=== PATIENT | female | born 1995 | race Hispanic/Latino ===

== ENCOUNTER 2018-08-28 19:50 | Emergency (ER) | payer SELFPAY ==
--- OUTSIDE RECORDS SUMMARY | 2018-08-28 19:52 | XMS REPORT | Continuity of Care Document ---
:1995 Author Organization Interface Problems Problem Status Onset Classification Date Comments Source Date Reported Discharge 02/14/2017 [place] Diagnosis: 7 [place] Acute pharyngitis VOMITING Active [place] 6 [place] Discharge 12/07/2015 [place] Diagnosis: 6 [place] Abdominal pain, acute Discharge 12/07/2015 [place] Diagnosis: 6 [place] Nausea & vomiting Medications Medication Details Route Status Patient Ordering Order Source Instructions Provider Date Acetaminophen 300 1 - 2 tab, No Longer [place] MG / Codeine PO, Q4H, Active 017 [facility] Phosphate 30 MG PRN Pain, X Oral Tablet 2 day, # 20 [Tylenol with tab, 0 Codeine #3] Refill(s) {21 See Active [place] (Methylprednisolo Instruction 017 [place] ne 4 MG Oral s, PO, Take Tablet [Medrol]) by mouth as } Pack [Medrol directed on Dosepak] label., # 1 Pack, 0 Refill(s) Dexamethasone 4 mg, 1 mL, Inactive [place] Route: IVP, 017 [place] Drug form: INJ, ONCE, Dosing Weight 34.091, kg, Priority: STAT, Start date: 02/11/17 9:52:00 CDT, Stop date: 02/11/17 9:52:00 CDTNotes: Concentrati on: 4mg/ml Sodium Chloride 1,000 mL, Inactive [place] 0.154 MEQ/ML 1000 ml/hr, 017 [place] Injectable Infuse Solution Over: 1 hr, Route: IV, 1,000, Drug form: INJ, ONCE, Priority: STAT, Dosing Weight 34.091 kg, Start date: 02/11/17 9:50:00 CDT, Duration: 1 doses or times, Stop date: 02/11/17 9:50:00 CDT Bicillin C-R 1,200,000 Inactive [place] unit, 2 mL, 017 [place] Route: IM, Drug form: INJ, ONCE, Dosing Weight 34.091, kg, Start date: 02/11/17 9:49:00 CDT, Stop date: 02/11/17 9:49:00 CDTNotes: (Same as: Bicillin CR) NOT For Daily Use Ondansetron 4 MG 4 mg=1 tab, Active [place] Disintegrating PO, BID, 016 [place] Tablet [Zofran] PRN Nausea and Vomiting, Dissolve tab under tongue, X 5 day, # 10 tab, 0 Refill(s) Sodium Chloride 1,000 mL, Inactive [place] 0.154 MEQ/ML Infuse 016 [place] Injectable Over: 1 hr, Solution Route: IV, ONCE, Priority: STAT, Dosing Weight 70.455 kg, Start date: 12/04/15 18:24:00, Duration: 1 doses or times, Stop date: 12/04/15 18:24:00 Saline Flush 0.9% 10 mL, Inactive [place] Route: IVP, 016 [place] Drug Form: INJ, Dosing Weight 70.455, kg, PRN, PRN Line Flush, Start date: 12/04/15 18:24:00, Duration: 30 day, Stop date: 01/03/16 18:23:00Not es: (Same as: BD Posiflush) Ondansetron 4 mg, Inactive [place] Route: IVP, 016 [place] ONCE, Dosing Weight 70.455, kg, Priority: STAT, Start date: 12/04/15 18:24:00, Stop date: 12/04/15 18:24:00 Allergies, Adverse Reactions, Alerts Substance Category Reaction Severity Reaction Status Date Comments Source type Reported Immunizations Immunization Date Given Site Status Last Updated Comments Source Results Order Name Results Value Reference Date Interpretation Comments Source Range URINE AND UA <=1.0 mg/dL 0.1 - 1.0 02/11 [facility] Urobilinogen /2016 [place] URINE AND UA Spec Grav 1.016 <=1.030 02/11 STOOL /2016 [place] URINE AND UA Bacteria Occasional None Seen 02/11 [facility] /HPF /HPF /2016 [place] URINE AND UA Mucus Few /LPF None Seen 02/11 [facility] /LPF /2016 [place] URINE AND UA Leuk Est Negative Negative 02/11 [place] (02/11/17 11:23 AM) [place] URINE AND UA RBC null 0 - 2 02/11 [place] URINE AND UA WBC 1 /HPF 0 - 5 02/11 [place] URINE AND UA Sq Epi Occasional Few /LPF 02/11 STOOL /LPF /2016 [place] URINE AND UA Glucose Negative Negative 02/11 [facility] mg/dL mg/dL [place] URINE AND UA Blood Negative Negative 02/11 [place] (02/11/17 11:23 AM) [place] URINE AND UA Bili Negative Negative 02/11 [place] *NA* [place] (02/11/17 11:23 AM) URINE AND UA Ketones Negative Negative 02/11 [facility] mg/dL mg/dL [place] URINE AND UA Nitrite Negative Negative 02/11 [place] (02/11/17 11:23 AM) [place] URINE AND UA Color Yellow Yellow 02/11 [place] *NA* [place] (02/11/17 11:23 AM) URINE AND UA Turbidity Slight Clear 02/11 [place] *ABN* [place] (02/11/17 11:23 AM) URINE AND UA pH 5.0 5.0 - 8.0 02/11 [place] URINE AND UA Protein Negative Negative 02/11 [facility] mg/dL mg/dL [place] URINE CHEM U Preg Negative Negative 02/11 [place] (02/11/17 11:23 AM) [place] CHEM PANEL Lipase Lvl 125 unit/L 73 - 393 02/11 [place] CHEM PANEL eGFR 120 02/11 Result Comment: The eGFR is calculated using the CKD-EPI formula. In most young, healthy individuals the eGFR will be >90 mL/ min/1.73m2. The eGFR declines with age. An eGFR of 60-89 may be normal in mL/min/1.73 some populations, particularly the elderly, for whom the CKD-EPI formula has not been extensively validated. Use of the eGFR is not recommended in the following populations: [place] m2 [place] Individuals with unstable creatinine concentrations, including patients and those with serious co-morbid conditions. Patients with extremes in muscle mass or diet. The data above are obtained from the National Kidney Disease Education Program (NKDEP) which additionally recommends that when the eGFR is used in patients with extremes of body mass index for purposes of drug dosing, the eGFR should be multiplied by the estimated BMI. CHEM PANEL Potassium Lvl 3.5 meq/L 3.5 - 5.1 02/11 [place] CHEM PANEL Sodium Lvl 137 meq/L 135 - 145 02/11 [place] CHEM PANEL Calcium Lvl 9.3 mg/dL 8.5 - 10.5 02/11 [place] CHEM PANEL CO2 29 meq/L 24 - 32 02/11 [place] CHEM PANEL Chloride Lvl 100 meq/L 95 - 109 02/11 [place] CHEM PANEL Glucose Lvl 128 mg/dL 70 - 99 02/11 [place] CHEM PANEL BUN 7 mg/dL 7 - 22 02/11 [place] CHEM PANEL Creatinine 0.73 mg/dL 0.50 - 02/11 Lvl 1.40 [place] CHEM PANEL AGAP 11.5 meq/L 10.0 - 02/11 MH 20.0 [place] HEMATOLOGY RBC 4.55 M/CMM 4.20 - 02/11 MH 5.40 [place] HEMATOLOGY WBC 23.3 K/CMM 3.7 - 10.4 02/11 [place] HEMATOLOGY Hgb 12.9 g/dL 12.0 - 02/11 MH 16.0 [place] HEMATOLOGY MCH 28.5 pg 27.0 - 02/11 MH 31.0 [place] HEMATOLOGY Hct 39.4 % 36.0 - 02/11 MH 48.0 [place] HEMATOLOGY MCV 86.5 fL 80.0 - 02/11 MH 98.0 [place] HEMATOLOGY Platelet 273 K/CMM 133 - 450 02/11 [place] HEMATOLOGY MCHC 32.9 g/dL 32.0 - 02/11 MH 36.0 [place] HEMATOLOGY RDW 13.8 % 11.5 - 02/11 MH 14. [place] HEMATOLOGY MPV 9.6 fL 7.4 - 10.4 02/11 [place] HEMATOLOGY Segs-Bands # 21.4 K/CMM 1.5 - 8.1 02/11 [place] HEMATOLOGY Monocytes # 0.7 K/CMM 0.0 - 0.8 02/11 [place] HEMATOLOGY Segs 80.0 % 45.0 - 02/11 75.0 [place] HEMATOLOGY Lymphocytes # 1.2 K/CMM 1.0 - 5.5 02/11 [place] HEMATOLOGY Bands 12.0 % 0.0 - 11.0 02/11 [place] HEMATOLOGY Lymphocytes 5.0 % 20.0 - 02/11 40.0 [place] HEMATOLOGY Plt Morph Normal 02/11 [facility] (02/11/17 10:09 AM) [facility] HEMATOLOGY Atypical 0.0 % <=0.0 % 02/11 Lymphs [place] HEMATOLOGY Tot Cell Ct 100 02/11 [place] HEMATOLOGY Monocytes 3.0 % 2.0 - 12.0 02/11 [place] HEMATOLOGY Smudge Slight 02/11 [place] HEMATOLOGY Hypochrom 1+ None Seen 02/11 [facility] (02/11/17 10:09 AM) [facility] Neck soft Neck soft CT neck soft tissues with intravenous contrast 02/11/2017 11:12 AM CDT 02/11 - tissue w tissue w - [facility] contrast CT contrast CT [facility] Clinical: Evaluate for abscess, fever, sore throat. Read by: Corey Bui MD Dictated Date/time: 02/11/17 12:09 Electronically Signed by: Corey Bui MD 02/11/17 12:15 FINAL REPORT Comparison: No prior exam. Technique: Axial images were obtained. Sagittal and coronal MPR images are also submitted. The DLP is 435 mGy*cm. This exam was performed according to our department dose optimization protocol, which i ncludes automated exposure control, adjustment of the mA and/or kV according to patient size and/or use of iterative reconstruction technique. Findings: Moderate prominence of the bilateral palatine tonsils is seen. No tonsillar abscess is seen. No parapharyngeal or peritonsillar abscess or cellulitis is identified. The retropharyngeal soft tissues appear symmetric. The upper aerodigestive tract otherwise appears unremarkable. The major salivary glands and thyroid gland appear unremarkable. Bilateral upper deep cervical chain (bilateral levels 2A) adenopathy is present, measuring up to 2.9 x 1.5 cm on the left. Scattered shotty lymph nodes are seen in the lower neck stations. No lymph node necrosis is identified. The visualized paranasal sinuses appear well aerated. The cervical spine appears unremarkable. Impression: 1. Moderately prominent bilateral palatine tonsils. No tonsillar or peritonsillar abscess identified. Normal retropharyngeal soft tissues. 2. Bilateral upper neck adenopathy, likely reactive. Follow-up recommended. URINE AND UA WBC 0-2 /HPF None Seen 12/04 [facility] /HPF [place] URINE AND UA Sq Epi Few /LPF Few /LPF 12/04 [facility] [place] URINE AND UA RBC None Seen 0 - 2 12/04 [facility] [place] (12/04/15 7:39 PM) [place] URINE AND UA Bacteria Few /HPF None Seen 12/04 [facility] /HPF [place] URINE AND UA Mucus Few /LPF None Seen 12/04 [facility] /LPF /2015 [place] URINE AND UA Ketones Negative Negative 12/04 [facility] mg/dL mg/dL [place] URINE AND UA Glucose Negative Negative 12/04 [facility] mg/dL mg/dL [place] URINE AND UA Protein Negative Negative 12/04 [facility] mg/dL mg/dL [place] URINE AND UA 0.2 EU/dL 0.1 - 1.0 12/04 [facility] Urobilinogen [place] URINE AND UA Blood Negative Negative 12/04 [facility] [place] (12/04/15 7:39 PM) [place] URINE AND UA Leuk Est Negative Negative 12/04 [facility] [place] (12/04/15 7:39 PM) [place] URINE AND UA Nitrite Negative Negative 12/04 STO[facility] [place] (12/04/15 7:39 PM) [place] URINE AND UA Bili Negative Negative 12/04 [facility] [place] *NA* [place] (12/04/15 7:39 PM) URINE AND UA Color Yellow Yellow 12/04 [facility] [place] *NA* [place] (12/04/15 7:39 PM) URINE AND UA Turbidity Clear Clear 12/04 [facility] [place] (12/04/15 7:39 PM) [place] URINE AND UA pH 7.5 5.0 - 8.0 12/04 [facility] [place] URINE AND UA Spec Grav 1.020 <=1.030 12/04 [place] [place] URINE CHEM U Preg Negative Negative 12/04 [place] (12/04/15 7:39 PM) [place] CHEM PANEL Lipase Lvl 111 unit/L 73 - 393 12/03 [place] CHEM PANEL Globulin 3.8 g/dL 2.0 - 4.0 12/03 [place] CHEM PANEL B/C Ratio 6 6 - 25 12/03 [place] CHEM PANEL AGAP 10.5 meq/L 10.0 - 12/03 MH 20.0 /2015 [place] CHEM PANEL A/G Ratio 1.0 0.7 - 1.6 12/03 [place] CHEM PANEL Glucose Lvl 96 mg/dL 70 - 99 12/03 [place] CHEM PANEL BUN 5 mg/dL 7 - 22 12/03 [place] CHEM PANEL CO2 27 meq/L 24 - 32 12/03 [place] CHEM PANEL Chloride Lvl 107 meq/L 95 - 109 12/03 [place] CHEM PANEL Potassium Lvl 3.5 meq/L 3.5 - 5.1 12/03 [place] CHEM PANEL Sodium Lvl 141 meq/L 135 - 145 12/03 [place] CHEM PANEL Creatinine 0.77 mg/dL 0.50 - 12/03 [facility] Lvl 1.40 [place] CHEM PANEL AST 76 unit/L 0 - 37 12/03 [place] CHEM PANEL ALT 132 unit/L 0 - 65 12/03 [place] CHEM PANEL Albumin Lvl 3.8 g/dL 3.5 - 5.0 12/03 [place] CHEM PANEL Total Protein 7.6 g/dL 6.4 - 8.4 12/03 [place] CHEM PANEL Calcium Lvl 8.6 mg/dL 8.5 - 10.5 12/03 [place] CHEM PANEL Bili Total 0.7 mg/dL 0.2 - 1.3 12/03 [place] CHEM PANEL Alk Phos 98 unit/L 39 - 136 12/03 [place] CHEM PANEL eGFR 114 12/03 Result Comment: The eGFR is calculated using the CKD-EPI formula. In most young, healthy individuals the eGFR will be >90 mL/ min/1.73m2. The eGFR declines with age. An eGFR of 60-89 may be normal in [place] mL/min/1.73 /2016 some populations, particularly the elderly, for whom the CKD-EPI formula has not been extensively validated. Use of the eGFR is not recommended in the following populations: [place] m2 [place] Individuals with unstable creatinine concentrations, including patients and those with serious co-morbid conditions. Patients with extremes in muscle mass or diet. The data above are obtained from the National Kidney Disease Education Program (NKDEP) which additionally recommends that when the eGFR is used in patients with extremes of body mass index for purposes of drug dosing, the eGFR should be multiplied by the estimated BMI. HEMATOLOGY MCV 82.7 fL 80.0 - 12/03 [facility] 98.0 /2015 [place] HEMATOLOGY MCH 27.1 pg 27.0 - 12/03 MH 31.0 /2015 [place] HEMATOLOGY Hct 32.5 % 36.0 - 12/03 MH 48.0 /2015 [place] HEMATOLOGY Hgb 10.6 g/dL 12.0 - 12/03 MH 16.0 [place] HEMATOLOGY MPV 9.7 fL 7.4 - 10.4 12/03 [place] HEMATOLOGY RBC 3.93 M/CMM 4.20 - 12/03 MH 5.40 /2015 [place] HEMATOLOGY WBC 4.9 K/CMM 3.7 - 10.4 12/03 [place] HEMATOLOGY Platelet 276 K/CMM 133 - 450 12/03 [place] HEMATOLOGY RDW 14.4 % 11.5 - 12/03 MH 14.5 [place] HEMATOLOGY MCHC 32.8 g/dL 32.0 - 12/03 MH 36.0 /2016 [place] HEMATOLOGY Segs 68.1 % 45.0 - 12/03 MH 75.0 /2015 [place] HEMATOLOGY Segs-Bands # 3.3 K/CMM 1.5 - 8.1 12/03 [place] HEMATOLOGY Basophils 0.8 % 0.0 - 1.0 12/03 [place] HEMATOLOGY Monocytes 16.0 % 2.0 - 12.0 12/03 [place] HEMATOLOGY Eosinophils 0.8 % 0.0 - 4.0 12/03 [place] HEMATOLOGY Lymphocytes 14.3 % 20.0 - 12/03 MH 40.0 2016 [place] HEMATOLOGY Eosinophils # 0.0 K/CMM 0.0 - 0.5 12/03 [place] HEMATOLOGY Monocytes # 0.8 K/CMM 0.0 - 0.8 12/03 [place] HEMATOLOGY Basophils # 0.0 K/CMM 0.0 - 0.2 12/03 [place] HEMATOLOGY Lymphocytes # 0.7 K/CMM 1.0 - 5.5 12/03 [place] Abdomen/Pel Abdomen/Pelvi EXAM: 12/03 - vis w IV s w IV /2015 - [facility] contrast CT contrast CT CT abdomen and pelvis with contrast. [facility] Read by: Roman Watts MD Dictated Date/time: 12/04/15 21:12 INDICATION: Electronically Signed by: Roman Watts MD 12/04/15 21:14 FINAL REPORT Abdominal pain, acute. TECHNIQUE: Contiguous axial CT images of the abdomen and pelvis. Intravenous contrast: Present. Oral contrast: Absent. DLP 834 mGy-cm. COMPARISON: None. FINDINGS: Lower chest: Partially imaged. Lung bases: Unremarkable. Cardiac apex: Unremarkable. Solid abdominal viscera: Liver: Unremarkable. Gallbladder: Unremarkable. Pancreas: Unremarkable. Spleen: Unremarkable. Adrenal glands: Unremarkable. Right kidney: No hydronephrosis. Left kidney: No hydronephrosis. Urinary bladder: Unremarkable. Abdominal aorta: Unremarkable. Peritoneal: Free fluid: Trace Free air: None. Other: No pathologic sized lymph nodes in the upper abdomen. Bowel: Stomach: Unremarkable. Small bowel: Unremarkable. Appendix: Unremarkable. Colon: Unremarkable. Rectum: Unremarkable. Uterus: Unremarkable. Bones: Unremarkable. IMPRESSION: 1. No CT evidence of acute process of the abdomen. Normal appendix Chest 1view Chest 1view EXAM: 12/03 - DX DX - [facility] Single view chest. [place] Read by: Roman Watts MD Dictated Date/time: 12/04/15 19:42 INDICATION: Electronically Signed by: Roman Watts MD 12/04/15 19:43 FINAL REPORT Chest pain. COMPARISON: Chest x-ray: None. FINDINGS: Cardiac silhouette: Unremarkable. Elenita: Unremarkable. Lobar consolidation: None. Pleural effusion: None. Pneumothorax: None. Other: None. Bones: Unremarkable. Other: None. IMPRESSION: 1. No acute cardiopulmonary process. Vital Signs Vital Sign Value Date Comments Source Systolic (mm Hg) 116 02/11/2017 [facility] Diastolic (mm Hg) 73 02/11/2017 [facility] [place] Temperature Oral (F) 100 F 02/11/2017 [place] Respitory Rate 20 02/11/2017 [place] Heart Rate 111 02/11/2017 [place] Heart Rate 134 02/11/2017 [place] Systolic (mm Hg) 139 02/11/2017 [place] Diastolic (mm Hg) 89 02/11/2017 [place] Weight 34.091 02/11/2017 [place] Temperature Oral (F) 100.0 F 02/11/2017 [place] Respitory Rate 20 02/11/2017 [place] Systolic (mm Hg) 127 12/05/2015 [place] Diastolic (mm Hg) 79 12/05/2015 [place] Temperature Oral (F) 98.9 F 12/05/2015 [place] Respitory Rate 18 12/05/2015 [place] Heart Rate 90 12/05/2015 [place] Temperature Oral (F) 99.5 F 12/05/2015 [place] Respitory Rate 18 12/05/2015 [place] Heart Rate 92 12/05/2015 [place] Systolic (mm Hg) 125 12/05/2015 [place] Diastolic (mm Hg) 81 12/05/2015 [place] Weight 70.455 12/04/2015 [place] BMI Calculated 27.51 12/04/2015 [place] Heart Rate 100 12/04/2015 [place] Systolic (mm Hg) 122 12/04/2015 [place] Diastolic (mm Hg) 85 12/04/2015 [place] Height 160.02 cm 12/04/2015 [place] Respitory Rate 18 12/04/2015 [place] Temperature Oral (F) 99.7 F 12/04/2015 [place] Encounters Location Location Encounter Encounter Reason Attending ADM DC Status Source Details Type Number For Provider Date Date Visit [facility] [id number] [facility] 12/03 12/04 [facility] [place] /[facility] [place] [facility] [id number] [place] 02/11 02/11 [place] /2016 [place] Procedures Procedure Code Date Perfomer Comments Source Biopsy of liver [id number] [place]
--- OUTSIDE RECORDS SUMMARY | 2018-08-28 19:53 | XMS REPORT | Summary of Care ---
:1995 Author Organization [facility] Address [address], [place] [address]- Encounter [facility]) [id number] Date(s): 02/11/17 - 02/11/17 [facility] [address] [place] [address]- Discharge Diagnosis: Acute pharyngitis Discharge Disposition: Home or Self Care Attending Physician: Brooke Eli MD Vital Signs Most recent to oldest [Reference Range]: 1 2 Temperature Oral [96.4-99.1 DegF] 100 DegF 100.0 DegF *HI* *HI* (02/11/17 12:54 PM) (02/11/17 9:30 AM) Blood Pressure [90-140/60-90 mmHg] 116/73 mmHg 139/89 mmHg (02/11/17 12:54 PM) (02/11/17 9:30 AM) Respiratory Rate [14-20 BRMIN] 20 BRMIN 20 BRMIN (02/11/17 12:54 PM) (02/11/17 9:30 AM) Peripheral Pulse Rate [60-100 bpm] 111 bpm 134 bpm *HI* *HI* (02/11/17 12:54 PM) (02/11/17 9:30 AM) Weight 34.091 kg (02/11/17 9:30 AM) Problem List Condition Effective Dates Status Health Status Informant Liver problem(Confirmed)1 Resolved 1Fatty Allergies, Adverse Reactions, Alerts Substance Reaction Severity Status NKDA Active Medications Bicillin C-R 1,200,000 unit, 2 mL, Route: IM, Drug form: INJ, ONCE, Dosing Weight 34.091, kg , Start date: 02/11/17 9:49:00 CDT, Stop date: 02/11/17 9:49:00 CDT Notes: (Same as: Bicillin CR) NOT For Daily Use Start Date: 02/11/17 Stop Date: 02/11/17 Status: Completeddexamethasone 4 mg, 1 mL, Route: IVP, Drug form: INJ, ONCE, Dosing Weight 34.091, kg, Priority : STAT, Start date: 02/11/17 9:52:00 CDT, Stop date: 02/11/17 9:52:00 CDT Notes: Concentration: 4mg/ml Start Date: 02/11/17 Stop Date: 02/11/17 Status: CompletedMedrol Dosepak 4 mg oral tablet See Instructions, PO, Take by mouth as directed on label., # 1 Pack, 0 Refill(s) Start Date: 02/11/17 Stop Date: 02/17/17 Status: OrderedSodium Chloride 0.9% (Bolus) IV 1,000 mL, 1000 ml/hr, Infuse Over: 1 hr, Route: IV, 1,000, Drug form: INJ, ONCE , Priority: STAT, Dosing Weight 34.091 kg, Start date: 02/11/17 9:50:00 CDT, Duration: 1 doses or times, Stop date: 02/11/17 9:50:00 CDT Start Date: 02/11/17 Stop Date: 02/11/17 Status: CompletedTylenol with Codeine #3 oral tablet 1 - 2 tab, PO, Q4H, PRN Pain, X 2 day, # 20 tab, 0 Refill(s) Start Date: 02/11/17 Stop Date: 02/13/17 Status: Completed Results ELECTROLYTES Most recent to oldest [Reference Range]: 1 Sodium Lvl [135-145 mEq/L] 137 mEq/L (02/11/17 10:09 AM) Potassium Lvl [3.5-5.1 mEq/L] 3.5 mEq/L (02/11/17 10:09 AM) Chloride Lvl [95-109 mEq/L] 100 mEq/L (02/11/17 10:09 AM) CO2 [24-32 mEq/L] 29 mEq/L (02/11/17 10:09 AM) AGAP [10.0-20.0 mEq/L] 11.5 mEq/L (02/11/17 10:09 AM) CHEM PANEL Most recent to oldest [Reference Range]: 1 Creatinine Lvl [0.50-1.40 mg/dL] 0.73 mg/dL (02/11/17 10:09 AM) eGFR 120 mL/min/1.73m2 1 *NA* (02/11/17 10:09 AM) BUN [7-22 mg/dL] 7 mg/dL (02/11/17 10:09 AM) Glucose Lvl [70-99 mg/dL] 128 mg/dL *HI* (02/11/17 10:09 AM) Calcium Lvl [8.5-10.5 mg/dL] 9.3 mg/dL (02/11/17 10:09 AM) Lipase Lvl [73-393 unit/L] 125 unit/L (02/11/17 10:09 AM) 1Result Comment: The eGFR is calculated using the CKD-EPI formula. In most young , healthy individualsthe eGFR will be >90 mL/min/1.73m2. The eGFR declines with age. An eGFR of 60-89 may be normal in some populations, particularly the elderly, for whom the CKD-EPI formula has not been extensively validated. Use of the eGFR is not recommended in the following populations: Individuals with unstable creatinine concentrations, including patients and those with serious co-morbid conditions. Patients with extremes in muscle mass or diet. The data above are obtained from the National Kidney Disease Education Program ( NKDEP) which additionally recommends that when the eGFR is used in patients with extremes of body mass index for purposesof drug dosing, the eGFR should be multiplied by the estimated BMI.URINE CHEM Most recent to oldest [Reference Range]: 1 U Preg [Negative] Negative (02/11/17 11:23 AM) URINE AND STOOL Most recent to oldest [Reference Range]: 1 UA Turbidity [Clear] Slight *ABN* (02/11/17 11:23 AM) UA Color [Yellow] Yellow *NA* (02/11/17 11:23 AM) UA pH [5.0-8.0] 5.0 (02/11/17 11:23 AM) UA Spec Grav [<=1.030] 1.016 (02/11/17 11:23 AM) UA Glucose [Negative mg/dL] Negative mg/dL *NA* (02/11/17 11:23 AM) UA Blood [Negative] Negative (02/11/17 11:23 AM) UA Ketones [Negative mg/dL] Negative mg/dL *NA* (02/11/17 AM) UA Protein [Negative mg/dL] Negative mg/dL (02/11/17 AM) UA Urobilinogen [0.1-1.0 mg/dL] <=1.0 mg/dL *NA* (02/11/17 AM) UA Bili [Negative] Negative *NA* (02/11/17 AM) UA Leuk Est [Negative] Negative (02/11/17:23 AM) UA Nitrite [Negative] Negative (02/11/17 AM) UA WBC [0-5 /HPF] 1 /HPF (02/11/17 AM) UA RBC [0-2 /HPF] <1 /HPF (02/11/17: AM) UA Bacteria [None Seen /HPF] Occasional /HPF *NA* (02/11/17 AM) UA Sq Epi [Few /LPF] Occasional /LPF *NA* (02/11/17:23 AM) UA Mucus [None Seen /LPF] Few /LPF *NA* (02/11/17 11:23 AM) HEMATOLOGY Most recent to oldest [Reference Range]: 1 WBC [3.7-10.4 K/CMM] 23.3 K/CMM *HI* (02/11/17 10:09 AM) RBC [4.20-5.40 M/CMM] 4.55 M/CMM (02/11/17 10:09 AM) Hgb [12.0-16.0 g/dL] 12.9 g/dL (02/11/17 10:09 AM) Hct [36.0-48.0 %] 39.4 % (02/11/17 10:09 AM) MCV [80.0-98.0 fL] 86.5 fL (02/11/17 10:09 AM) MCH [27.0-31.0 pg] 28.5 pg (02/11/17 10:09 AM) MCHC [32.0-36.0 g/dL] 32.9 g/dL (02/11/17 10:09 AM) RDW [11.5-14.5 %] 13.8 % (02/11/17 10:09 AM) Platelet [133-450 K/CMM] 273 K/CMM (02/11/17 10:09 AM) MPV [7.4-10.4 fL] 9.6 fL (02/11/17 10:09 AM) Segs [45.0-75.0 %] 80.0 % *HI* (02/11/17 10:09 AM) Bands [0.0-11.0 %] 12.0 % *HI* (02/11/17 10:09 AM) Lymphocytes [20.0-40.0 %] 5.0 % *LOW* (02/11/17 10:09 AM) Atypical Lymphs [<=0.0 %] 0.0 % (02/11/17 10:09 AM) Monocytes [2.0-12.0 %] 3.0 % (02/11/17 10:09 AM) Segs-Bands # [1.5-8.1 K/CMM] 21.4 K/CMM *HI* (02/11/17 10:09 AM) Lymphocytes # [1.0-5.5 K/CMM] 1.2 K/CMM (02/11/17 10:09 AM) Monocytes # [0.0-0.8 K/CMM] 0.7 K/CMM (02/11/17 10:09 AM) Tot Cell Ct 100 *NA* (02/11/17 10:09 AM) Hypochrom [None Seen] 1+ (02/11/17 10:09 AM) Smudge Slight *Unknown* (02/11/17 10:09 AM) Plt Morph Normal (02/11/17 10:09 AM) Immunizations No data available for this section Procedures Procedure Date Related Diagnosis Body Site Biopsy of liver Social History Social History Type Response Smoking Status Never smoker; Ready to change: No; Concerns about tobacco use in household: No; Exposure to Tobacco Smoke None; Cigarette Smoking Last 365 Days No; Reg Smoking Cessation Counseling No Assessment and Plan No data available for this section
--- OUTSIDE RECORDS SUMMARY | 2018-08-28 19:53 | XMS REPORT | Summary of Care ---
:[address] [facility] Address [address], [place] [address]- Encounter HQ Yane(MARY ELLEN) [id number] Date(s): 12/04/15 - 12/04/[address] [facility] [address] [place] [address]- Discharge Diagnosis: Abdominal pain, acute Discharge Diagnosis: Nausea & vomiting Discharge Disposition: Home Attending Physician: Brooke Eli MD Vital Signs Most recent to oldest 1 2 3 [Reference Range]: Height 160.02 cm (12/04/15 5:31 PM) Temperature Oral [96.4-99.1 98.9 DegF 99.5 DegF 99.7 DegF DegF] (12/04/15 9:34 PM) *HI* *HI* (12/04/15 7:47 PM) (12/04/15 5:31 PM) Blood Pressure [90-140/60-90 127/79 mmHg 125/81 mmHg 122/85 mmHg mmHg] (12/04/15 9:34 PM) (12/04/15 7:47 PM) (12/04/15 5:31 PM) Respiratory Rate [14-20 BRMIN] 18 BRMIN 18 BRMIN 18 BRMIN (12/04/15 9:34 PM) (12/04/15 7:47 PM) (12/04/15 5:31 PM) Peripheral Pulse Rate [60-100 90 bpm 92 bpm 100 bpm bpm] (12/04/15 9:34 PM) (12/04/15 7:47 PM) (12/04/15 5:31 PM) Weight 70.455 kg (12/04/15 5:31 PM) Body Mass Index 27.51 m2 (12/04/15 5:31 PM) Problem List Condition Effective Dates Status Health Status Informant Liver problem(Confirmed)1 Resolved 1Fatty Allergies, Adverse Reactions, Alerts Substance Reaction Severity Status NKDA Active Medications ondansetron 4 mg, Route: IVP, ONCE, Dosing Weight 70.455, kg, Priority: STAT, Start date: 18:24:00, Stop date: 12/04/15 18:24:00 Start Date: 12/04/15 Stop Date: 12/04/15 Status: CompletedSaline Flush 0.9% 10 mL, Route: IVP, Drug Form: INJ, Dosing Weight 70.455, kg, PRN, PRN Line Flush , Start date: 12/04/15 18:24:00, Duration: 30 day, Stop date: 01/03/16 18:23:00 Notes: (Same as: BD Posiflush) Start Date: 12/04/15 Stop Date: 12/04/15 Status: DiscontinuedSodium Chloride 0.9% (Bolus) IV 1,000 mL, Infuse Over: 1 hr, Route: IV, ONCE, Priority: STAT, Dosing Weight 70.455 kg, Start date: 12/04/15 18:24:00, Duration: 1 doses or times, Stop date : 12/04/15 18:24:00 Start Date: 12/04/15 Stop Date: 12/04/15 Status: CompletedZofran ODT 4 mg oral tablet, disintegrating 4 mg=1 tab, PO, BID, PRN Nausea and Vomiting, Dissolve tab under tongue, X 5 day , # 10 tab, 0 Refill(s) Start Date: 12/04/15 Stop Date: 12/09/15 Status: Ordered Results ELECTROLYTES Most recent to oldest [Reference Range]: 1 Sodium Lvl [135-145 mEq/L] 141 mEq/L (12/04/15 6:28 PM) Potassium Lvl [3.5-5.1 mEq/L] 3.5 mEq/L (12/04/15 6:28 PM) Chloride Lvl [95-109 mEq/L] 107 mEq/L (12/04/15 6:28 PM) CO2 [24-32 mEq/L] 27 mEq/L (12/04/15 6:28 PM) AGAP [10.0-20.0 mEq/L] 10.5 mEq/L (12/04/15 6:28 PM) CHEM PANEL Most recent to oldest [Reference Range]: 1 Creatinine Lvl [0.50-1.40 mg/dL] 0.77 mg/dL (12/04/15 6:28 PM) eGFR 114 mL/min/1.73m2 1 *NA* (12/04/15 6:28 PM) BUN [7-22 mg/dL] 5 mg/dL *LOW* (12/04/15 6:28 PM) B/C Ratio [6-25] 6 (12/04/15 6:28 PM) Glucose Lvl [70-99 mg/dL] 96 mg/dL (12/04/15 6:28 PM) Total Protein [6.4-8.4 g/dL] 7.6 g/dL (12/04/15 6:28 PM) Albumin Lvl [3.5-5.0 g/dL] 3.8 g/dL (12/04/15 6:28 PM) Globulin [2.0-4.0 g/dL] 3.8 g/dL (12/04/15 6:28 PM) A/G Ratio [0.7-1.6] 1.0 (12/04/15 6:28 PM) Calcium Lvl [8.5-10.5 mg/dL] 8.6 mg/dL (12/04/15 6:28 PM) ALT [0-65 unit/L] 132 unit/L *HI* (12/04/15 6:28 PM) AST [0-37 unit/L] 76 unit/L *HI* (12/04/15 6:28 PM) Alk Phos [39-136 unit/L] 98 unit/L (12/04/15 6:28 PM) Bili Total [0.2-1.3 mg/dL] 0.7 mg/dL (12/04/15 6:28 PM) Lipase Lvl [73-393 unit/L] 111 unit/L (12/04/15 6:28 PM) 1Result Comment: The eGFR is calculated using [...] [Reference Range]: 1 U Preg [Negative] Negative (12/04/15 7:39 PM) URINE AND STOOL Most recent to oldest [Reference Range]: 1 UA Turbidity [Clear] Clear (12/04/15 7:39 PM) UA Color [Yellow] Yellow *NA* (12/04/15 7:39 PM) UA pH [5.0-8.0] 7.5 (12/04/15 7:39 PM) UA Spec Grav [<=1.030] 1.020 (12/04/15 7:39 PM) UA Glucose [Negative mg/dL] Negative mg/dL (12/04/15 7:39 PM) UA Blood [Negative] Negative (12/04/15 7:39 PM) UA Ketones [Negative mg/dL] Negative mg/dL *NA* (12/04/15 7:39 PM) UA Protein [Negative mg/dL] Negative mg/dL (12/04/15 7:39 PM) UA Urobilinogen [0.1-1.0 EU/dL] 0.2 EU/dL (12/04/15 7:39 PM) UA Bili [Negative] Negative *NA* (12/04/15 7:39 PM) UA Leuk Est [Negative] Negative (12/04/15 7:39 PM) UA Nitrite [Negative] Negative (12/04/15 7:39 PM) UA WBC [None Seen /HPF] 0-2 /HPF (12/04/15 7:39 PM) UA RBC [0-2] None Seen (12/04/15 7:39 PM) UA Bacteria [None Seen /HPF] Few /HPF (12/04/15 7:39 PM) UA Sq Epi [Few /LPF] Few /LPF (12/04/15 7:39 PM) UA Mucus [None Seen /LPF] Few /LPF (12/04/15 7:39 PM) HEMATOLOGY Most recent to oldest [Reference Range]: 1 WBC [3.7-10.4 K/CMM] 4.9 K/CMM (12/04/15 6:28 PM) RBC [4.20-5.40 M/CMM] 3.93 M/CMM *LOW* (12/04/15 6:28 PM) Hgb [12.0-16.0 g/dL] 10.6 g/dL *LOW* (12/04/15 6:28 PM) Hct [36.0-48.0 %] 32.5 % *LOW* (12/04/15 6:28 PM) MCV [80.0-98.0 fL] 82.7 fL (12/04/15 6:28 PM) MCH [27.0-31.0 pg] 27.1 pg (12/04/15 6:28 PM) MCHC [32.0-36.0 g/dL] 32.8 g/dL (12/04/15 6:28 PM) RDW [11.5-14.5 %] 14.4 % (12/04/15 6:28 PM) Platelet [133-450 K/CMM] 276 K/CMM (12/04/15 6:28 PM) MPV [7.4-10.4 fL] 9.7 fL (12/04/15 6:28 PM) Segs [45.0-75.0 %] 68.1 % (12/04/15 6:28 PM) Lymphocytes [20.0-40.0 %] 14.3 % *LOW* (12/04/15 6:28 PM) Monocytes [2.0-12.0 %] 16.0 % *HI* (12/04/15 6:28 PM) Eosinophils [0.0-4.0 %] 0.8 % (12/04/15 6:28 PM) Basophils [0.0-1.0 %] 0.8 % (12/04/15 6:28 PM) Segs-Bands # [1.5-8.1 K/CMM] 3.3 K/CMM (12/04/15 6:28 PM) Lymphocytes # [1.0-5.5 K/CMM] 0.7 K/CMM *LOW* (12/04/15 6:28 PM) Monocytes # [0.0-0.8 K/CMM] 0.8 K/CMM (12/04/15 6:28 PM) Eosinophils # [0.0-0.5 K/CMM] 0.0 K/CMM (12/04/15 6:28 PM) Basophils # [0.0-0.2 K/CMM] 0.0 K/CMM (12/04/15 6:28 PM) Immunizations No data available for this section Procedures Procedure Date Related Diagnosis Body Site Biopsy of liver Social History Social History Type Response Smoking Status Never smoker; Exposure to Tobacco Smoke None; Cigarette Smoking Last 365 Days No; Reg Smoking Cessation Counseling No Assessment and Plan No data available for this section
--- NOTE | 2018-08-28 21:11 | ER ---
Nurse's Notes [facility] Name: Edna Jhaveri Age: 23 yrs Sex: Female : 1995 Arrival Date: 08/28/2018 Time: 19:56 Bed 18 Private MD: Diagnosis: Acute serous otitis media, left ear;Acute pharyngitis Presentation: 08/28 20:05 Presenting complaint: Patient states: sore throat and fever for one day. Transition of la1 care: patient was not received from another setting of care. Onset of symptoms was August 28, 2018. Risk Assessment: Do you want to hurt yourself or someone else? Patient reports no desire to harm self or others. Initial Sepsis Screen: Does the patient meet any 2 criteria? No. Patient's initial sepsis screen is negative. Does the patient have a suspected source of infection? No. Patient's initial sepsis screen is negative. Care prior to arrival: None. 20:05 Method Of Arrival: Ambulatory la1 20:05 Acuity: WYATT 4 la1 Triage Assessment: 21:01 General: Appears in no apparent distress. Behavior is calm, cooperative. ak1 Historical: - Allergies: 20:05 No Known Allergies; la1 - PMHx: 20:05 None; la1 - Immunization history:: Adult Immunizations up to date. - Social history:: Smoking status: Patient/guardian denies using tobacco. - Ebola Screening: : No symptoms or risks identified at this time. Screenin:01 Abuse screen: Denies threats or abuse. Denies injuries from another. Nutritional ak1 screening: No deficits noted. Tuberculosis screening: No symptoms or risk factors identified. Fall Risk None identified. Assessment: 21:00 General: Appears in no apparent distress. Pain: Complains of pain in throat. Neuro: No ak1 deficits noted. Cardiovascular: No deficits noted. Respiratory: Airway is patent Respiratory effort is even, unlabored, Breath sounds are clear. GI: No signs and/or symptoms were reported involving the gastrointestinal system. : No signs and/or symptoms were reported regarding the genitourinary system. EENT: Throat is clear with gag reflex present. Derm: No signs and/or symptoms reported regarding the dermatologic system. Musculoskeletal: No signs and/or symptoms reported regarding the musculoskeletal system. Vital Signs: 20:05 BP 119 / 85; Pulse 90; Resp 16; Temp 98.6; Pulse Ox 98% on R/A; Weight 81.19 kg; la1 21:18 BP 139 / 92; Pulse 90; Resp 16; Temp 98.8; Pulse Ox 100% on R/A; ak1 ED Course: 19:56 Patient arrived in ED. es 20:05 Triage completed. la1 20:06 Arm band placed on left wrist. la1 20:08 Brooke Hoyt, RN is Primary Nurse. ak1 20:15 Ivan Ryan PA is PHCP. [facility] 20:15 Jesse Brian MD is Attending Physician. [facility] 21:01 Patient has correct armband on for positive identification. Bed in low position. Call ak1 light in reach. Side rails up X 1. Pulse ox on. NIBP on. 21:20 No provider procedures requiring assistance completed. Patient did not have IV access ak1 during this emergency room visit. Administered Medications: 21:30 Drug: Dexamethasone 10 mg Route: IM; Site: right gluteus; ak1 21:30 Follow up: Response: No adverse reaction ak1 Outcome: 21:10 Discharge ordered by . [facility] 21:21 Discharged to home ambulatory, with family. ak1 21:21 Condition: good 21:21 Discharge instructions given to patient, Instructed on discharge instructions, follow up and referral plans. medication usage, safe sex practices, Demonstrated understanding of instructions, follow-up care, medications, Prescriptions given X 1. 21:33 Patient left the ED. ak1 Signatures: Ivan Ryan PA PA jmm Salyer, Edna es Attema, Lee, RN RN la Brooke Hoyt RN RN ak1
--- NOTE | 2018-08-28 21:11 | EDPHYS ---
Physician Documentation [facility] Name: Edna Jhaveri Age: 23 yrs Sex: Female : 1995 Arrival Date: 08/28/2018 Time: 19:56 Bed 18 Private MD: ED Physician Jesse Brian HPI: 08/28 21:07 This 23 yrs old Female presents to ER via Ambulatory with complaints of Sore jmm Throat, Fever. 21:07 The patient presents with sore throat. Onset: The symptoms/episode began/occurred jmm gradually, today. Associated signs and symptoms: Pertinent positives: earache. This is a 23 year old female with no chronic medical conditions that presents to the ED with sore throat and earache beginning today. Denies cough. Complains of body aches. . Historical: - Allergies: 20:05 No Known Allergies; la1 - PMHx: 20:05 None; la1 - Immunization history:: Adult Immunizations up to date. - Social history:: Smoking status: Patient/guardian denies using tobacco. - Ebola Screening: : No symptoms or risks identified at this time. ROS: 21:07 Eyes: Negative for injury, pain, redness, and discharge. jmm 21:07 Neck: Negative for injury, pain, and swelling, Cardiovascular: Negative for chest pain, palpitations, and edema, Respiratory: Negative for shortness of breath, cough, wheezing, and pleuritic chest pain, Abdomen/GI: Negative for abdominal pain, nausea, vomiting, diarrhea, and constipation. 21:07 Constitutional: Positive for body aches. 21:07 ENT: Positive for ear pain, sore throat. 21:07 All other systems are negative. Exam: 21:07 Constitutional: This is a well developed, well nourished patient who is awake, alert, jmm and in no acute distress. Head/Face: atraumatic. Eyes: EOMI, no conjunctival erythema appreciated 21:07 Chest/axilla: Normal chest wall appearance and motion. Cardiovascular: Regular rate and rhythm. No edema appreciated Respiratory: Normal respirations, no respiratory distress appreciated Abdomen/GI: Non distended, soft Skin: General appearance color normal MS/ Extremity: Moves all extremities, no obvious deformities appreciated, no edema noted to the lower extremities Neuro: Awake and alert, normal gait Psych: Behavior is normal, Mood is normal, Patient is cooperative and pleasant 21:07 ENT: TM's: erythema, that is moderate, on the left, Posterior pharynx: Airway: normal, Uvula: normal, erythema, that is mild, peritonsillar mass, is not appreciated. Vital Signs: 20:05 BP 119 / 85; Pulse 90; Resp 16; Temp 98.6; Pulse Ox 98% on R/A; Weight 81.19 kg; la1 21:18 BP 139 / 92; Pulse 90; Resp 16; Temp 98.8; Pulse Ox 100% on R/A; ak1 MDM: 20:22 Patient medically screened. [facility] 21:07 Data reviewed: vital signs, nurses notes. Data interpreted: Pulse oximetry: on room air jmm is 98 %. Interpretation: normal. Counseling: I had a detailed discussion with the patient and/or guardian regarding: the historical points, exam findings, and any diagnostic results supporting the discharge/admit diagnosis, the need for outpatient follow up, to return to the emergency department if symptoms worsen or persist or if there are any questions or concerns that arise at home. 08/28 20:17 Order name: Strep; Complete Time: 20:57 [facility] 08/28 20:56 Order name: Throat Culture EDMS Administered Medications: 21:30 Drug: Dexamethasone 10 mg Route: IM; Site: right gluteus; ak 21:30 Follow up: Response: No adverse reaction ak Disposition: 08/28/18 21:10 Discharged to Home. Impression: Acute serous otitis media, left ear, Acute pharyngitis. - Condition is Stable. - Discharge Instructions: Otitis Media, Adult, Pharyngitis. - Prescriptions for Amoxicillin 875 mg Oral Tablet - take 1 tablet by ORAL route every 12 hours for 10 days; 20 tablet. - Medication Reconciliation Form, Thank You Letter, Antibiotic Education, Prescription Opioid Use form. - Follow up: Private Physician; When: 2 - 3 days; Reason: Recheck today's complaints, Continuance of care, Re-evaluation by your physician. Addendum: 09/01/2018 10:26 Co-signature as Attending Physician, Jesse Brian MD. g s Signatures: Dispatcher [facility] EDMS Ivan Ryan PA PA [facility] Braulio Lares RN RN [facility] Brooke Hoyt RN RN [facility] Jesse Brian MD MD gs Corrections: (The following items were deleted from the chart) 08/28 21:33 21:10 08/28/2018 21:10 Discharged to Home. Impression: Acute serous otitis media, left ak1 ear; Acute pharyngitis. Condition is Stable. Forms are Medication Reconciliation Form, Thank You Letter, Antibiotic Education, Prescription Opioid Use. Follow up: Private Physician; When: 2 - 3 days; Reason: Recheck today's complaints, Continuance of care, Re-evaluation by your physician. nola
[2018-08-28] MEDS ORDERED: DEXAMETHASONE 4 MG/ML VIAL ONE (21:31)
== END 2018-08-28 21:33 | disposition home or self-care (01) ==
LOC: ER 19:50
DX: H65.02 Acute serous otitis media, left ear (principal)
CPT/HCPCS: 87070; 87081; 96372; 99283

== ENCOUNTER 2019-02-26 13:35 | Emergency (ER) | payer SELFPAY ==
--- OUTSIDE RECORDS SUMMARY | 2019-02-26 13:39 | XMS REPORT | Continuity of Care Document ---
[...] MG / Codeine PO, Q4H, Active 017 [facility] Phosphate 30 MG PRN Pain, X Oral [...] 0.1 - 1.0 02/11 STOOL Urobilinogen /2016 [place] URINE AND UA Spec Grav 1.016 <=1.030 02/11 STOOL /2016 [place] URINE AND UA Bacteria Occasional None Seen 02/11 [facility] /HPF /HPF /2016 [place] URINE AND UA Mucus Few /LPF None Seen 02/11 [facility]OOL /LPF /2016 [place] URINE AND UA Leuk Est Negative Negative 02/11 [place] (02/11/17 11:23 AM) [place] URINE AND UA RBC null 0 - 2 02/11 [place] URINE AND UA WBC 1 /HPF 0 - 5 02/11 [place] URINE AND UA Sq Epi Occasional Few /LPF 02/11 [facility] /LPF /2016 [place] URINE AND UA Glucose Negative Negative 02/11 [facility] mg/dL mg/dL [place] URINE AND UA Blood Negative Negative 02/11 [place] (02/11/17 11:23 AM) [place] URINE AND UA Bili Negative Negative 02/11 [place] *NA* [place] (02/11/17 11:23 AM) URINE AND UA Ketones Negative Negative 02/11 [facility] mg/dL mg/dL [place] URINE AND UA Nitrite Negative Negative 02/11 [place] (02/11/17 11:23 AM) [place] URINE AND UA Color Yellow Yellow 02/11 [place] *NA* [place] (02/11/17 11:23 AM) URINE AND UA Turbidity Slight Clear 02/11 [place] *ABN* [place] (02/11/17 11:23 AM) URINE AND UA pH 5.0 5.0 - 8.0 02/11 [place] URINE AND UA Protein Negative Negative 02/11 [facility] mg/dL mg/dL [place] URINE CHEM U Preg Negative Negative 02/11 [place] (02/11/17 11:23 AM) [place] CHEM PANEL Lipase Lvl 125 unit/L 73 - 393 02/11 [place] CHEM PANEL eGFR 120 02/11 Result Comment: [...] Lvl 3.5 meq/L 3.5 - 5.1 02/11 [place] CHEM PANEL Sodium Lvl 137 meq/L 135 - 145 02/11 [place] CHEM PANEL Calcium Lvl 9.3 mg/dL 8.5 - 10.5 02/11 [place] CHEM PANEL CO2 29 meq/L 24 - 32 02/11 [place] CHEM PANEL Chloride Lvl 100 meq/L 95 - 109 02/11 [place] CHEM PANEL Glucose Lvl 128 mg/dL 70 - 99 02/11 [place] CHEM PANEL BUN 7 mg/dL 7 - 22 02/11 [place] CHEM PANEL Creatinine 0.73 mg/dL 0.50 - 02/11 Lvl 1.40 [place] CHEM PANEL AGAP 11.5 meq/L 10.0 - 02/11 MH 20.0 [place] HEMATOLOGY RBC 4.55 M/CMM 4.20 - 02/11 MH 5.40 [place] HEMATOLOGY WBC 23.3 K/CMM 3.7 - 10.4 02/11 [place] HEMATOLOGY Hgb 12.9 g/dL 12.0 - 02/11 MH 16.0 [place] HEMATOLOGY MCH 28.5 pg 27.0 - 02/11 MH 31.0 [place] HEMATOLOGY Hct 39.4 % 36.0 - 02/11 MH 48.0 [place] HEMATOLOGY MCV 86.5 fL 80.0 - 02/11 MH 98.0 [place] HEMATOLOGY Platelet 273 K/CMM 133 - 450 02/11 [place] HEMATOLOGY MCHC 32.9 g/dL 32.0 - 02/11 MH 36.0 [place] HEMATOLOGY RDW 13.8 % 11.5 - 02/11 MH 14. [place] HEMATOLOGY MPV 9.6 fL 7.4 - 10.4 02/11 [place] HEMATOLOGY Segs-Bands # 21.4 K/CMM 1.5 - 8.1 02/11 [place] HEMATOLOGY Monocytes # 0.7 K/CMM 0.0 - 0.8 02/11 [place] HEMATOLOGY Segs 80.0 % 45.0 - 02/11 75.0 [place] HEMATOLOGY Lymphocytes # 1.2 K/CMM 1.0 - 5.5 02/11 [place] HEMATOLOGY Bands 12.0 % 0.0 - 11.0 02/11 [place] HEMATOLOGY Lymphocytes 5.0 % 20.0 - 02/11 40.0 [place] HEMATOLOGY Plt Morph Normal 02/11 [facility] (02/11/17 10:09 AM) [facility] HEMATOLOGY Atypical 0.0 % <=0.0 % 02/11 Lymphs [place] HEMATOLOGY Tot Cell Ct 100 02/11 [place] HEMATOLOGY Monocytes 3.0 % 2.0 - 12.0 02/11 [place] HEMATOLOGY Smudge Slight 02/11 [place] HEMATOLOGY Hypochrom 1+ None Seen 02/11 [facility] (02/11/17 10:09 AM) [facility] Neck soft Neck soft CT neck soft tissues with intravenous contrast 02/11/2017 11:12 AM CDT 02/11 - tissue w tissue w - [facility] contrast CT contrast CT [facility] Clinical: Evaluate for abscess, fever, sore throat. [...] 0-2 /HPF None Seen 12/04 [facility] /HPF [place] URINE AND UA Sq Epi Few /LPF Few /LPF 12/04 STOOL [place] URINE AND UA RBC None Seen 0 - 2 12/04 STOOL [place] (12/04/15 7:39 PM) [place] URINE AND UA Bacteria Few /HPF None Seen 12/04 STOOL /HPF [place] URINE AND UA Mucus Few /LPF None Seen 12/04 [facility] /LPF /2015 [place] URINE AND UA Ketones Negative Negative 12/04 [facility] mg/dL mg/dL [place] URINE AND UA Glucose Negative Negative 12/04 [facility] mg/dL mg/dL [place] URINE AND UA Protein Negative Negative 12/04 [facility] mg/dL mg/dL [place] URINE AND UA 0.2 EU/dL 0.1 - 1.0 12/04 STOOL Urobilinogen [place] URINE AND UA Blood Negative Negative 12/04 [...] pH 7.5 5.0 - 8.0 12/04 STOOL [place] URINE AND UA Spec Grav 1.020 <=1.030 12/04 STOOL [place] URINE CHEM U Preg Negative Negative 12/04 [place] (12/04/15 7:39 PM) [place] CHEM PANEL Lipase Lvl 111 unit/L 73 - 393 12/03 [place] CHEM PANEL Globulin 3.8 g/dL 2.0 - 4.0 12/03 [place] CHEM PANEL B/C Ratio 6 6 - 25 12/03 [place] CHEM PANEL AGAP 10.5 meq/L 10.0 - 12/03 MH 20.0 /2015 [place] CHEM PANEL A/G Ratio 1.0 0.7 - 1.6 12/03 [place] CHEM PANEL Glucose Lvl 96 mg/dL 70 - 99 12/03 [place] CHEM PANEL BUN 5 mg/dL 7 - 22 12/03 [place] CHEM PANEL CO2 27 meq/L 24 - 32 12/03 [place] CHEM PANEL Chloride Lvl 107 meq/L 95 - 109 12/03 [place] CHEM PANEL Potassium Lvl 3.5 meq/L 3.5 - 5.1 12/03 [place] CHEM PANEL Sodium Lvl 141 meq/L 135 - 145 12/03 [place] CHEM PANEL Creatinine 0.77 mg/dL 0.50 - 12/03 MH Lvl 1.40 [place] CHEM PANEL AST 76 unit/L 0 - 37 12/03 [place] CHEM PANEL ALT 132 unit/L 0 - 65 12/03 [place] CHEM PANEL Albumin Lvl 3.8 g/dL 3.5 - 5.0 12/03 [place] CHEM PANEL Total Protein 7.6 g/dL 6.4 - 8.4 12/03 [place] CHEM PANEL Calcium Lvl 8.6 mg/dL 8.5 - 10.5 12/03 [place] CHEM PANEL Bili Total 0.7 mg/dL 0.2 - 1.3 12/03 [place] CHEM PANEL Alk Phos 98 unit/L 39 - 136 12/03 [place] CHEM PANEL eGFR 114 12/03 Result Comment: [...] fL 80.0 - 12/03 MH 98.0 /2015 [place] HEMATOLOGY MCH 27.1 pg 27.0 - 12/03 MH 31.0 /2015 [place] HEMATOLOGY Hct 32.5 % 36.0 - 12/03 MH 48.0 /2015 [place] HEMATOLOGY Hgb 10.6 g/dL 12.0 - 12/03 MH 16.0 [place] HEMATOLOGY MPV 9.7 fL 7.4 - 10.4 12/03 [place] HEMATOLOGY RBC 3.93 M/CMM 4.20 - 12/03 MH 5.40 /2015 [place] HEMATOLOGY WBC 4.9 K/CMM 3.7 - 10.4 12/03 [place] HEMATOLOGY Platelet 276 K/CMM 133 - 450 12/03 [place] HEMATOLOGY RDW 14.4 % 11.5 - 12/03 MH 14.5 [place] HEMATOLOGY MCHC 32.8 g/dL 32.0 - 12/03 MH 36.0 /2016 [place] HEMATOLOGY Segs 68.1 % 45.0 - 12/03 MH 75.0 /2015 [place] HEMATOLOGY Segs-Bands # 3.3 K/CMM 1.5 - 8.1 12/03 [place] HEMATOLOGY Basophils 0.8 % 0.0 - 1.0 12/03 [place] HEMATOLOGY Monocytes 16.0 % 2.0 - 12.0 12/03 [place] HEMATOLOGY Eosinophils 0.8 % 0.0 - 4.0 12/03 [place] HEMATOLOGY Lymphocytes 14.3 % 20.0 - 12/03 MH 40.0 2016 [place] HEMATOLOGY Eosinophils # 0.0 K/CMM 0.0 - 0.5 12/03 [place] HEMATOLOGY Monocytes # 0.8 K/CMM 0.0 - 0.8 12/03 [place] HEMATOLOGY Basophils # 0.0 K/CMM 0.0 - 0.2 12/03 [place] HEMATOLOGY Lymphocytes # 0.7 K/CMM 1.0 - 5.5 12/03 [place] Abdomen/Pel Abdomen/Pelvi EXAM: 12/03 - vis w IV s w IV /2015 - [facility] contrast CT contrast CT CT abdomen and pelvis with contrast. [facility] Read by: Roman Watts MD Dictated Date/time: [...] 1view EXAM: 12/03 - DX DX - [facility] Single view chest. [place] Read by: [...] Comments Source Systolic (mm Hg) 116 02/11/2017 [facility] Diastolic (mm Hg) 73 02/11/2017 MH [place] Temperature Oral (F) 100 F 02/11/2017 [place] Respitory Rate 20 02/11/2017 [place] Heart Rate 111 02/11/2017 [place] Heart Rate 134 02/11/2017 [place] Systolic (mm Hg) 139 02/11/2017 [place] Diastolic (mm Hg) 89 02/11/2017 [place] Weight 34.091 02/11/2017 [place] Temperature Oral (F) 100.0 F 02/11/2017 [place] Respitory Rate 20 02/11/2017 [place] Systolic (mm Hg) 127 12/05/2015 [place] Diastolic (mm Hg) 79 12/05/2015 [place] Temperature Oral (F) 98.9 F 12/05/2015 [place] Respitory Rate 18 12/05/2015 [place] Heart Rate 90 12/05/2015 [place] Temperature Oral (F) 99.5 F 12/05/2015 [place] Respitory Rate 18 12/05/2015 [place] Heart Rate 92 12/05/2015 [place] Systolic (mm Hg) 125 12/05/2015 [place] Diastolic (mm Hg) 81 12/05/2015 [place] Weight 70.455 12/04/2015 [place] BMI Calculated 27.51 12/04/2015 [place] Heart Rate 100 12/04/2015 [place] Systolic (mm Hg) 122 12/04/2015 [place] Diastolic (mm Hg) 85 12/04/2015 [place] Height 160.02 cm 12/04/2015 [place] Respitory Rate 18 12/04/2015 [place] Temperature Oral (F) 99.7 F 12/04/2015 [place] Encounters Location Location Encounter Encounter Reason Attending ADM DC Status Source Details Type Number For Provider Date Date Visit [facility] [id number] [place] 12/03 12/04 [facility] [place] [facility]2015 [place] [facility] Emergency [id number] Bro[place] 02/11 02/11 [place] /2016 [place] Procedures Procedure Code Date Perfomer Comments Source Biopsy of liver [id number] [place]
[2019-02-26] MEDS ORDERED: IBUPROFEN 200 MG TAB PO ONE (14:51)
--- NOTE | 2019-02-26 15:04 | RAD REPORT ---
EXAM DESCRIPTION: RAD -Hand Left 3 View - 02/26/2019 2:43 pm CLINICAL HISTORY: Left hand pain FINDINGS: No fracture or dislocation is seen. No bone or joint abnormality
--- NOTE | 2019-02-26 15:50 | ER ---
Nurse's Notes [facility] Name: Edna Jhaveri Age: 23 yrs Sex: Female : 1995 Arrival Date: 02/26/2019 Time: 13:39 Bed 24 Private MD: Diagnosis: Pain in left hand Presentation: 02/26 13:41 Presenting complaint: Patient states: Left hand pain for 2 weeks with unknown injury, aj no swelling noted. Transition of care: patient was not received from another setting of care. Onset of symptoms was February 14, 2019. Risk Assessment: Do you want to hurt yourself or someone else? Patient reports no desire to harm self or others. Initial Sepsis Screen: Does the patient meet any 2 criteria? No. Patient's initial sepsis screen is negative. Does the patient have a suspected source of infection? No. Patient's initial sepsis screen is negative. Care prior to arrival: None. 13:41 Method Of Arrival: Ambulatory 13:41 Acuity: WYATT 4 aj Triage Assessment: 13:42 General: Appears in no apparent distress. comfortable, Behavior is calm, cooperative, aj appropriate for age. Pain: Complains of pain in dorsum of left hand. Neuro: Level of Consciousness is awake, alert, obeys commands, Oriented to person, place, time, situation, Appropriate for age. Respiratory: Airway is patent Respiratory effort is even, unlabored, Respiratory pattern is regular, symmetrical. Musculoskeletal: Reports pain in left hand. 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 - Social history:: Smoking status: Patient/guardian denies using tobacco. - Ebola Screening: : Patient negative for fever greater than or equal to 101.5 degrees Fahrenheit, and additional compatible Ebola Virus Disease symptoms Patient denies exposure to infectious person Patient denies travel to an Ebola-affected area in the 21 days before illness onset No symptoms or risks identified at this time. Screenin:24 Abuse screen: Denies threats or abuse. Denies injuries from another. Nutritional ch screening: No deficits noted. Tuberculosis screening: No symptoms or risk factors identified. Fall Risk None identified. Assessment: 14:24 General: Appears in no apparent distress. comfortable, Behavior is calm, cooperative, ch appropriate for age. Pain: Complains of pain in left hand. 15:29 Reassessment: Patient appears in no apparent distress at this time. Patient and/or ch family updated on plan of care and expected duration. Pain level reassessed. Patient is alert, oriented x 3, equal unlabored respirations, skin warm/dry/pink. Musculoskeletal: Circulation, motion, and sensation intact. Capillary refill < 3 seconds, in bilateral fingers. toes. Range of motion: intact in all extremities, Swelling absent Tenderness present in dorsum of left hand Reports pain in left hand. Vital Signs: 13:42 BP 131 / 70; Pulse 82; Resp 17; Temp 98.7; Pulse Ox 100% on R/A; Weight 81.65 kg; aj Height 5 ft. 2 in. (157.48 cm); 14:24 BP 126 / 68; Pulse 76; Resp 18; Temp 98.; Pulse Ox 99% on R/A; Pain 6/10; ch 13:42 Body Mass Index 32.92 (81.65 kg, 157.48 cm) aj ED Course: 13:39 Patient arrived in ED. ds1 13:42 Triage completed. aj 13:42 Arm band placed on right wrist. Patient placed in an exam room. aj 13:50 Nestor Orr PA is PHCP. cp 13:50 Nestor Sprague MD is Attending Physician. cp 14:24 Rhonda Lentz, BRENNON is Primary Nurse. 14:24 No apparent distress. Resting quietly. ch 14:24 Patient has correct armband on for positive identification. Bed in low position. Call ch light in reach. Side rails up X 1. 14:24 No provider procedures requiring assistance completed. Patient did not have IV access ch during this emergency room visit. 14:38 X-ray completed. Portable x-ray completed in exam room. Patient tolerated procedure sw well. 14:42 XRAY Hand LEFT 3 View In Process Unspecified. EDMS Administered Medications: 14:33 Drug: Motrin 600 mg Route: PO; ch 20:15 Follow up: Response: No adverse reaction Outcome: 15:49 Discharge ordered by . cp 16:19 Patient left the ED. ag Signatures: Dispatcher [employer] Rhonda Colon RN RN ch Myers, Amanda, RN RN aj Sanford, Demi ds1 Sarah Brown Shannon sw Page, Corey, PA PA cp
--- NOTE | 2019-02-26 15:51 | EDPHYS ---
Physician Documentation [facility] Name: Edna Jhaveri Age: 23 yrs Sex: Female : 1995 Arrival Date: 02/26/2019 Time: 13:39 Bed 24 Private MD: ED Physician Nestor Sprague HPI: 02/26 14:25 This 23 yrs old Female presents to ER via Ambulatory with complaints of Hand cp Swelling. 14:25 The patient or guardian reports pain, swelling, tenderness. The complaints affect the cp MCP of left index finger. Context: resulted from an unknown cause. Onset: The symptoms/episode began/occurred 2 week(s) ago. Modifying factors: the symptoms are aggravated by movement. Associated signs and symptoms: Pertinent negatives: cyanosis distally, decreased sensation distally, fever. Severity of symptoms: in the emergency department the symptoms are unchanged, despite home interventions. 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 - Social history:: Smoking status: Patient/guardian denies using tobacco. - Ebola Screening: : Patient negative for fever greater than or equal to 101.5 degrees Fahrenheit, and additional compatible Ebola Virus Disease symptoms Patient denies exposure to infectious person Patient denies travel to an Ebola-affected area in the 21 days before illness onset No symptoms or risks identified at this time. ROS: 14:30 Constitutional: Negative for body aches, chills, fever, poor PO intake. cp 14:30 Eyes: Negative for injury, pain, redness, and discharge. cp 14:30 ENT: Negative for drainage from ear(s), ear pain, sore throat, difficulty swallowing, difficulty handling secretions. 14:30 Cardiovascular: Negative for chest pain, edema, palpitations. 14:30 Respiratory: Negative for cough, shortness of breath, wheezing. 14:30 Abdomen/GI: Negative for abdominal pain, nausea, vomiting, and diarrhea. 14:30 MS/extremity: Positive for pain, swelling, tenderness, of the MCP of left index finger, Negative for injury or acute deformity, decreased range of motion, paresthesias. 14:30 Skin: Negative for cellulitis, rash. 14:30 All other systems are negative. Exam: 14:37 Constitutional: The patient appears in no acute distress, alert, awake, non-toxic, well cp developed, well nourished. 14:37 Head/Face: Normocephalic, atraumatic. cp 14:37 Musculoskeletal/extremity: Extremities: grossly normal except: noted in the MCP of left index finger: pain, swelling, tenderness, There is no evidence of decreased ROM, deformity, ROM: limited active range of motion due to pain, in the MCP of left index finger, Perfusion: the extremity is normally perfused throughout, Sensation intact. 14:37 Skin: cellulitis, is not appreciated, no rash present. Vital Signs: 13:42 BP 131 / 70; Pulse 82; Resp 17; Temp 98.7; Pulse Ox 100% on R/A; Weight 81.65 kg; aj Height 5 ft. 2 in. (157.48 cm); 14:24 BP 126 / 68; Pulse 76; Resp 18; Temp 98.; Pulse Ox 99% on R/A; Pain 6/10; ch 13:42 Body Mass Index 32.92 (81.65 kg, 157.48 cm) aj MDM: 13:50 Patient medically screened. cp 14:45 Differential diagnosis: closed fracture, contusion, tendonitis, cellulitis. cp 15:45 Data reviewed: vital signs, nurses notes, radiologic studies, plain films. cp 15:45 Test interpretation: by ED physician or midlevel provider: plain radiologic studies. cp Counseling: I had a detailed discussion with the patient and/or guardian regarding: the historical points, exam findings, and any diagnostic results supporting the discharge/admit diagnosis, radiology results, the need for outpatient follow up, a family practitioner, to return to the emergency department if symptoms worsen or persist or if there are any questions or concerns that arise at home. Response to treatment: the patient's symptoms have mildly improved after treatment, and as a result, I will discharge patient. 02/26 14:16 Order name: XRAY Hand LEFT 3 View; Complete Time: 15:47 cp 02/26 15:47 Interpretation: Report reviewed. cp 02/26 15:50 Order name: Splint; Complete Time: 16:01 cp Administered Medications: 14:33 Drug: Motrin 600 mg Route: PO; 20:15 Follow up: Response: No adverse reaction Disposition: 02/26/19 15:49 Discharged to Home. Impression: Pain in left hand. - Condition is Stable. - Discharge Instructions: Hand Pain. - Prescriptions for Ibuprofen 800 mg Oral Tablet - take 1 tablet by ORAL route every 8 hours As needed take with food; 30 tablet. - Work release form, Medication Reconciliation Form, Thank You Letter, Antibiotic Education, Prescription Opioid Use form. - Follow up: Private Physician; When: 5 - 6 days; Reason: pain continues. - Problem is new. - Symptoms have improved. Signatures: Dispatcher [employer] EDMS Rhonda Lentz RN RN ch Myers, Amanda, RN RN aj Gallardo, Ana ag Page, Corey, PA PA cp Corrections: (The following items were deleted from the chart) 16:19 15:49 02/26/2019 15:49 Discharged to Home. Impression: Pain in left hand. Condition is ag Stable. Forms are Medication Reconciliation Form, Thank You Letter, Antibiotic Education, Prescription Opioid Use. Follow up: Private Physician; When: 5 - 6 days; Reason: pain continues. Problem is new. Symptoms have improved. 02/27 16:16 02/26 14:48 Data reviewed: vital signs, nurses notes, radiologic studies, plain films, [facility] 02/27 16:16 02/26 14:48 Test interpretation: by ED physician or midlevel provider: plain radiologic cp studies, 02/27 16:16 02/26 14:48 Counseling: I had a detailed discussion with the patient and/or guardian cp regarding: the historical points, exam findings, and any diagnostic results supporting the discharge/admit diagnosis, radiology results, to return to the emergency department if symptoms worsen or persist or if there are any questions or concerns that arise at home, 02/27 16:16 02/26 14:48 Response to treatment: the patient's symptoms have mildly improved after cp treatment, and as a result, I will discharge patient,
== END 2019-02-26 16:19 | disposition home or self-care (01) ==
LOC: ER 13:35
DX: M79.642 Pain in left hand (principal)
CPT/HCPCS: 99283

== ENCOUNTER 2019-05-08 16:46 | Emergency (ER) | payer SELFPAY ==
--- OUTSIDE RECORDS SUMMARY | 2019-05-08 16:50 | XMS REPORT | Continuity of Care Document ---
:1995 Author Organization [facility] Care Team Providers Name Role Phone [facility] Unavailable Unavailable Problems Problem Status Onset Classification Date Comments Source Date Reported Acute 02/14/2017 [facility] pharyngitis, 7 [place] unspecified VOMITING Active [facility] 6 [place] Discharge 12/07/2015 [facility] Diagnosis: 6 [place] Abdominal pain, acute Discharge 12/07/2015 [facility] Diagnosis: 6 [place] Nausea & vomiting Medications Medication Details Route Status Patient Ordering Order Source Instructions Provider Date Acetaminophen 300 1 - 2 tab, No Longer [facility] MG / Codeine PO, Q4H, Active 017 [place] Phosphate 30 MG PRN Pain, X Oral [...] date: 12/04/15 18:24:00 Allergies, Adverse Reactions, Alerts No Known Medication Allergies Immunizations No Data Provided for This Section Results Order Name Results Value Reference Date Interpretation Comments Source Range URINE AND UA <=1.0 mg/dL 0.1 - 1.0 02/11 [facility] Urobilinogen /2016 [facility] URINE AND UA Spec Grav 1.016 <=1.030 02/11 [facility] /2016 [facility] URINE AND UA Bacteria Occasional None Seen 02/11 [facility] /HPF /HPF /2016 [facility] URINE AND UA Mucus Few /LPF None Seen 02/11 [facility] STOOL /LPF /2016 [facility] URINE AND UA Leuk Est Negative Negative 02/11 [facility] (02/11/17 11:23 AM) [facility] URINE AND UA RBC <1 0 - 2 02/11 [facility] URINE AND UA WBC 1 0 - 5 02/11 [facility] URINE AND UA Sq Epi Occasional Few /LPF 02/11 [facility] /LPF /2016 [facility] URINE AND UA Glucose Negative Negative 02/11 [facility] mg/dL mg/dL [facility] URINE AND UA Blood Negative Negative 02/11 [facility] (02/11/17 11:23 AM) [facility] URINE AND UA Bili Negative Negative 02/11 [facility] *NA* /2016 [facility] (02/11/17 11:23 AM) [place] URINE AND UA Ketones Negative Negative 02/11 [facility] mg/dL mg/dL [facility] URINE AND UA Nitrite Negative Negative 02/11 [facility] (02/11/17 11:23 AM) [facility] URINE AND UA Color Yellow Yellow 02/11 [facility] *NA* /2016 [facility] (02/11/17 11:23 AM) [place] URINE AND UA Turbidity Slight Clear 02/11 [facility] *ABN* /2016 [facility] (02/11/17 11:23 AM) [place] URINE AND UA pH 5.0 5.0 - 8.0 02/11 [facility] URINE AND UA Protein Negative Negative 02/11 [facility] mg/dL mg/dL [facility] URINE CHEM U Preg Negative Negative 02/11 (02/11/17 11:23 AM) [facility] CHEM PANEL Lipase Lvl 125 73 - 393 02/11 [facility] CHEM PANEL eGFR 120 02/11 [facility] Comment: The [facility] eGFR is Land calculated using the CKD-EPI formula. In most young, healthy individuals the eGFR will be >90 mL/min/1.73m2 . The eGFR declines with age. An eGFR of 60-89 may be normal in some populations, particularly the elderly, for whom the CKD-EPI formula has not been extensively validated. Use of the eGFR is not recommended in the following populations:< br/>
Racheal viduals with unstable creatinine concentration s, including patients and those with serious co-morbid conditions.<b r/>
Patie nts with extremes in muscle mass or diet.

The data above are obtained from the National Kidney Disease Education Program (NKDEP) which additionally recommends that when the eGFR is used in patients with extremes of body mass index for purposes of drug dosing, the eGFR should be multiplied by the estimated BMI. CHEM PANEL Potassium Lvl 3.5 3.5 - 5.1 02/11 [facility] CHEM PANEL Sodium Lvl 137 135 - 145 02/11 [facility] CHEM PANEL Calcium Lvl 9.3 8.5 - 10.5 02/11 [facility] CHEM PANEL CO2 29 24 - 32 02/11 [facility] CHEM PANEL Chloride Lvl 100 95 - 109 02/11 [facility] CHEM PANEL Glucose Lvl 128 70 - 99 02/11 [facility] CHEM PANEL BUN 7 7 - 22 02/11 [facility] CHEM PANEL Creatinine 0.73 0.50 - 02/11 [facility] Lvl 1.40 [facility] CHEM PANEL AGAP 11.5 10.0 - 02/11 MH 20.0 [facility] HEMATOLOGY RBC 4.55 4.20 - 02/11 MH 5.40 [facility] HEMATOLOGY WBC 23.3 3.7 - 10.4 02/11 [facility] HEMATOLOGY Hgb 12.9 12.0 - 02/11 MH 16.0 [facility] HEMATOLOGY MCH 28.5 27.0 - 02/11 MH 31.0 [facility] HEMATOLOGY Hct 39.4 36.0 - 02/11 MH 48.0 2017 [facility] HEMATOLOGY MCV 86.5 80.0 - 02/11 MH 98.0 2017 [facility] HEMATOLOGY Platelet 273 133 - 450 02/11 [facility] HEMATOLOGY MCHC 32.9 32.0 - 02/11 MH 36.0 [facility] HEMATOLOGY RDW 13.8 11.5 - 02/11 MH 14.5 [facility] HEMATOLOGY MPV 9.6 7.4 - 10.4 02/11 [facility] HEMATOLOGY Segs-Bands # 21.4 1.5 - 8.1 02/11 [facility] HEMATOLOGY Monocytes # 0.7 0.0 - 0.8 02/11 [facility] HEMATOLOGY Segs 80.0 45.0 - 02/11 MH 75.0 [facility] HEMATOLOGY Lymphocytes # 1.2 1.0 - 5.5 02/11 [facility] HEMATOLOGY Bands 12.0 0.0 - 11.0 02/11 [facility] HEMATOLOGY Lymphocytes 5.0 20.0 - 02/11 MH 40.0 [facility] HEMATOLOGY Plt Morph Normal 02/11 (02/11/17 10:09 AM) [facility] HEMATOLOGY Atypical 0.0 <=0.0 % 02/11 Lymphs /2016 [facility] HEMATOLOGY Tot Cell Ct 100 02/11 [facility] HEMATOLOGY Monocytes 3.0 2.0 - 12.0 02/11 [facility] HEMATOLOGY Smudge Slight 02/11 [facility] HEMATOLOGY Hypochrom 1+ None Seen 02/11 (02/11/17 10:09 AM) [facility] URINE AND UA WBC 0-2 /HPF None Seen 12/04 [facility] /HPF /2015 [facility] URINE AND UA Sq Epi Few /LPF Few /LPF 12/04 [facility]OOL /2015 [facility] URINE AND UA RBC None Seen 0 - 2 12/04 [facility] (12/04/15 7:39 PM) [facility] URINE AND UA Bacteria Few /HPF None Seen 12/04 [facility] /HPF [facility] URINE AND UA Mucus Few /LPF None Seen 12/04 [facility] /LPF /2015 [facility] URINE AND UA Ketones Negative Negative 12/04 [facility] mg/dL mg/dL [facility] URINE AND UA Glucose Negative Negative 12/04 [facility] mg/dL mg/dL [facility] URINE AND UA Protein Negative Negative 12/04 [facility] mg/dL mg/dL [facility] URINE AND UA 0.2 0.1 - 1.0 12/04 [facility] Urobilinogen /2015 [facility] URINE AND UA Blood Negative Negative 12/04 [facility] (12/04/15 7:39 PM) [facility] URINE AND UA Leuk Est Negative Negative 12/04 [facility] (12/04/15 7:39 PM) [facility] URINE AND UA Nitrite Negative Negative 12/04 [facility] (12/04/15 7:39 PM) [facility] URINE AND UA Bili Negative Negative 12/04 [facility] *NA* /2015 [facility] (12/04/15 7:39 PM) [place] URINE AND UA Color Yellow Yellow 12/04 [facility] *NA* /2015 [facility] (12/04/15 7:39 PM) [place] URINE AND UA Turbidity Clear Clear 12/04 [facility] (12/04/15 7:39 PM) [facility] URINE AND UA pH 7.5 5.0 - 8.0 12/04 [facility] /2015 [facility] URINE AND UA Spec Grav 1.020 <=1.030 12/04 [facility] /2015 [facility] URINE CHEM U Preg Negative Negative 12/04 (12/04/15 7:39 PM) [facility] CHEM PANEL Lipase Lvl 111 73 - 393 12/03 [facility] CHEM PANEL Globulin 3.8 2.0 - 4.0 12/03 [facility] CHEM PANEL B/C Ratio 6 6 - 25 12/03 [facility] CHEM PANEL AGAP 10.5 10.0 - 12/03 MH 20.0 [facility] CHEM PANEL A/G Ratio 1.0 0.7 - 1.6 12/03 [facility] CHEM PANEL Glucose Lvl 96 70 - 99 12/03 [facility] CHEM PANEL BUN 5 7 - 22 12/03 [facility] CHEM PANEL CO2 27 24 - 32 12/03 [facility] CHEM PANEL Chloride Lvl 107 95 - 109 12/03 [facility] CHEM PANEL Potassium Lvl 3.5 3.5 - 5.1 12/03 [facility] CHEM PANEL Sodium Lvl 141 135 - 145 12/03 [facility] CHEM PANEL Creatinine 0.77 0.50 - 12/03 MH Lvl 1.40 [facility] CHEM PANEL AST 76 0 - 37 12/03 [facility] CHEM PANEL ALT 132 0 - 65 12/03 [facility] CHEM PANEL Albumin Lvl 3.8 3.5 - 5.0 12/03 [facility] CHEM PANEL Total Protein 7.6 6.4 - 8.4 12/03 [facility] CHEM PANEL Calcium Lvl 8.6 8.5 - 10.5 12/03 [facility] CHEM PANEL Bili Total 0.7 0.2 - 1.3 12/03 [facility] CHEM PANEL Alk Phos 98 39 - 136 12/03 [facility] CHEM PANEL eGFR 114 12/03 Result Comment: The [facility] eGFR is Land calculated using the CKD-EPI formula. In most young, healthy individuals the eGFR will be >90 mL/min/1.73m2 . The eGFR declines with age. An eGFR of 60-89 may be normal in some populations, particularly the elderly, for whom the CKD-EPI formula has not been extensively validated. Use of the eGFR is not recommended in the following populations:< br/>
Racheal viduals with unstable creatinine concentration s, including patients and those with serious co-morbid conditions.<b r/>
Patie nts with extremes in muscle mass or diet.

The data above are obtained from the National Kidney Disease Education Program (NKDEP) which additionally recommends that when the eGFR is used in patients with extremes of body mass index for purposes of drug dosing, the eGFR should be multiplied by the estimated BMI. HEMATOLOGY MCV 82.7 80.0 - 12/03 [facility] 98.0 /2015 [facility] HEMATOLOGY MCH 27.1 27.0 - 12/03 MH 31.0 /2015 [facility] HEMATOLOGY Hct 32.5 36.0 - 12/03 MH 48.0 /2015 [facility] HEMATOLOGY Hgb 10.6 12.0 - 12/03 MH 16.0 /2015 [facility] HEMATOLOGY MPV 9.7 7.4 - 10.4 12/03 [facility] HEMATOLOGY RBC 3.93 4.20 - 12/03 MH 5.40 /2015 [facility] HEMATOLOGY WBC 4.9 3.7 - 10.4 12/03 [facility] HEMATOLOGY Platelet 276 133 - 450 12/03 [facility] HEMATOLOGY RDW 14.4 11.5 - 12/03 MH 14.5 /2015 [facility] HEMATOLOGY MCHC 32.8 32.0 - 12/03 MH 36.0 /2016 [facility] HEMATOLOGY Segs 68.1 45.0 - 12/03 MH 75.0 /2016 [facility] HEMATOLOGY Segs-Bands # 3.3 1.5 - 8.1 12/03 [facility] HEMATOLOGY Basophils 0.8 0.0 - 1.0 12/03 [facility] HEMATOLOGY Monocytes 16.0 2.0 - 12.0 12/03 [facility] HEMATOLOGY Eosinophils 0.8 0.0 - 4.0 12/03 [facility] HEMATOLOGY Lymphocytes 14.3 20.0 - 12/03 MH 40.0 /2015 [facility] HEMATOLOGY Eosinophils # 0.0 0.0 - 0.5 12/03 [facility] HEMATOLOGY Monocytes # 0.8 0.0 - 0.8 12/03 [facility] HEMATOLOGY Basophils # 0.0 0.0 - 0.2 12/03 [facility] HEMATOLOGY Lymphocytes # 0.7 1.0 - 5.5 12/03 [facility] Pathology Reports No Data Provided for This Section Diagnostic Reports Report Value Date Source Neck soft tissue w CT neck soft tissues with intravenous contrast 02/11/2017 11 :12 AM CDT 02/11/2017 [facility] contrast CT Clinical: Evaluate for abscess, fever, sore throat. Comparison: No prior exam. Technique: Axial images [...] upper neck adenopathy, likely reactive. Follow-up recommended. Abdomen/Pelvis w IV EXAM: 12/04/[address] [address] abdomen and pelvis with contrast. INDICATION: Abdominal pain, acute. TECHNIQUE: Contiguous axial CT [...] of the abdomen. Normal appendix Chest 1view DX EXAM: 12/04/2015 [facility] Single view chest. INDICATION: Chest pain. COMPARISON: Chest x-ray: None. FINDINGS: Cardiac silhouette: Unremarkable. Elenita: Unremarkable. Lobar consolidation: None. Pleural effusion: None. Pneumothorax: None. Other: None. Bones: Unremarkable. Other: None. IMPRESSION: 1. No acute cardiopulmonary process. Consultation Notes No Data Provided for This Section Discharge Summaries No Data Provided for This Section History and Physicals No Data Provided for This Section Vital Signs Vital Sign Value Date Comments Source Systolic (mm Hg) 116 02/11/2017 [facility] Diastolic (mm Hg) 73 02/11/2017 [facility] Temperature Oral (F) 100 F 02/11/2017 [facility] Respitory Rate 20 02/11/2017 [facility] Heart Rate 111 02/11/2017 [facility] Heart Rate 134 02/11/2017 [facility] Systolic (mm Hg) 139 02/11/2017 [facility] Diastolic (mm Hg) 89 02/11/2017 [facility] Weight 34.091 02/11/2017 [facility] Temperature Oral (F) 100.0 F 02/11/2017 [facility] Respitory Rate 20 02/11/2017 [facility] Systolic (mm Hg) 127 12/05/2015 [facility] Diastolic (mm Hg) 79 12/05/2015 [facility] Temperature Oral (F) 98.9 F 12/05/2015 [facility] Respitory Rate 18 12/05/2015 [facility] Heart Rate 90 12/05/2015 [facility] Temperature Oral (F) 99.5 F 12/05/2015 [facility] Respitory Rate 18 12/05/2015 [facility] Heart Rate 92 12/05/2015 [facility] Systolic (mm Hg) 125 12/05/2015 [facility] Diastolic (mm Hg) 81 12/05/2015 [facility] Weight 70.455 12/04/2015 [facility] BMI Calculated 27.51 12/04/2015 [facility] Heart Rate 100 12/04/2015 [facility] Systolic (mm Hg) 122 12/04/2015 [facility] Diastolic (mm Hg) 85 12/04/2015 [facility] Height 160.02 cm 12/04/2015 [facility] Respitory Rate 18 12/04/2015 [facility] Temperature Oral (F) 99.7 F 12/04/2015 [facility] Encounters Location Location Encounter Encounter Reason Attending ADM DC Status Source Details Type Number For Provider Date Date [facility] [id number] [place] 12/03 12/04 [facility] [id number] [facility] 02/11 [facility] [place] Procedures Procedure Code Date Perfomer Comments Source Biopsy of liver [id number] [facility] Assessment and Plan No Data Provided for This Section Plan of Care No Data Provided for This Section Social History Social History Date Source Social History TypeResponse 02/11/2017 [facility] Smoking Status Never smoker; Ready to change: No; Concerns about tobacco use in household: No ; Exposure to Tobacco Smoke None; Cigarette Smoking Last 365 Days No; Reg Smoking Cessation Counseling No Family History No Data Provided for This Section Advance Directives No Data Provided for This Section Functional Status No Data Provided for This Section
--- NOTE | 2019-05-08 17:59 | ER ---
Nurse's Notes [facility] Name: Edna Jhaveri Age: 23 yrs Sex: Female : 1995 Arrival Date: 05/08/2019 Time: 16:48 Bed 12 Private MD: Diagnosis: Acute pharyngitis Presentation: 05/08 16:55 Presenting complaint: Patient states: Sore throat for one week. Transition of care: la1 patient was not received from another setting of care. Onset of symptoms was May 08, 2019. Risk Assessment: Do you want to hurt yourself or someone else? Patient reports no desire to harm self or others. Initial Sepsis Screen: Does the patient meet any 2 criteria? No. Patient's initial sepsis screen is negative. Does the patient have a suspected source of infection? No. Patient's initial sepsis screen is negative. Care prior to arrival: None. 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 - Social history:: Smoking status: Patient/guardian denies using tobacco. - Ebola Screening: : No symptoms or risks identified at this time. Screenin:57 Abuse screen: Denies threats or abuse. Nutritional screening: No deficits noted. la1 Tuberculosis screening: No symptoms or risk factors identified. Fall Risk None identified. Assessment: 16:57 General: Appears in no apparent distress. Behavior is calm, cooperative. Pain: la1 Complains of pain in throat. Neuro: Level of Consciousness is awake, alert, obeys commands. Cardiovascular: Capillary refill < 3 seconds Patient's skin is warm and dry. Respiratory: Airway is patent Respiratory effort is even, unlabored, Respiratory pattern is regular, symmetrical, Breath sounds are clear bilaterally. GI: No signs and/or symptoms were reported involving the gastrointestinal system. : No signs and/or symptoms were reported regarding the genitourinary system. EENT: Throat is pink has enlarged tonsils. Vital Signs: 16:55 BP 122 / 83; Pulse 95; Resp 16; Temp 97.3; Pulse Ox 98% on R/A; Weight 78.93 kg; Height la1 5 ft. 2 in. (157.48 cm); 16:55 Body Mass Index 31.82 (78.93 kg, 157.48 cm) la1 ED Course: 16:48 Patient arrived in ED. as 16:55 Triage completed. la1 16:55 Mily Hernandez FNP-C is [facility]. kb 16:55 Vicente Hogan MD is Attending Physician. kb 16:56 Arm band placed on right wrist. la1 16:57 Patient has correct armband on for positive identification. la1 16:57 No provider procedures requiring assistance completed. Patient did not have IV access la1 during this emergency room visit. 17:05 Strep Sent. la1 18:06 Braulio Lares, RN is Primary Nurse. la1 Administered Medications: 18:06 Drug: GI Cocktail without - (Maalox Suspension 30 ml, Lidocaine Liquid 2 % 15 la1 ml) Route: PO; 18:06 Follow up: Response: Medication administered at discharge. la1 Outcome: 17:58 Discharge ordered by . kb 18:07 Discharged to home ambulatory. la1 18:07 Condition: stable 18:07 Discharge instructions given to patient, Instructed on discharge instructions, follow up and referral plans. medication usage, Demonstrated understanding of instructions, follow-up care, medications. 18:07 Patient left the ED. la1 Signatures: Mily Hernandez FNP-C FNP-Randee Dailey as Braulio Lares, RN RN la1
--- NOTE | 2019-05-08 17:59 | EDPHYS ---
Physician Documentation [facility] Name: Edna Jhaveri Age: 23 yrs Sex: Female : 1995 Arrival Date: 05/08/2019 Time: 16:48 Bed 12 Private MD: ED Physician Vicente Hogan HPI: 05/08 17:58 This 23 yrs old Female presents to ER via Ambulatory with complaints of Sore kb Throat. 17:58 The patient presents with sore throat. The patient describes throat pain as constant. kb Onset: The symptoms/episode began/occurred 1 week(s) ago. Severity of symptoms: At their worst the symptoms were moderate, in the emergency department the symptoms have improved. Modifying factors: The symptoms are alleviated by nothing, the symptoms are aggravated by swallowing, Patient's oral intake status: good Denies contact with similarly ill indivduals. Associated signs and symptoms: Pertinent positives: cough, earache, Sore throat. The patient has not experienced similar symptoms in the past. The patient has not recently seen a physician. Pt reports she was in [place] and started having sore throat a week ago. STates she took some allergy medication and it got better, but still having pian. 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 - Social history:: Smoking status: Patient/guardian denies using tobacco. - Ebola Screening: : No symptoms or risks identified at this time. ROS: 17:58 Constitutional: Negative for fever, chills, and weight loss, Neck: Negative for injury, kb pain, and swelling, Cardiovascular: Negative for chest pain, palpitations, and edema, Abdomen/GI: Negative for abdominal pain, nausea, vomiting, diarrhea, and constipation, Back: Negative for injury and pain, : Negative for injury, bleeding, discharge, and swelling, MS/Extremity: Negative for injury and deformity, Skin: Negative for injury, rash, and discoloration, Neuro: Negative for headache, weakness, numbness, tingling, and seizure. 17:58 ENT: Positive for ear pain, sore throat. 17:58 Respiratory: Positive for cough, Negative for dyspnea on exertion, hemoptysis, orthopnea, pleurisy, shortness of breath, sputum production, wheezing. Exam: 18:00 Constitutional: This is a well developed, well nourished patient who is awake, alert, kb and in no acute distress. Head/Face: Normocephalic, atraumatic. ENT: Nares patent. No nasal discharge, no septal abnormalities noted. Tympanic membranes are normal and external auditory canals are clear. Oropharynx with no redness, swelling, or masses, exudates, or evidence of obstruction, uvula midline. Mucous membranes moist. Neck: Trachea midline, no thyromegaly or masses palpated, and no cervical lymphadenopathy. Supple, full range of motion without nuchal rigidity, or vertebral point tenderness. No Meningismus. Chest/axilla: Normal chest wall appearance and motion. Nontender with no deformity. No lesions are appreciated. Cardiovascular: Regular rate and rhythm with a normal S1 and S2. No gallops, murmurs, or rubs. Normal PMI, no JVD. No pulse deficits. Respiratory: Lungs have equal breath sounds bilaterally, clear to auscultation and percussion. No rales, rhonchi or wheezes noted. No increased work of breathing, no retractions or nasal flaring. Abdomen/GI: Soft, non-tender, with normal bowel sounds. No distension or tympany. No guarding or rebound. No evidence of tenderness throughout. Skin: Warm, dry with normal turgor. Normal color with no rashes, no lesions, and no evidence of cellulitis. MS/ Extremity: Pulses equal, no cyanosis. Neurovascular intact. Full, normal range of motion. Neuro: Awake and alert, GCS 15, oriented to person, place, time, and situation. Cranial nerves II-XII grossly intact. Motor strength 5/5 in all extremities. Sensory grossly intact. Cerebellar exam normal. Normal gait. Vital Signs: 16:55 BP 122 / 83; Pulse 95; Resp 16; Temp 97.3; Pulse Ox 98% on R/A; Weight 78.93 kg; Height la1 5 ft. 2 in. (157.48 cm); 16:55 Body Mass Index 31.82 (78.93 kg, 157.48 cm) la1 MDM: 17:02 Patient medically screened. kb 17:56 Data reviewed: vital signs, nurses notes. Data interpreted: Pulse oximetry: on room air kb is 98 %. Interpretation: normal. Counseling: I had a detailed discussion with the patient and/or guardian regarding: the historical points, exam findings, and any diagnostic results supporting the discharge/admit diagnosis, lab results, the need for outpatient follow up, a family practitioner, to return to the emergency department if symptoms worsen or persist or if there are any questions or concerns that arise at home. 05/08 16:55 Order name: Strep; Complete Time: 17:17 la1 05/08 17:16 Order name: Throat Culture EDMS Administered Medications: 18:06 Drug: GI Cocktail without - (Maalox Suspension 30 ml, Lidocaine Liquid 2 % 15 la1 ml) Route: PO; 18:06 Follow up: Response: Medication administered at discharge. la1 Disposition: 18:13 Co-signature as Attending Physician, Vicente Hogan MD. rn Disposition: 05/08/19 17:58 Discharged to Home. Impression: Acute pharyngitis. - Condition is Stable. - Discharge Instructions: Pharyngitis, [id number], Sore Throat, [id number]. - Medication Reconciliation Form, Thank You Letter, Antibiotic Education, Prescription Opioid Use form. - Follow up: Emergency Department; When: As needed; Reason: Worsening of condition. Follow up: Private Physician; When: 2 - 3 days; Reason: Recheck today's complaints, Continuance of care, Re-evaluation by your physician. Signatures: Dispatcher [employer] EDDC Mily Hernandez, WET INSPECTOR OPTICAL GLASS-C WET INSPECTOR OPTICAL GLASS-Ckb Vicente Hogan MD MD rn Attema, Lee, RN RN la1 Corrections: (The following items were deleted from the chart) 18:07 17:58 05/08/2019 17:58 Discharged to Home. Impression: Acute pharyngitis. Condition is la1 Stable. Forms are Medication Reconciliation Form, Thank You Letter, Antibiotic Education, Prescription Opioid Use. Follow up: Emergency Department; When: As needed; Reason: Worsening of condition. Follow up: Private Physician; When: 2 - 3 days; Reason: Recheck today's complaints, Continuance of care, Re-evaluation by your physician. kb
[2019-05-08] MEDS ORDERED: MAGNE/ALUM HYDROXD 30 ML UCUP ONE (18:03)
[2019-05-08] MEDS ORDERED: LIDOCAINE VISCOUS 2% SOLN 15 ML UDC ONE (18:03)
== END 2019-05-08 18:07 | disposition home or self-care (01) ==
LOC: ER 16:46
DX: J02.9 Acute pharyngitis, unspecified (principal)
CPT/HCPCS: 87070; 87081; 99283

== ENCOUNTER 2019-09-19 12:32 | Emergency (ER) | payer SELFPAY ==
[2019-09-19] MEDS ORDERED: IBUPROFEN 400 MG TAB ONE (14:18)
[2019-09-19] MEDS ORDERED: ONDANSETRON 4 MG (ODT) TAB ONE (14:18)
[2019-09-19] MEDS ORDERED: dexAMETHasone 4 MG TAB ONE (14:20)
--- NOTE | 2019-09-19 15:06 | ER ---
Nurse's Notes [facility] Name: Edna Jhaveri Age: 24 yrs Sex: Female : 1995 Arrival Date: 09/19/2019 Time: 12:34 Bed 10 Private MD: Diagnosis: Acute pharyngitis Presentation: 09/19 12:41 Presenting complaint: Patient states: bilat ear pain and difficulty swallowing x 3 sr5 days. Vomited x 2 today. Initial Sepsis Screen: Does the patient meet any 2 criteria? HR > 90 bpm. Care prior to arrival: None. 12:41 Acuity: WYATT 3 sr5 Triage Assessment: 12:43 General: Appears ill, Behavior is calm. Pain: Complains of pain in right ear, left ear sr5 and neck. EENT: Reports bilat ear pain and throat pain. Neuro: Level of Consciousness is awake, alert, obeys commands, Oriented to person, place, time, situation. Cardiovascular: Patient's skin is warm and dry. Respiratory: Respiratory effort is even, unlabored, Respiratory pattern is regular, symmetrical. 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 - Social history:: Smoking status: Patient/guardian denies using tobacco. Screenin:49 Abuse screen: Denies threats or abuse. Denies injuries from another. Nutritional ss screening: No deficits noted. Tuberculosis screening: Never had TB. Fall Risk None identified. Assessment: 15:15 Reassessment: Patient appears in no apparent distress at this time. Patient and/or ss family updated on plan of care and expected duration. Pain level reassessed. Patient is alert, oriented x 3, equal unlabored respirations, skin warm/dry/pink. Patient states feeling better. Vital Signs: 12:43 BP 116 / 80; Pulse 114; Resp 18; Temp 100.0(O); Pulse Ox 98% on R/A; Weight 81.65 kg; sr5 Height 5 ft. 2 in. (157.48 cm); 13:28 Temp 103(O); sr5 14:49 Pulse 110; Resp 16; Temp 100.4(O); Pulse Ox 99% on R/A; Pain 4/10; ss 12:43 Body Mass Index 32.92 (81.65 kg, 157.48 cm) sr5 ED Course: 12:34 Patient arrived in ED. as 12:35 Braulio Lares [facility]-C [facility]. la1 12:35 Nestor Sprague MD is Attending Physician. la1 12:42 Triage completed. sr5 12:43 Arm band placed on. sr5 13:46 Juan Hicks, RN is Primary Nurse. ae4 14:49 Patient has correct armband on for positive identification. Bed in low position. Call ss light in reach. 14:49 No provider procedures requiring assistance completed. Patient did not have IV access ss during this emergency room visit. Administered Medications: 14:15 Drug: Zofran 4 mg Route: PO; ss 15:17 Follow up: Response: No adverse reaction ss 14:19 Drug: Motrin 800 mg Route: PO; ss 15:17 Follow up: Response: No adverse reaction; Temperature is decreased ss 14:20 Drug: Decadron 10 mg Route: PO; ss 15:17 Follow up: Response: No adverse reaction ss Outcome: 15:05 Discharge ordered by . la1 15:15 Discharged to home ambulatory. ss 15:15 Condition: good 15:15 Discharge instructions given to patient, friend, Instructed on discharge instructions, follow up and referral plans. medication usage, Demonstrated understanding of instructions, follow-up care, medications. 15:16 Patient left the ED. ss Signatures: Randee Arevalo Shelby, RN RN ss Braulio Lares FNP-C RECORD SEARCHER-Cla1 Terry Mir RN RN sr5 Juan Hicks, BRENNON RN ae4
--- NOTE | 2019-09-19 15:07 | EDPHYS ---
Physician Documentation [facility] Name: Edna Jhaveri Age: 24 yrs Sex: Female : 1995 Arrival Date: 09/19/2019 Time: 12:34 Bed 10 Private MD: ED Physician Nestor Sprague HPI: 09/19 14:29 This 24 yrs old Female presents to ER via Unassigned with complaints of Sore la1 Throat, Fever, Dizziness, Vomiting. 14:29 The patient presents with sore throat. The patient describes throat pain as scratchy. la1 Onset: The symptoms/episode began/occurred 3 day(s) ago. Severity of symptoms: At their worst the symptoms were mild. Modifying factors: The symptoms are alleviated by nothing, the symptoms are aggravated by swallowing, Denies contact with similarly ill indivduals. Associated signs and symptoms: Pertinent positives: flu-like symptoms, Sore throat vomiting. The patient has not experienced similar symptoms in the past. pt reports sore throat for the last 3 days, then LATOYA ear pain, now having nausea and a few episodes of vomiting. Reports that her voice is a little hoarse. 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 - Social history:: Smoking status: Patient/guardian denies using tobacco. ROS: 14:30 Constitutional: Negative for fever, chills, and weight loss, Eyes: Negative for injury, la1 pain, redness, and discharge. 14:30 Back: Negative for injury and pain, : Negative for injury, bleeding, discharge, and swelling, Skin: Negative for injury, rash, and discoloration, Neuro: Negative for headache, weakness, numbness, tingling, and seizure. 14:30 Constitutional: + fever and chills Neck: Negative for injury, pain, and swelling, Cardiovascular: Negative for chest pain, palpitations, and edema, Respiratory: Negative for shortness of breath, cough, wheezing, and pleuritic chest pain. 14:30 ENT: Positive for hoarseness, sore throat. 14:30 Abdomen/GI: Positive for nausea and vomiting. Exam: 14:31 Constitutional: This is a well developed, well nourished patient who is awake, alert, la1 and in no acute distress. Head/Face: Normocephalic, atraumatic. Eyes: Pupils equal round and reactive to light, extra-ocular motions intact. Lids and lashes normal. Conjunctiva and sclera are non-icteric and not injected. Cornea within normal limits. Periorbital areas with no swelling, redness, or edema. 14:31 Chest/axilla: Normal chest wall appearance and motion. Nontender with no deformity. No lesions are appreciated. Cardiovascular: Regular rate and rhythm with a normal S1 and S2. No gallops, murmurs, or rubs. Normal PMI, no JVD. No pulse deficits. Respiratory: Lungs have equal breath sounds bilaterally, clear to auscultation No rales, rhonchi or wheezes noted. No increased work of breathing, no retractions or nasal flaring. Abdomen/GI: Soft, non-tender, with normal bowel sounds. No distension or tympany. No guarding or rebound. mild generalized abd tenderness Back: No spinal tenderness. No costovertebral tenderness. Full range of motion. 14:31 ENT: External ear(s): are unremarkable, Ear canal(s): are normal, TM's: are normal, Nose: is normal, Nasal septum: is midline, Mouth: is normal, Posterior pharynx: Airway: normal, Tonsils: bilaterally enlarged, with erythema, no exudate, no ulcerations, Uvula: normal, midline, peritonsillar mass, is not appreciated. 14:31 Neck: Lymph nodes: lymphadenopathy is appreciated, anterior cervical nodes. Vital Signs: 12:43 BP 116 / 80; Pulse 114; Resp 18; Temp 100.0(O); Pulse Ox 98% on R/A; Weight 81.65 kg; sr5 Height 5 ft. 2 in. (157.48 cm); 13:28 Temp 103(O); sr5 14:49 Pulse 110; Resp 16; Temp 100.4(O); Pulse Ox 99% on R/A; Pain 4/10; ss 12:43 Body Mass Index 32.92 (81.65 kg, 157.48 cm) sr5 MDM: 13:25 Patient medically screened. aris 15:04 Data reviewed: vital signs, nurses notes, lab test result(s), and as a result, I will la1 discharge patient. Data interpreted: Pulse oximetry: on room air is 99 %. Interpretation: normal. Counseling: I had a detailed discussion with the patient and/or guardian regarding: the historical points, exam findings, and any diagnostic results supporting the discharge/admit diagnosis, lab results, the need for outpatient follow up, a family practitioner, to return to the emergency department if symptoms worsen or persist or if there are any questions or concerns that arise at home. Special discussion: Based on the patient's history, exam, and Dx evaluation, there is no indication for emergent intervention or inpatient Tx. It is understood by the patient/guardian that if the Sx's persist or worsen they need to return immediately for re-evaluation. Based on the history and exam findings, there is no indication for further emergent testing or inpatient evaluation. I discussed with the patient/guardian the need to see the primary care provider for further evaluation of the symptoms. 09/19 12:40 Order name: Flu sr5 09/19 12:40 Order name: Strep sr5 09/19 13:12 Order name: Throat Culture EDMS Administered Medications: 14:15 Drug: Zofran 4 mg Route: PO; ss 15:17 Follow up: Response: No adverse reaction ss 14:19 Drug: Motrin 800 mg Route: PO; ss 15:17 Follow up: Response: No adverse reaction; Temperature is decreased ss 14:20 Drug: Decadron 10 mg Route: PO; ss 15:17 Follow up: Response: No adverse reaction Disposition: 19:54 Co-signature as Attending Physician, Nestor Sprague MD I agree with the assessment and [facility] plan of care. Disposition: 09/19/19 15:05 Discharged to Home. Impression: Acute pharyngitis. - Condition is Stable. - Discharge Instructions: Pharyngitis, Sore Throat, [id number]. - Prescriptions for Amoxicillin 500 mg Oral Capsule - take 1 capsule by ORAL route 2 times per day for 10 days; 20 tablet. - Medication Reconciliation Form, Thank You Letter, Antibiotic Education form. - Follow up: Private Physician; When: 2 - 3 days; Reason: Recheck today's complaints, Re-evaluation by your physician. Follow up: Emergency Department; When: As needed; Reason: Trouble breathing, Worsening of condition. Signatures: Dispatcher [employer] Nestor Myers MD MD cha Smirch, Shelby RN RN ss Braulio Lares, FLUX PLANT OPERATOR-C FLUX PLANT OPERATOR-Cla1 Resecker, Terry RN RN sr5 Corrections: (The following items were deleted from the chart) 14:31 14:30 Neck: Negative for injury, pain, and swelling, Cardiovascular: Negative for chest la1 pain, palpitations, and edema, Respiratory: Negative for shortness of breath, cough, wheezing, and pleuritic chest pain, la1 15:16 15:05 09/19/2019 15:05 Discharged to Home. Impression: Acute pharyngitis. Condition is ss Stable. Forms are Medication Reconciliation Form, Thank You Letter, Antibiotic Education, Prescription Opioid Use. Follow up: Private Physician; When: 2 - 3 days; Reason: Recheck today's complaints, Re-evaluation by your physician. Follow up: Emergency Department; When: As needed; Reason: Trouble breathing, Worsening of condition. la1
[2019-09-19 15:22] VITALS: BP 116/80
[2019-09-19 15:24] VITALS: TEMP 100.4; O2SAT 99
== END 2019-09-19 15:16 | disposition home or self-care (01) ==
LOC: ER 12:32
DX: J02.9 Acute pharyngitis, unspecified (principal)
CPT/HCPCS: 87070; 87081; 87804; 99283; J8540

== ENCOUNTER 2019-09-23 12:42 | Emergency (ER) | payer SELFPAY ==
--- NOTE | 2019-09-23 13:59 | ER ---
Nurse's Notes [facility] Name: Edna Jhaveri Age: 24 yrs Sex: Female : 1995 Arrival Date: 09/23/2019 Time: 12:42 Bed 19 Private MD: Diagnosis: Otitis media, unspecified, right ear Presentation: 09/23 12:59 Presenting complaint: Patient states: was seen here a couple of days ago and given meds sv for throat but there is no improvement. c/o right ear pain that started yesterday as well. Transition of care: patient was not received from another setting of care. Onset of symptoms was August 2019. Risk Assessment: Do you want to hurt yourself or someone else? Patient reports no desire to harm self or others. Care prior to arrival: None. 12:59 Method Of Arrival: Ambulatory sv 12:59 Acuity: WYATT 4 sv 13:20 Initial Sepsis Screen: Does the patient meet any 2 criteria? No. Patient's initial sg sepsis screen is negative. Does the patient have a suspected source of infection? No. Patient's initial sepsis screen is negative. Historical: - Allergies: 13:00 No Known Allergies; sv - PMHx: 13:00 fatty liver; sv - PSHx: 13:00 liver biopsy; sv - Immunization history:: Adult Immunizations. - Social history:: Smoking status: Patient/guardian denies using tobacco. - Ebola Screening: : Patient negative for fever greater than or equal to 101.5 degrees Fahrenheit, and additional compatible Ebola Virus Disease symptoms Patient denies exposure to infectious person Patient denies travel to an Ebola-affected area in the 21 days before illness onset No symptoms or risks identified at this time. Screenin:20 Abuse screen: Denies threats or abuse. Denies injuries from another. Nutritional sg screening: No deficits noted. Tuberculosis screening: No symptoms or risk factors identified. Never had TB. Fall Risk None identified. Assessment: 13:20 General: Appears in no apparent distress. well groomed, well developed, well nourished, sg Behavior is calm, cooperative, appropriate for age. Pain: Complains of pain in sore throat ear pain Quality of pain is described as aching. Neuro: Level of Consciousness is awake, alert, obeys commands, Oriented to person, place, time, Speech is normal, Facial symmetry appears normal. Cardiovascular: Patient's skin is warm and dry. Chest pain is denied. Respiratory: Airway is patent Respiratory effort is even, unlabored, Breath sounds are clear. GI: Abdomen is round non-distended, Reports vomiting. : No signs and/or symptoms were reported regarding the genitourinary system. EENT: Nares are clear bilaterally Oral mucosa is moist. Throat is pink Reports pain in left ear when swallowing. Derm: Skin is pink, warm \T\ dry. Musculoskeletal: Circulation, motion, and sensation intact. Range of motion: intact in all extremities. Vital Signs: 13:00 BP 150 / 72; Pulse 83; Resp 16; Temp 97.9; Pulse Ox 100% ; Weight 81.65 kg; Height 5 sv ft. 2 in. (157.48 cm); 14:12 BP 142 / 60; Pulse 77; Resp 16; Pulse Ox 100% on R/A; sg 13:00 Body Mass Index 32.92 (81.65 kg, 157.48 cm) sv ED Course: 12:42 Patient arrived in ED. as 12:58 Mily Hernandez FNP-C is [facility]. kb 12:58 Gonzalez Jin MD is Attending Physician. kb 13:00 Triage completed. sv 13:00 Arm band placed on. sv 13:20 Patient has correct armband on for positive identification. Call light in reach. Side sg rails up X2. Pulse ox on. NIBP on. Warm blanket given. Head of bed elevated. 13:48 Grover Montanez, RN is Primary Nurse. sg 14:00 No provider procedures requiring assistance completed. Patient did not have IV access sg during this emergency room visit. Administered Medications: No medications were administered Outcome: 13:58 Discharge ordered by . kb 14:20 Discharged to home ambulatory, with family. sg 14:20 Condition: good 14:20 Discharge instructions given to patient, Instructed on discharge instructions, follow up and referral plans. medication usage, safety practices, Demonstrated understanding of instructions, follow-up care, medications, Prescriptions given X 1. 14:23 Patient left the ED. sg Signatures: Mily Hernandez FNP-C FNP-Ckb Verde, Stephanie, RN RN Grover Montanez RN RN Randee Arevalo as
--- NOTE | 2019-09-23 13:59 | EDPHYS ---
Physician Documentation [facility] Name: Edna Jhaveri Age: 24 yrs Sex: Female : 1995 Arrival Date: 09/23/2019 Time: 12:42 Bed 19 Private MD: ED Physician Gonzalez Jin HPI: 09/23 13:56 This 24 yrs old Female presents to ER via Ambulatory with complaints of Sore kb Throat, Ear Pain, Vomiting. 13:56 The patient presents with sore throat. The patient describes throat pain as constant. kb Onset: The symptoms/episode began/occurred 1 week(s) ago. Severity of symptoms: At their worst the symptoms were moderate, in the emergency department the symptoms are unchanged. Modifying factors: The symptoms are alleviated by nothing, the symptoms are aggravated by swallowing. Associated signs and symptoms: Pertinent positives: earache, Sore throat. The patient has not experienced similar symptoms in the past. The patient has not recently seen a physician. Pt reports sore throat and right ear pain. States she has been on amoxicillin and it took her fever away, but her throat still hurts and now her right ear is painful and feels full. Historical: - Allergies: 13:00 No Known Allergies; sv - PMHx: 13:00 fatty liver; sv - PSHx: 13:00 liver biopsy; sv - Immunization history:: Adult Immunizations. - Social history:: Smoking status: Patient/guardian denies using tobacco. - Ebola Screening: : Patient negative for fever greater than or equal to 101.5 degrees Fahrenheit, and additional compatible Ebola Virus Disease symptoms Patient denies exposure to infectious person Patient denies travel to an Ebola-affected area in the 21 days before illness onset No symptoms or risks identified at this time. ROS: 13:56 Constitutional: Negative for fever, chills, and weight loss, Neck: Negative for injury, kb pain, and swelling, Cardiovascular: Negative for chest pain, palpitations, and edema, Respiratory: Negative for shortness of breath, cough, wheezing, and pleuritic chest pain, Abdomen/GI: Negative for abdominal pain, nausea, vomiting, diarrhea, and constipation, MS/Extremity: Negative for injury and deformity, Skin: Negative for injury, rash, and discoloration, Neuro: Negative for headache, weakness, numbness, tingling, and seizure. 13:56 ENT: Positive for ear pain, sore throat. Exam: 13:55 Constitutional: This is a well developed, well nourished patient who is awake, alert, kb and in no acute distress. Head/Face: Normocephalic, atraumatic. Neck: Trachea midline, no thyromegaly or masses palpated, and no cervical lymphadenopathy. Supple, full range of motion without nuchal rigidity, or vertebral point tenderness. No Meningismus. Chest/axilla: Normal chest wall appearance and motion. Nontender with no deformity. No lesions are appreciated. Cardiovascular: Regular rate and rhythm with a normal S1 and S2. No gallops, murmurs, or rubs. Normal PMI, no JVD. No pulse deficits. Respiratory: Lungs have equal breath sounds bilaterally, clear to auscultation and percussion. No rales, rhonchi or wheezes noted. No increased work of breathing, no retractions or nasal flaring. Abdomen/GI: Soft, non-tender, with normal bowel sounds. No distension or tympany. No guarding or rebound. No evidence of tenderness throughout. Back: No spinal tenderness. No costovertebral tenderness. Full range of motion. Skin: Warm, dry with normal turgor. Normal color with no rashes, no lesions, and no evidence of cellulitis. MS/ Extremity: Pulses equal, no cyanosis. Neurovascular intact. Full, normal range of motion. Neuro: Awake and alert, GCS 15, oriented to person, place, time, and situation. Cranial nerves II-XII grossly intact. Motor strength 5/5 in all extremities. Sensory grossly intact. Cerebellar exam normal. Normal gait. 13:55 ENT: External ear(s): are unremarkable, Ear canal(s): are normal, TM's: bulging, on the right, erythema, that is moderate, on the right, fluid levels, on the right, Nose: is normal, Mouth: is normal, Posterior pharynx: Airway: normal, no evidence of obstruction, Tonsils: bilaterally enlarged, Uvula: normal, midline, swelling, that is mild, erythema, is not appreciated. Vital Signs: 13:00 BP 150 / 72; Pulse 83; Resp 16; Temp 97.9; Pulse Ox 100% ; Weight 81.65 kg; Height 5 sv ft. 2 in. (157.48 cm); 14:12 BP 142 / 60; Pulse 77; Resp 16; Pulse Ox 100% on R/A; sg 13:00 Body Mass Index 32.92 (81.65 kg, 157.48 cm) sv MDM: 13:28 Patient medically screened. kb 13:55 Data reviewed: vital signs, nurses notes. Data interpreted: Pulse oximetry: on room air kb is 100 %. Interpretation: normal. Counseling: I had a detailed discussion with the patient and/or guardian regarding: the historical points, exam findings, and any diagnostic results supporting the discharge/admit diagnosis, the need for outpatient follow up, a family practitioner, to return to the emergency department if symptoms worsen or persist or if there are any questions or concerns that arise at home. Administered Medications: No medications were administered Disposition: 17:44 Co-signature as Attending Physician, Gonzalez Jin MD. ma2 Disposition: 09/23/19 13:58 Discharged to Home. Impression: Otitis media, unspecified, right ear. - Condition is Stable. - Discharge Instructions: Otitis Media, Adult, [id number]. - Prescriptions for Amoxicillin 875 mg Oral Tablet - take 1 tablet by ORAL route every 12 hours for 10 days; 20 tablet. - Medication Reconciliation Form, Thank You Letter, Antibiotic Education, Prescription Opioid Use, Work release form form. - Follow up: Emergency Department; When: As needed; Reason: Worsening of condition. Follow up: Private Physician; When: 2 - 3 days; Reason: Recheck today's complaints, Continuance of care, Re-evaluation by your physician. Signatures: Dispatcher [employer] Mily Reddy FNP-C FNP-Corie Morrison RN Grover Raygoza RN RN sg Alzahri, Mohammad, MD MD ma2 Corrections: (The following items were deleted from the chart) 14:23 13:58 09/23/2019 13:58 Discharged to Home. Impression: Otitis media, unspecified, right sg ear. Condition is Stable. Forms are Medication Reconciliation Form, Thank You Letter, Antibiotic Education, Prescription Opioid Use. Follow up: Emergency Department; When: As needed; Reason: Worsening of condition. Follow up: Private Physician; When: 2 - 3 days; Reason: Recheck today's complaints, Continuance of care, Re-evaluation by your physician. kb
[2019-09-23 14:28] VITALS: BP 150/72; TEMP 97.9; O2SAT 100
== END 2019-09-23 14:23 | disposition home or self-care (01) ==
LOC: ER 12:42
DX: H66.91 Otitis media, unspecified, right ear (principal)
CPT/HCPCS: 99283

== ENCOUNTER 2019-11-07 12:02 | Emergency (ER) | payer SELFPAY ==
--- NOTE | 2019-11-07 12:49 | ER ---
Nurse's Notes [facility] Name: Edna Jhaveri Age: 24 yrs Sex: Female : 1995 Arrival Date: 11/07/2019 Time: 12:05 Bed 15 Private MD: Diagnosis: Diseases of Bartholin's gland Presentation: 11/07 12:20 Presenting complaint: Patient states: vaginal pain and swelling x 3-4 days. Denies ss discharge. Pt thought it was a yeast infection, so she tried Monistat, which seemed to make it worse. Transition of care: patient was not received from another setting of care. Onset of symptoms was November 04, 2019. Risk Assessment: Do you want to hurt yourself or someone else? Patient reports no desire to harm self or others. Initial Sepsis Screen: Does the patient meet any 2 criteria? No. Patient's initial sepsis screen is negative. Does the patient have a suspected source of infection? No. Patient's initial sepsis screen is negative. Care prior to arrival: None. 12:20 Method Of Arrival: Ambulatory ss 12:20 Acuity: WYATT 4 ss Historical: - Allergies: 12:28 No Known Allergies; ss - Home Meds: 12:28 None [Active]; ss - PMHx: 12:28 fatty liver; ss - PSHx: 12:28 liver biopsy; ss - Immunization history:: Adult Immunizations up to date. - Coronavirus screen:: The patient has NOT traveled to [place] in the past 14 days. Proceed with normal triage process as indicated. - Social history:: Smoking status: Patient denies any tobacco usage or history of. - Ebola Screening: : Patient denies exposure to infectious person Patient denies travel to an Ebola-affected area in the 21 days before illness onset. Screenin:45 Abuse screen: Denies threats or abuse. Denies injuries from another. Nutritional aj1 screening: No deficits noted. Tuberculosis screening: No symptoms or risk factors identified. 13:06 Fall Risk None identified. aj1 Assessment: 12:45 General: Appears in no apparent distress. uncomfortable, Behavior is calm, cooperative, aj1 appropriate for age. Pain: Complains of pain in right labia minora. Neuro: Level of Consciousness is awake, alert, obeys commands, Oriented to person, place, time, situation. Cardiovascular: Patient's skin is warm and dry. Respiratory: Airway is patent Respiratory effort is even, unlabored, Respiratory pattern is regular, symmetrical. GI: No signs and/or symptoms were reported involving the gastrointestinal system. : Reports vaginal pain. EENT: No signs and/or symptoms were reported regarding the EENT system. Derm: No signs and/or symptoms reported regarding the dermatologic system. Skin is pink, warm \T\ dry. normal. Musculoskeletal: No signs and/or symptoms reported regarding the musculoskeletal system. Circulation, motion, and sensation intact. Vital Signs: 12:28 BP 133 / 96; Pulse 90; Resp 14; Temp 98.7(O); Pulse Ox 100% on R/A; Weight 83.91 kg; Height 5 ft. 2 in. (157.48 cm); Pain 2/10; 12:28 Body Mass Index 33.84 (83.91 kg, 157.48 cm) ED Course: 12:05 Patient arrived in ED. rg4 12:26 [facility] jr8 12:26 Nestor Sprague MD is Attending Physician. jr8 12:27 Triage completed. 12:28 Arm band placed on right wrist. 12:44 Joelle Lott, RN is Primary Nurse. aj1 12:44 Assist provider with pelvic exam: Performed by Dannie SAWYER Patient tolerated well. aj1 12:45 Patient has correct armband on for positive identification. aj1 13:06 Patient did not have IV access during this emergency room visit. aj1 Administered Medications: No medications were administered Outcome: 12:47 Discharge ordered by . jr8 13:06 Discharged to home ambulatory. aj1 13:06 Condition: good 13:06 Discharge instructions given to patient, Instructed on discharge instructions, follow up and referral plans. medication usage, Demonstrated understanding of instructions, follow-up care, medications, Prescriptions given X 1. 13:06 Patient left the ED. aj1 Signatures: Joelle Lott RN RN aj1 Catherine Dumont RN RN Dannie Rios PA PA jr8 Linsey Astudillo rg4
--- NOTE | 2019-11-07 12:49 | EDPHYS ---
Physician Documentation [facility] Name: Edna Jhaveri Age: 24 yrs Sex: Female : 1995 Arrival Date: 11/07/2019 Time: 12:05 Bed 15 Private MD: ED Physician Nestor Sprague HPI: 11/07 12:57 This 24 yrs old Female presents to ER via Ambulatory with complaints of jr8 Vaginal Pain. 12:57 Onset: The symptoms/episode began/occurred acutely, 3 day(s) ago. Modifying factors: jr8 The symptoms are alleviated by nothing, the symptoms are aggravated by movement. Associated signs and symptoms: The patient has no apparent associated signs or symptoms. Severity of symptoms: At their worst the symptoms were mild, in the emergency department the symptoms are unchanged. The patient has not experienced similar symptoms in the past. The patient has not recently seen a physician. Stated that she started to feel irritation to right labial region. Had tried monostat but without relief . Historical: - Allergies: 12:28 No Known Allergies; ss - Home Meds: 12:28 None [Active]; ss - PMHx: 12:28 fatty liver; ss - PSHx: 12:28 liver biopsy; ss - Immunization history:: Adult Immunizations up to date. - Coronavirus screen:: The patient has NOT traveled to [place] in the past 14 days. Proceed with normal triage process as indicated. - Social history:: Smoking status: Patient denies any tobacco usage or history of. - Ebola Screening: : Patient denies exposure to infectious person Patient denies travel to an Ebola-affected area in the 21 days before illness onset. ROS: 12:57 Eyes: Negative for injury, pain, redness, and discharge, ENT: Negative for injury, jr8 pain, and discharge, Neck: Negative for injury, pain, and swelling, Cardiovascular: Negative for chest pain, palpitations, and edema, Respiratory: Negative for shortness of breath, cough, wheezing, and pleuritic chest pain, Abdomen/GI: Negative for abdominal pain, nausea, vomiting, diarrhea, and constipation, Back: Negative for injury and pain, MS/Extremity: Negative for injury and deformity, Skin: Negative for injury, rash, and discoloration, Neuro: Negative for headache, weakness, numbness, tingling, and seizure. 12:57 : Positive for vaginal pain, Negative for urinary symptoms, pelvic pain, flank pain, burning with urination, vaginal bleeding, vaginal discharge, vaginal itching. Exam: 12:57 Constitutional: This is a well developed, well nourished patient who is awake, alert, jr8 and in no acute distress. Cardiovascular: Regular rate and rhythm with a normal S1 and S2. No gallops, murmurs, or rubs. Normal PMI, no JVD. No pulse deficits. Respiratory: Lungs have equal breath sounds bilaterally, clear to auscultation and percussion. No rales, rhonchi or wheezes noted. No increased work of breathing, no retractions or nasal flaring. Abdomen/GI: Soft, non-tender, with normal bowel sounds. No distension or tympany. No guarding or rebound. No evidence of tenderness throughout. Back: No spinal tenderness. No costovertebral tenderness. Full range of motion. Skin: Warm, dry with normal turgor. Normal color with no rashes, no lesions, and no evidence of cellulitis. MS/ Extremity: Pulses equal, no cyanosis. Neurovascular intact. Full, normal range of motion. Neuro: Awake and alert, GCS 15, oriented to person, place, time, and situation. Cranial nerves II-XII grossly intact. Motor strength 5/5 in all extremities. Sensory grossly intact. Cerebellar exam normal. Normal gait. 12:57 : Pelvic Exam: External exam: mild swelling and erythema to right inner labial fold without fluctuance or defined abscess. Rest of external exam unremarkable , discharge, is not appreciated, the nurse was present for the exam. Vital Signs: 12:28 BP 133 / 96; Pulse 90; Resp 14; Temp 98.7(O); Pulse Ox 100% on R/A; Weight 83.91 kg; ss Height 5 ft. 2 in. (157.48 cm); Pain 2/10; 12:28 Body Mass Index 33.84 (83.91 kg, 157.48 cm) ss MDM: 12:27 Patient medically screened. jr8 12:45 Data reviewed: vital signs, nurses notes, and as a result, I will discharge patient. jr8 Data interpreted: Pulse oximetry: on room air is 100 %. Interpretation: normal. Counseling: I had a detailed discussion with the patient and/or guardian regarding: the historical points, exam findings, and any diagnostic results supporting the discharge/admit diagnosis, the need for outpatient follow up, an OB/Gyne specialist, to return to the emergency department if symptoms worsen or persist or if there are any questions or concerns that arise at home. Administered Medications: No medications were administered Disposition: 11/07/19 12:47 Discharged to Home. Impression: Diseases of Bartholin's gland. - Condition is Stable. - Discharge Instructions: Bartholin Cyst or Abscess. - Prescriptions for Clindamycin HCl 300 mg Oral Capsule - take 1 capsule by ORAL route every 6 hours for 10 days; 40 capsule. - Work release form, Medication Reconciliation Form, Thank You Letter, Antibiotic Education, Prescription Opioid Use form. - Follow up: Private Physician; When: 5 - 6 days; Reason: Recheck today's complaints, Continuance of care, Re-evaluation by your physician. - Problem is new. - Symptoms have improved. Addendum: 11/09/2019 07:58 Co-signature as Attending Physician, Nestor Sprague MD I agree with the assessment and c rodriguez plan of care. Signatures: Joelle Lott RN RN aj1 Nestor Sprague MD MD cha Smirch, Shelby, RN RN Dannie Rios PA PA jr8 Corrections: (The following items were deleted from the chart) 11/07 13:06 12:47 11/07/2019 12:47 Discharged to Home. Impression: Diseases of Bartholin's gland. aj1 Condition is Stable. Forms are Medication Reconciliation Form, Thank You Letter, Antibiotic Education, Prescription Opioid Use. Follow up: Private Physician; When: 5 - 6 days; Reason: Recheck today's complaints, Continuance of care, Re-evaluation by your physician. Problem is new. Symptoms have improved. jr8
== END 2019-11-07 13:06 | disposition home or self-care (01) ==
LOC: ER 12:02
DX: N75.9 Disease of Bartholin's gland, unspecified (principal)
CPT/HCPCS: 99283

== ENCOUNTER 2021-04-21 15:07 | Emergency (ER) | payer OTHER, SELFPAY ==
[2021-04-21 17:25] LABS: Absolute Lymphocytes (CBC) 2.1 K/uL (0.7-4.9); Basophils % 0.7 % (0-1.3); Hematocrit 41.1 % (36.0-45.0); Lymphocytes % 17.4 % (15.3-44.8); MPV 8.8 fL (7.6-11.3); RBC Red Blood Cell Count 4.71 M/uL (3.86-4.86)
[2021-04-21 17:44] LABS: BUN Blood Urea Nitrogen 9 mg/dL (7-18); Bicarbonate 26 mmol/L (21-32); Glucose Level 110 mg/dL (74-106); Potassium 3.9 mmol/L (3.5-5.1); Sodium Level 138 mmol/L (136-145)
[2021-04-21 17:45] LABS: Urine Blood Negative (Negative); Urine Glucose Negative (Negative); Urine Protein Negative (Negative)
[2021-04-21] MEDS ORDERED: ONDANSETRON 4 MG/2 ML VIAL ONE (17:49)
[2021-04-21] MEDS ORDERED: NA CHLORIDE 0.9% 1,000 ML ONE (17:49)
[2021-04-21] MEDS ORDERED: KETOROLAC 30 MG/ML INJ ONE (17:49)
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
[2021-04-21 19:17] VITALS: BP 124/98; TEMP 97.9; O2SAT 99
== END 2021-04-21 19:11 | disposition home or self-care (01) ==
LOC: ER 15:07
DX: S29.011A Strain of muscle and tendon of front wall of thorax, initial encounter (principal); S30.1XXA Contusion of abdominal wall, initial encounter; S80.11XA Contusion of right lower leg, initial encounter; N39.0 Urinary tract infection, site not specified; M25.562 Pain in left knee; V89.2XXA Person injured in unspecified motor-vehicle accident, traffic, initial encounter; K76.0 Fatty (change of) liver, not elsewhere classified
CPT/HCPCS: 96361; 85025; 80048; 36415; 86900; 86850; 81025; 86901; 81003; 70450; 72125; 71260; 74177; 73562; 73590; 96375; 96374; 99284; Q9967; J7030; J2405

== ENCOUNTER 2022-01-04 09:54 | Emergency (ER) | payer SELFPAY ==
--- NOTE | 2022-01-04 10:54 | ER ---
Nurse's Notes [facility] Name: Edna Jhaveri Age: 26 yrs Sex: Female : 1995 Arrival Date: 01/04/2022 Time: 09:57 Bed 12 Private MD: Diagnosis: Acute pharyngitis, unspecified;Fever, unspecified Presentation: 01/04 10:00 Chief complaint: Patient states: Body aches, fever, sore throat started Saturday. Fever ll1 101.6 at home. + N/V. Coronavirus screen: Vaccine status: Patient reports receiving the 2nd dose of the covid vaccine. Client denies travel out of the [place] in the last 14 days. fatigue, fever, headache, nausea, sore throat, vomiting. Client presents with at least one sign or symptom that may indicate coronavirus-19. Standard/surgical mask placed on the client. Ebola Screen: Patient denies travel to an Ebola-affected area in the 21 days before illness onset. Risk Assessment: Do you want to hurt yourself or someone else? Patient reports no desire to harm self or others. Onset of symptoms was January 02, 2022. 10:00 Method Of Arrival: Ambulatory ll1 10:00 Acuity: WYATT 4 ll1 10:00 Initial Sepsis Screen: Does the patient meet any 2 criteria? No. Patient's initial ss sepsis screen is negative. Does the patient have a suspected source of infection? No. Patient's initial sepsis screen is negative. 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 - Social history:: Smoking status: Patient denies any tobacco usage or history of. - Family history:: not pertinent. Screenin:07 Abuse screen: Denies threats or abuse. Denies injuries from another. Nutritional ss screening: No deficits noted. Tuberculosis screening: Never had TB. Fall Risk None identified. Assessment: 10:02 General: Appears uncomfortable, Behavior is calm, cooperative. Pain: Complains of pain ss in throat Pain currently is 8 out of 10 on a pain scale. Is continuous. Neuro: Level of Consciousness is awake, alert, obeys commands, Oriented to person, place, time, situation. Cardiovascular: Capillary refill < 3 seconds is brisk in bilateral fingers Patient's skin is warm and dry. Respiratory: Airway is patent Respiratory effort is even, unlabored, Respiratory pattern is regular, symmetrical. EENT: Oral mucosa is moist. Throat is clear. Derm: Skin is intact, is healthy with good turgor, Skin is dry, Skin is pink, warm \T\ dry. normal. 11:07 Reassessment: Patient appears in no apparent distress at this time. Patient and/or ss family updated on plan of care and expected duration. Pain level reassessed. Patient is alert, oriented x 3, equal unlabored respirations, skin warm/dry/pink. Vital Signs: 10:00 BP 132 / 96; Pulse 107; Resp 17; Temp 97.7; Pulse Ox 100% ; Height 5 ft. 2 in. (157.48 ll1 cm); Pain 5/10; ED Course: 09:57 Patient arrived in ED. mr 10:01 Triage completed. ll1 10:01 Arm band placed on right wrist. ll1 10:08 Nestor Sprague MD is Attending Physician. aris 10:55 Catherine Dumont, BRENNON is Primary Nurse. 11:07 Patient has correct armband on for positive identification. Bed in low position. Call ss light in reach. 11:07 No provider procedures requiring assistance completed. Patient did not have IV access ss during this emergency room visit. Administered Medications: 11:04 Drug: Augmentin (Amoxicillin-Clavulanate) 875 mg Route: PO; ss 11:05 Follow up: Response: Medication administered at discharge. Outcome: 10:54 Discharge ordered by . [facility] 11:07 Discharged to home ambulatory. 11:07 Condition: good 11:07 Discharge instructions given to patient, family, Instructed on discharge instructions, follow up and referral plans. medication usage, Demonstrated understanding of instructions, follow-up care, medications, Prescriptions given X 3. 11:08 Patient left the ED. Signatures: Nestor Sprague MD MD cha Rivera, Mary mr Catherine Dumont, BRENNON RN Tessa Capps RN RN ll1
--- NOTE | 2022-01-04 10:55 | EDPHYS ---
Physician Documentation [facility] Name: Edna Jhaveri Age: 26 yrs Sex: Female : 1995 Arrival Date: 01/04/2022 Time: 09:57 Bed 12 Private MD: ED Physician Nestor Sprague HPI: 01/04 10:50 This 26 yrs old Female presents to ER via Ambulatory with complaints of Sore aris Throat. 10:50 The patient presents with sore throat. The patient describes throat pain as constant, aris scratchy. Onset: The symptoms/episode began/occurred 1 day(s) ago. Severity of symptoms: At their worst the symptoms were mild, moderate, in the emergency department the symptoms are unchanged. Modifying factors: The symptoms are alleviated by fluids, the symptoms are aggravated by swallowing. Associated signs and symptoms: Pertinent positives: fever, Sore throat. The patient has not experienced similar symptoms in the past. 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 - Social history:: Smoking status: Patient denies any tobacco usage or history of. - Family history:: not pertinent. ROS: 10:50 Constitutional: Negative for fever, chills, and weight loss, Eyes: Negative for injury, aris pain, redness, and discharge, Neck: Negative for injury, pain, and swelling, Cardiovascular: Negative for chest pain, palpitations, and edema, Respiratory: Negative for shortness of breath, cough, wheezing, and pleuritic chest pain, Abdomen/GI: Negative for abdominal pain, nausea, vomiting, diarrhea, and constipation, Back: Negative for injury and pain, : Negative for injury, bleeding, discharge, and swelling, MS/Extremity: Negative for injury and deformity, Skin: Negative for injury, rash, and discoloration, Neuro: Negative for headache, weakness, numbness, tingling, and seizure, Psych: Negative for depression, anxiety, suicide ideation, homicidal ideation, and hallucinations, Allergy/Immunology: Negative for hives, rash, and allergies, Endocrine: Negative for neck swelling, polydipsia, polyuria, polyphagia, and marked weight changes. 10:50 Constitutional: Positive for fever. 10:50 ENT: Positive for sore throat. Exam: 10:50 Constitutional: This is a well developed, well nourished patient who is awake, alert, aris and in no acute distress. Head/Face: Normocephalic, atraumatic. Eyes: Pupils equal round and reactive to light, extra-ocular motions intact. Lids and lashes normal. Conjunctiva and sclera are non-icteric and not injected. Cornea within normal limits. Periorbital areas with no swelling, redness, or edema. Neck: Trachea midline, no thyromegaly or masses palpated, and no cervical lymphadenopathy. Supple, full range of motion without nuchal rigidity, or vertebral point tenderness. No Meningismus. Chest/axilla: Normal chest wall appearance and motion. Nontender with no deformity. No lesions are appreciated. Cardiovascular: Regular rate and rhythm with a normal S1 and S2. No gallops, murmurs, or rubs. Normal PMI, no JVD. No pulse deficits. Respiratory: Lungs have equal breath sounds bilaterally, clear to auscultation and percussion. No rales, rhonchi or wheezes noted. No increased work of breathing, no retractions or nasal flaring. Abdomen/GI: Soft, non-tender, with normal bowel sounds. No distension or tympany. No guarding or rebound. No evidence of tenderness throughout. Back: No spinal tenderness. No costovertebral tenderness. Full range of motion. Skin: Warm, dry with normal turgor. Normal color with no rashes, no lesions, and no evidence of cellulitis. MS/ Extremity: Pulses equal, no cyanosis. Neurovascular intact. Full, normal range of motion. Neuro: Awake and alert, GCS 15, oriented to person, place, time, and situation. Cranial nerves II-XII grossly intact. Motor strength 5/5 in all extremities. Sensory grossly intact. Cerebellar exam normal. Normal gait. Psych: Awake, alert, with orientation to person, place and time. Behavior, mood, and affect are within normal limits. 10:50 ENT: Posterior pharynx: Tonsils: with erythema, Uvula: normal, midline, swelling, that is mild, erythema, that is mild. Vital Signs: 10:00 BP 132 / 96; Pulse 107; Resp 17; Temp 97.7; Pulse Ox 100% ; Height 5 ft. 2 in. (157.48 ll1 cm); Pain 5/10; MDM: 10:08 Patient medically screened. [facility] 10:52 Differential diagnosis: influenza, laryngitis, mononucleosis, pharyngitis, tonsillitis, aris upper respiratory infection, uvulitis, viral syndrome. Data reviewed: vital signs, nurses notes, lab test result(s). Data interpreted: Pulse oximetry: on room air is 100 %. Test interpretation: by ED physician or midlevel provider:. Counseling: I had a detailed discussion with the patient and/or guardian regarding: the historical points, exam findings, and any diagnostic results supporting the discharge/admit diagnosis, lab results, radiology results, the need for outpatient follow up, for definitive care, a family practitioner. 01/04 10:09 Order name: Strep ss Administered Medications: 11:04 Drug: Augmentin (Amoxicillin-Clavulanate) 875 mg Route: PO; ss 11:05 Follow up: Response: Medication administered at discharge. ss Disposition Summary: 01/04/22 10:54 Discharge Ordered Location: Home aris Problem: new aris Symptoms: have improved rais Condition: Stable aris Diagnosis - Acute pharyngitis, unspecified aris - Fever, unspecified aris Followup: aris - With: Private Physician - When: 2 - 3 days - Reason: Recheck today's complaints, Continuance of care, Re-evaluation by your physician Discharge Instructions: - Discharge Summary Sheet aris - Fever, Adult aris - Pharyngitis aris - Sore Throat aris - Upper Respiratory Infection, Adult aris - Sore Throat, [id number] aris Forms: - Medication Reconciliation Form aris - Thank You Letter aris - Antibiotic Education aris - Prescription Opioid Use [facility] Prescriptions: - Augmentin 875-125 mg Oral Tablet - take 1 tablet by ORAL route every 12 hours for 7 days; 14 tablet; Refills: 0, [facility] Product Selection Permitted - Brie-D 12 Hour 60-120 mg Oral Tablet Sustained Release 12 hr - take 1 tablet by ORAL route every 12 hours As needed; 20 tablet; Refills: 0, [facility] Product Selection Permitted - Medrol (Chris) 4 mg Oral Tablets, Dose Pack - take 1 tablet by ORAL route as directed - follow package instructions; 1 aris packet; Refills: 0, Product Selection Permitted Signatures: Dispatcher [employer] Nestor Myers MD MD cha Smirch, Shelby, RN RN Tessa Morton RN RN ll1
[2022-01-04] MEDS ORDERED: AMOX/K CLAV 875 MG TAB ONE (11:07)
[2022-01-04 13:32] VITALS: BP 132/96; TEMP 97.7; O2SAT 100
== END 2022-01-04 11:08 | disposition home or self-care (01) ==
LOC: ER 09:54
DX: J02.9 Acute pharyngitis, unspecified (principal)
CPT/HCPCS: 87070; 87081; 99283

== ENCOUNTER 2022-07-18 14:11 | Emergency (ER) | payer SELFPAY ==
--- OUTSIDE RECORDS SUMMARY | 2022-07-18 14:18 | XMS REPORT | Continuity of Care Document ---
:1995 Author Organization [facility] t Address [address] [place] [address] Care Team Providers Name Role Phone BOOM Attending Clinician Unavailable Brooke Eli Attending Clinician BOOM Admitting Clinician Unavailable Problems Condition Condition Condition Status Onset Resolution Last Treating Co mments Source Name Details Category Date Date Treatment Clinician Date VOMITING VOMITING Diagnosis Active 2015-12-04 Memoria Active 12-03 18:55:00 l 12/04/2015 08:00: Theo MARIN [place] History of Past Illness Condition Condition Condition Status Onset Resolution Last Treating Co mments Source Name Details Category Date Date Treatment Clinician Date Acute Acute Problem 2017-02-14 2017-02-14 M emoria pharyngiti pharyngiti 02-11 02:51:57 02:51:57 l s, s, 05:00: Jared unspecifie unspecifie 00 d d 02/11/2017 02/14/2017 [facility] [place] Discharge Discharge Problem 2015-12-07 2015-12-07 Memoria Diagnosis: Diagnosis: 12-03 00:39:00 00:39:00 l Abdominal Abdominal 06:00: Augusta pedraza pain, pain, 00 acute acute 12/04/2015 12/07/2015 [facility] [place] Discharge Discharge Problem 2015-12-07 2015-12-07 Memoria Diagnosis: Diagnosis: 12-03 00:39:00 00:39:00 l Nausea & Nausea & 06:00: Theo shi vomiting vomiting 00 12/04/2015 12/07/2015 [place] Allergies, Adverse Reactions, Alerts This patient has no known allergies or adverse reactions. Social History Smoking Status Start Date Stop Date Source Social History [facility] Jared Medications Ordered Filled Start Stop Current Ordering Indication Dosage Frequency Signature Comments Components Source Medication Medication Date Date Medication? Clinician (SIG) Name Name { Yes See Memoria (Methylpred 5-22 Instructio l nisolone 4 17:29: ns, PO, Herm milo MG Oral 00 Take by Tablet mouth as [Medrol]) } directed Pack on label., [Medrol # 1 Pack, Dosepak] 0 Refill(s) Acetaminoph No 1 - 2 tab, Memoria en 300 MG / 5-22 PO, Q4H, l Codeine 17:29: PRN Pain, [place] nn Phosphate 00 X 2 day, # 30 MG Oral 20 tab, 0 Tablet Refill(s) [Tylenol with Codeine #3] Dexamethaso No Notes: Be alicia ne - Concentrat l 14:52: ion: Jared 00 4mg/ml Sodium No 1,000 mL, Memori a Chloride 522 1000 l 0.154 14:50: ml/hr, [place] MEQ/ML 00 Infuse Injectable Over: 1 Solution hr, Route: IV, 1,000, Drug form: INJ, ONCE, Priority: STAT, Dosing Weight 34.091 kg, Start date: 02/11/17 9:50:00 CDT, Duration: 1 doses or times, Stop date: 02/11/17 9:50:00 CDT Bicillin No Notes: Memoria C-R -22 (Same as: l 14:49: Bicillin [place] 00 CR) NOT For Daily Use Ondansetron Yes 4 mg = 1 Me moria 4 MG 3-14 tab, PO, l Disintegrat 02:32: BID, PRN He rmann ing Tablet 00 Nausea and [Zofran] Vomiting, Dissolve tab under tongue, X 5 day, # 10 tab, 0 Refill(s) Sodium No 1,000 mL, Memori a Chloride 3-13 Infuse l 0.154 23:24: Over: 1 [place] MEQ/ML 00 hr, Route: Injectable IV, ONCE, Solution Priority: STAT, Dosing Weight 70.455 kg, Start date: 12/04/15 18:24:00, Duration: 1 doses or times, Stop date: 12/04/15 18:24:00 Saline 2016-0 No Notes: Memoria Flush 0.9% 3-13 (Same as: l 23:24: BD Jared 00 Posiflush) Ondansetron 2016-0 No 4 mg, Memor ia 3-13 Route: l 23:24: IVP, ONCE, Jared 00 Dosing Weight 70.455, kg, Priority: STAT, Start date: 12/04/15 18:24:00, Stop date: 12/04/15 18:24:00 Vital Signs Vital Name Observation Time Observation Value Comments Source Systolic (mm Hg) 2017-02-11 17:54:00 Be rial [place] Diastolic (mm Hg) 2017-02-11 17:54:00 Mem orial [place] Temperature Oral (F) 2017-02-11 17:54:00 100 F [facility] Respitory Rate 2017-02-11 17:54:00 Memori al [place] Heart Rate 2017-02-11 17:54:00 [facility] [place] Heart Rate 2017-02-11 14:30:00 [facility] [place] Systolic (mm Hg) 2017-02-11 14:30:00 Be rial [place] Diastolic (mm Hg) 2017-02-11 14:30:00 Mem orial [place] Weight 2017-02-11 14:30:00 [facility] [place] Temperature Oral (F) 2017-02-11 14:30:00 100.0 F [facility] [place] Respitory Rate 2017-02-11 14:30:00 Memori al [place] Systolic (mm Hg) 2015-12-05 02:34:00 Be rial [place] Diastolic (mm Hg) 2015-12-05 02:34:00 Mem orial [place] Temperature Oral (F) 2015-12-05 02:34:00 98.9 F [facility] [place] Respitory Rate 2015-12-05 02:34:00 Memori al [place] Heart Rate 2015-12-05 02:34:00 [facility] [place] Temperature Oral (F) 2015-12-05 00:47:00 99.5 F [facility] [place] Respitory Rate 2015-12-05 00:47:00 Memori al [place] Heart Rate 2015-12-05 00:47:00 [facility] [place] Systolic (mm Hg) 2015-12-05 00:47:00 Be rial [place] Diastolic (mm Hg) 2015-12-05 00:47:00 Mem orial [place] Weight 2015-12-04 22:31:00 Tyler [place] BMI Calculated 2015-12-04 22:31:00 Memori al [place] Heart Rate 2015-12-04 22:31:00 [facility] [place] Systolic (mm Hg) 2015-12-04 22:31:00 Be willett [place] Diastolic (mm Hg) 2015-12-04 22:31:00 Mem orial [place] Height 2015-12-04 22:31:00 160.02 cm [facility] [place] Respitory Rate 2015-12-04 22:31:00 Alaina fuller [place] Temperature Oral (F) 2015-12-04 22:31:00 99.7 F [facility] [place] Procedures Procedure Date / Time Performed Performing Clinician [facility] e Biopsy of liver [facility] [place] Encounters Start End Encounter Admission Attending Care Care Encounter Source Date/Time Date/Time Type Type Clinicians Facility Department ID 2022-04-16 2022-04-16 [facility] [address] 04:34:00 04:34:00 [facility] 2017-02-11 2017-02-11 Emergency nullFlavo [facility] [id number] Memoria 14:19:00 18:00:00 r Jared 02 l [place] 2017-02-11 2017-02-11 Outpatient Sreedhar, [facility] [id number] 09:19:00 13:00:00 Brooke 02 Naomi 2015-12-04 2015-12-05 EC nullFlavo [facility] [id number] Memoria 22:28:00 02:45:00 Emergency r Jared 00 l Center [place] 2015-12-04 2015-12-04 Outpatient Sreedhar, [facility] [id number] 17:28:00 21:45:00 Brooke 00 Naomi Results Test Description Test Time Test Comments Results Result Comments Source URINE AND STOOL 2017-02-11 16:23:00 Test Item Value Reference Range Interpretation Comme nts UA Urobilinogen (test code = UA Urobilinogen) <=1.0 mg/dL 0.1-1.0 [facility] [id number] 16:23:00 Test Item Value Reference Range Interpretation Comments UA Spec Grav (test code = UA Spec Grav) 1.016 [facility] AND [id number] 16:23:00 Test Item Value Reference Range Interpretation Comments UA Bacteria (test code = UA Occasional /HPF Bacteria) [facility] AND [id number] 16:23:00 Test Item Value Reference Range Interpretation Comments UA Mucus (test code = UA Mucus) Few /LPF [facility] AND [id number] 16:23:00 Test Item Value Reference Range Interpretation Comments UA Leuk Est (test Negative (02/11/17 11:23 code = UA Leuk Est) AM) [facility] AND [id number] 16:23:00 Test Item Value Reference Range Interpretation Comments UA RBC (test code = no gt See_Comment [Automa anna message] The UA RBC) system which ge nerated this result transmit anna reference range : <=2. The reference range was not used to interpr et this result as keira l/abnormal. [facility] AND [id number] 16:23:00 Test Item Value Reference Range Interpretation Comments UA WBC (test code = 1 See_Comment [Automa anna message] The UA WBC) system which ge nerated this result transmit anna reference range : <=5. The reference range was not used to interpr et this result as keira l/abnormal. [facility] AND [id number] 16:23:00 Test Item Value Reference Range Interpretation Comments UA Sq Epi (test code = UA Sq Occasional /LPF Epi) [facility] AND [id number] 16:23:00 Test Item Value Reference Range Interpretation Comments UA Glucose (test code = UA Negative mg/dL Glucose) [facility] AND [id number] 16:23:00 Test Item Value Reference Range Interpretation Comments UA Blood (test code = Negative (02/11/17 11:23 UA Blood) AM) [facility] AND [id number] 16:23:00 Test Item Value Reference Range Interpretation Comments UA Bili (test code = Negative *NA*(02/11/17 UA Bili) 11:23 AM) [facility] AND [id number] 16:23:00 Test Item Value Reference Range Interpretation Comments UA Ketones (test code = UA Negative mg/dL Ketones) [facility] AND [id number] 16:23:00 Test Item Value Reference Range Interpretation Comments UA Nitrite (test code Negative (02/11/17 11:23 = UA Nitrite) AM) [facility] AND [id number] 16:23:00 Test Item Value Reference Range Interpretation Comments UA Color (test code = Yellow *NA*(02/11/17 UA Color) 11:23 AM) [facility] AND [id number] 16:23:00 Test Item Value Reference Range Interpretation Comments UA Turbidity (test code Slight *ABN*(02/11/17 = UA Turbidity) 11:23 AM) [facility] AND [id number] 16:23:00 Test Item Value Reference Range Interpretation Comments UA pH (test code = UA pH) 5.0 5.0-8.0 [facility] AND [id number] 16:23:00 Test Item Value Reference Range Interpretation Comments UA Protein (test code = UA Negative mg/dL Protein) [facility] [id number] 16:23:00 Test Item Value Reference Range Interpretation Comments U Preg (test code = U Negative (02/11/17 11:23 Preg) AM) [facility]2017-05-22 15:09:00 Test Item Value Reference Range Interpretation Comments Lipase Lvl (test code = Lipase Lvl) 125 73-393 [facility]2017-05-22 15:09:00 Test Item Value Reference Range Interpretation Comments eGFR (test code = eGFR) 120 [facility]2017-05-22 15:09:00 Test Item Value Reference Range Interpretation Comments Potassium Lvl (test code = Potassium 3.5 3.5-5.1 Lvl) [facility]2017-05-22 15:09:00 Test Item Value Reference Range Interpretation Comments Sodium Lvl (test code = Sodium Lvl) 137 135-145 [facility]2017-05-22 15:09:00 Test Item Value Reference Range Interpretation Comments Calcium Lvl (test code = Calcium Lvl) 9.3 8.5-10.5 [facility]2017-05-22 15:09:00 Test Item Value Reference Range Interpretation Comments CO2 (test code = CO2) 29 24-32 [facility]2017-05-22 15:09:00 Test Item Value Reference Range Interpretation Comments Chloride Lvl (test code = Chloride Lvl) 100 95-109 [facility]2017-05-22 15:09:00 Test Item Value Reference Range Interpretation Comments Glucose Lvl (test code = Glucose Lvl) 128 70-99 [facility]2017-05-22 15:09:00 Test Item Value Reference Range Interpretation Comments BUN (test code = BUN) 7 7-22 [facility]2017-05-22 15:09:00 Test Item Value Reference Range Interpretation Comments Creatinine Lvl (test code = Creatinine 0.73 0.50-1.40 Lvl) [facility]2017-05-22 15:09:00 Test Item Value Reference Range Interpretation Comments AGAP (test code = AGAP) 11.5 10.0-20.0 [id number] 15:09:00 Test Item Value Reference Range Interpretation Comments RBC (test code = RBC) 4.55 4.20-5.40 [facility] [id number] 15:09:00 Test Item Value Reference Range Interpretation Comments WBC (test code = WBC) 23.3 3.7-10.4 [facility] [id number] 15:09:00 Test Item Value Reference Range Interpretation Comments Hgb (test code = Hgb) 12.9 12.0-16.0 [facility] [id number] 15:09:00 Test Item Value Reference Range Interpretation Comments MCH (test code = MCH) 28.5 pg 27.0-31.0 [facility] [id number] 15:09:00 Test Item Value Reference Range Interpretation Comments Hct (test code = Hct) 39.4 36.0-48.0 [facility] [id number] 15:09:00 Test Item Value Reference Range Interpretation Comments MCV (test code = MCV) 86.5 80.0-98.0 [facility] [id number] 15:09:00 Test Item Value Reference Range Interpretation Comments Platelet (test code = Platelet) 273 048-450 [facility] [id number] 15:09:00 Test Item Value Reference Range Interpretation Comments MCHC (test code = MCHC) 32.9 32.0-36.0 [facility] [id number] 15:09:00 Test Item Value Reference Range Interpretation Comments RDW (test code = RDW) 13.8 11.5-14.5 [facility] [id number] 15:09:00 Test Item Value Reference Range Interpretation Comments MPV (test code = MPV) 9.6 7.4-10.4 [facility] [id number] 15:09:00 Test Item Value Reference Range Interpretation Comments Segs-Bands # (test code = Segs-Bands #) 21.4 1.5-8.1 [facility] [id number] 15:09:00 Test Item Value Reference Range Interpretation Comments Monocytes # (test code 0.7 See_Comment [Aut omated message] The = Monocytes #) system which generated this result tra nsmitted reference range : <=0.8. The reference r patricia was not used to int erpret this result as normal/abnormal . [facility] [id number] 15:09:00 Test Item Value Reference Range Interpretation Comments Segs (test code = Segs) 80.0 45.0-75.0 [facility] [id number] 15:09:00 Test Item Value Reference Range Interpretation Comments Lymphocytes # (test code = Lymphocytes 1.2 1.0-5.5 #) [facility] [id number] 15:09:00 Test Item Value Reference Range Interpretation Comments Bands (test code = 12.0 See_Comment [Automat ed message] The Bands) system which ge nerated this result transmit anna reference range : <=11.0. The reference r patricia was not used to interpr et this result as keira l/abnormal. [facility] [id number] 15:09:00 Test Item Value Reference Range Interpretation Comments Lymphocytes (test code = Lymphocytes) 5.0 20.0-40.0 [facility] [id number] 15:09:00 Test Item Value Reference Range Interpretation Comments Plt Morph (test code = Normal (02/11/17 10:09 Plt Morph) AM) [facility] [id number] 15:09:00 Test Item Value Reference Range Interpretation Comments Atypical Lymphs (test code = Atypical 0.0 Lymphs) [facility] [id number] 15:09:00 Test Item Value Reference Range Interpretation Comments Tot Cell Ct (test code = Tot Cell Ct) 100 1 [facility] [id number] 15:09:00 Test Item Value Reference Range Interpretation Comments Monocytes (test code = Monocytes) 3.0 2.0-12.0 [facility] [id number] 15:09:00 Test Item Value Reference Range Interpretation Comments Smudge (test code = Smudge) Slight [facility] [id number] 15:09:00 Test Item Value Reference Range Interpretation Comments Hypochrom (test code = 1+ (02/11/17 10:09 Hypochrom) AM) [facility] AND [id number] 00:39:00 Test Item Value Reference Range Interpretation Comments UA WBC (test code = UA WBC) 0-2 /HPF [facility] AND [id number] 00:39:00 Test Item Value Reference Range Interpretation Comments UA Sq Epi (test code = UA Sq Epi) Few /LPF [facility] AND [id number] 00:39:00 Test Item Value Reference Range Interpretation Comments UA RBC (test None Seen See_Comment [Automated mes yelitza] code = UA RBC) (12/04/15 7:39 The system w hich PM) generated this result transmitted ref erence range: <=2. The reference range was not used to int erpret this result as normal/abnormal . [facility] AND [id number] 00:39:00 Test Item Value Reference Range Interpretation Comments UA Bacteria (test code = UA Few /HPF Bacteria) [facility] AND [id number] 00:39:00 Test Item Value Reference Range Interpretation Comments UA Mucus (test code = UA Mucus) Few /LPF [facility] AND [id number] 00:39:00 Test Item Value Reference Range Interpretation Comments UA Ketones (test code = UA Negative mg/dL Ketones) [facility] AND [id number] 00:39:00 Test Item Value Reference Range Interpretation Comments UA Glucose (test code = UA Negative mg/dL Glucose) [facility] AND [id number] 00:39:00 Test Item Value Reference Range Interpretation Comments UA Protein (test code = UA Negative mg/dL Protein) [facility] [id number] 00:39:00 Test Item Value Reference Range Interpretation Comments UA Urobilinogen (test code = UA 0.2 0.1-1.0 Urobilinogen) [facility] [id number] 00:39:00 Test Item Value Reference Range Interpretation Comments UA Blood (test code = Negative (12/04/15 7:39 UA Blood) PM) [facility] [id number] 00:39:00 Test Item Value Reference Range Interpretation Comments UA Leuk Est (test Negative (12/04/15 7:39 code = UA Leuk Est) PM) [facility] [id number] 00:39:00 Test Item Value Reference Range Interpretation Comments UA Nitrite (test code Negative (12/04/15 7:39 = UA Nitrite) PM) [facility] AND [id number] 00:39:00 Test Item Value Reference Range Interpretation Comments UA Bili (test code = Negative *NA*(12/04/15 UA Bili) 7:39 PM) [facility] AND [id number] 00:39:00 Test Item Value Reference Range Interpretation Comments UA Color (test code = Yellow *NA*(12/04/15 UA Color) 7:39 PM) [facility] AND [id number] 00:39:00 Test Item Value Reference Range Interpretation Comments UA Turbidity (test code = Clear (12/04/15 7:39 UA Turbidity) PM) [facility] AND [id number] 00:39:00 Test Item Value Reference Range Interpretation Comments UA pH (test code = UA pH) 7.5 1 5.0-8.0 [facility] [id number] 00:39:00 Test Item Value Reference Range Interpretation Comments UA Spec Grav (test code = UA Spec 1.020 1 Grav) [facility] [id number] 00:39:00 Test Item Value Reference Range Interpretation Comments U Preg (test code = U Negative (12/04/15 7:39 Preg) PM) [facility] [id number] 23:28:00 Test Item Value Reference Range Interpretation Comments Monocytes (test code = Monocytes) 16.0 2.0-12.0 [facility] [id number] 23:28:00 Test Item Value Reference Range Interpretation Comments Eosinophils (test code = 0.8 See_Comment [A utomated message] The Eosinophils) system which ge nerated this result tra nsmitted reference range : <=4.0. The reference r patricia was not used to int erpret this result as normal/abnormal . [facility] [id number] 23:28:00 Test Item Value Reference Range Interpretation Comments Lymphocytes (test code = Lymphocytes) 14.3 20.0-40.0 [facility] [id number] 23:28:00 Test Item Value Reference Range Interpretation Comments Eosinophils # (test code 0.0 See_Comment [A utomated message] The = Eosinophils #) system whic h generated this result tra nsmitted reference range : <=0.5. The reference r patricia was not used to int erpret this result as normal/abnormal . [facility] [id number] 23:28:00 Test Item Value Reference Range Interpretation Comments Monocytes # (test code 0.8 See_Comment [Aut omated message] The = Monocytes #) system which generated this result tra nsmitted reference range : <=0.8. The reference r patricia was not used to int erpret this result as normal/abnormal . [facility] [id number] 23:28:00 Test Item Value Reference Range Interpretation Comments Basophils # (test code 0.0 See_Comment [Aut omated message] The = Basophils #) system which generated this result tra nsmitted reference range : <=0.2. The reference r patricia was not used to int erpret this result as normal/abnormal . [facility] [id number] 23:28:00 Test Item Value Reference Range Interpretation Comments Lymphocytes # (test code = Lymphocytes 0.7 1.0-5.5 #) [facility]2016-03-13 23:28:00 Test Item Value Reference Range Interpretation Comments Lipase Lvl (test code = Lipase Lvl) 111 73-393 [facility]2016-03-13 23:28:00 Test Item Value Reference Range Interpretation Comments Globulin (test code = Globulin) 3.8 2.0-4.0 [place] [id number] 23:28:00 Test Item Value Reference Range Interpretation Comments B/C Ratio (test code = B/C Ratio) 6 6-25 [place] [id number] 23:28:00 Test Item Value Reference Range Interpretation Comments AGAP (test code = AGAP) 10.5 10.0-20.0 [facility]2016-03-13 23:28:00 Test Item Value Reference Range Interpretation Comments A/G Ratio (test code = A/G Ratio) 1.0 0.7-1.6 [place] 113496-03-13 23:28:00 Test Item Value Reference Range Interpretation Comments Glucose Lvl (test code = Glucose Lvl) 96 70-99 [facility]2016-03-13 23:28:00 Test Item Value Reference Range Interpretation Comments BUN (test code = BUN) 5 7- [facility]2016-03-13 23:28:00 Test Item Value Reference Range Interpretation Comments CO2 (test code = CO2) 27 24-32 [facility]2016-03-13 23:28:00 Test Item Value Reference Range Interpretation Comments Chloride Lvl (test code = Chloride Lvl) 107 95-109 [facility]2016-03-13 23:28:00 Test Item Value Reference Range Interpretation Comments Potassium Lvl (test code = Potassium 3.5 3.5-5.1 Lvl) [facility]2016-03-13 23:28:00 Test Item Value Reference Range Interpretation Comments Sodium Lvl (test code = Sodium Lvl) 141 135-145 [facility]2016-03-13 23:28:00 Test Item Value Reference Range Interpretation Comments Creatinine Lvl (test code = Creatinine 0.77 0.50-1.40 Lvl) [place] 113496-03-13 23:28:00 Test Item Value Reference Range Interpretation Comments AST (test code = AST) 76 See_Comment [Auto mated message] The system which ge nerated this result transmit anna reference range : <=37. The reference range was not used to interpr et this result as keira l/abnormal. [place] 113496-03-13 23:28:00 Test Item Value Reference Range Interpretation Comments ALT (test code = ALT) 132 See_Comment [Auto mated message] The system which ge nerated this result transmit anna reference range : <=65. The reference range was not used to interpr et this result as keira l/abnormal. [facility]2016-03-13 23:28:00 Test Item Value Reference Range Interpretation Comments Albumin Lvl (test code = Albumin Lvl) 3.8 3.5-5.0 [facility] [facility] 23:28:00 Test Item Value Reference Range Interpretation Comments Total Protein (test code = Total 7.6 6.4-8.4 Protein) [facility]2016-03-13 23:28:00 Test Item Value Reference Range Interpretation Comments Calcium Lvl (test code = Calcium Lvl) 8.6 8.5-10.5 [facility]2016-03-13 23:28:00 Test Item Value Reference Range Interpretation Comments Bili Total (test code = Bili Total) 0.7 0.2-1.3 [facility]2016-03-13 23:28:00 Test Item Value Reference Range Interpretation Comments Alk Phos (test code = Alk Phos) 98 39-136 [facility]2016-03-13 23:28:00 Test Item Value Reference Range Interpretation Comments eGFR (test code = eGFR) 114 [id number] 23:28:00 Test Item Value Reference Range Interpretation Comments MCV (test code = MCV) 82.7 80.0-98.0 [facility] Wor[id number] 23:28:00 Test Item Value Reference Range Interpretation Comments MCH (test code = MCH) 27.1 pg 27.0-31.0 [facility] [id number] 23:28:00 Test Item Value Reference Range Interpretation Comments Hct (test code = Hct) 32.5 36.0-48.0 [facility] [id number] 23:28:00 Test Item Value Reference Range Interpretation Comments Hgb (test code = Hgb) 10.6 12.0-16.0 [facility] [id number] 23:28:00 Test Item Value Reference Range Interpretation Comments MPV (test code = MPV) 9.7 7.4-10.4 [place] 24413-03-13 23:28:00 Test Item Value Reference Range Interpretation Comments RBC (test code = RBC) 3.93 4.20-5.40 [facility] [id number] 23:28:00 Test Item Value Reference Range Interpretation Comments WBC (test code = WBC) 4.9 3.7-10.4 [facility] WorthCtbtpbmYZWQTRQBHS2431-30-03 23:28:00 Test Item Value Reference Range Interpretation Comments Platelet (test code = Platelet) 276 133-450 [facility] Wor[id number] 23:28:00 Test Item Value Reference Range Interpretation Comments RDW (test code = RDW) 14.4 11.5-14.5 [facility] WorthHpcpjoeCQPCSWTFHJ9111-04-05 23:28:00 Test Item Value Reference Range Interpretation Comments MCHC (test code = MCHC) 32.8 32.0-36.0 [facility] WorthFokwjdrHGEOCNHVGQ7043-02-55 23:28:00 Test Item Value Reference Range Interpretation Comments Segs (test code = Segs) 68.1 45.0-75.0 [facility] [id number] 23:28:00 Test Item Value Reference Range Interpretation Comments Segs-Bands # (test code = Segs-Bands #) 3.3 1.5-8.1 [facility] [id number] 23:28:00 Test Item Value Reference Range Interpretation Comments Basophils (test code = 0.8 See_Comment [Aut omated message] The Basophils) system which ge nerated this result tra nsmitted reference range : <=1.0. The reference r patricia was not used to int erpret this result as normal/abnormal . [facility]
[2022-07-18] MEDS ORDERED: FAMOTIDINE 20 MG/2 ML VIAL IV ONE (14:51)
[2022-07-18] MEDS ORDERED: ONDANSETRON 4 MG/2 ML VIAL ONE (14:51)
[2022-07-18 15:08] LABS: Absolute Lymphocytes (CBC) 2.4 K/uL (0.7-4.9); Lymphocytes % 30.6 % (15.3-44.8); MCV 87.7 fL (80-100); MPV 8.9 fL (7.6-11.3); RBC Red Blood Cell Count 4.56 M/uL (3.86-4.86)
[2022-07-18 15:35] LABS: Albumin 3.7 g/dL (3.4-5.0); Potassium 3.7 mmol/L (3.5-5.1); Protein, Total 7.6 g/dL (6.4-8.2)
[2022-07-18 15:36] LABS: Urine Blood Negative (Negative); Urine Glucose Negative (Negative); Urine Protein Negative (Negative); Urine Specific Gravity 1.025 (1.005-1.030); Urine pH 5.5 (5.0-7.0)
--- NOTE | 2022-07-18 17:01 | ER ---
Nurse's Notes [facility] Name: Edna Jhaveri Age: 26 yrs Sex: Female : 1995 Arrival Date: 07/18/2022 Time: 14:16 Bed 5 Private MD: Diagnosis: Vomiting Presentation: 07/18 14:25 Chief complaint: Patient states: Throwing up this morning due to nausea. Pt reports ld1 having small blood clot in emesis. Coronavirus screen: At this time, the client does not indicate any symptoms associated with coronavirus-19. Ebola Screen: No symptoms or risks identified at this time. Initial Sepsis Screen: Does the patient meet any 2 criteria? No. Patient's initial sepsis screen is negative. Does the patient have a suspected source of infection? No. Patient's initial sepsis screen is negative. Risk Assessment: Do you want to hurt yourself or someone else? Patient reports no desire to harm self or others. Onset of symptoms was July 18, 2022. 14:25 Method Of Arrival: Ambulatory ld1 14:25 Acuity: WYATT 3 ld1 Triage Assessment: 14:26 General: Appears in no apparent distress. comfortable, Behavior is calm, cooperative, ld1 appropriate for age. Pain: Denies pain. EENT: No signs and/or symptoms were reported regarding the EENT system. Neuro: Level of Consciousness is awake, alert, obeys commands, Oriented to person, place, time, situation. Cardiovascular: Capillary refill < 3 seconds Patient's skin is warm and dry. Respiratory: Airway is patent Respiratory effort is even, unlabored. GI: Abdomen is round non-distended, Reports nausea, vomiting. : No signs and/or symptoms were reported regarding the genitourinary system. Derm: No signs and/or symptoms reported regarding the dermatologic system. Musculoskeletal: No signs and/or symptoms reported regarding the musculoskeletal system. 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 - Social history:: Smoking status: Patient denies any tobacco usage or history of. Patient/guardian denies using alcohol. Screenin:01 Abuse screen: Denies threats or abuse. Denies injuries from another. Nutritional kc6 screening: No deficits noted. Tuberculosis screening: No symptoms or risk factors identified. Fall Risk No fall in past 12 months (0 pts). No secondary diagnosis (0 pts). IV access (20 points). Ambulatory Aid- None/Bed Rest/Nurse Assist (0 pts). Gait- Normal/Bed Rest/Wheelchair (0 pts) Mental Status- Oriented to own ability (0 pts). Total Fontana Fall Scale indicates No Risk (0-24 pts). Assessment: 14:59 General: Appears in no apparent distress. distressed, Behavior is calm, cooperative, kc6 appropriate for age. Pain: Denies pain. Neuro: Healy Agitation-Sedation Scale (RASS): 0 - Alert and Calm Level of Consciousness is awake, alert, obeys commands, Oriented to person, place, time, situation, Appropriate for age. Cardiovascular: Heart tones S1 S2 present Capillary refill < 3 seconds. Respiratory: Airway is patent Trachea midline Respiratory effort is even, unlabored, Respiratory pattern is regular, symmetrical, Breath sounds are clear bilaterally. GI: Abdomen is flat, distended, Bowel sounds hypoactive in right upper quadrant, left upper quadrant, right lower quadrant and left lower quadrant Abd is soft and non tender X 4 quads. Reports nausea, vomiting, vomited this morning and it had "a blood clot in it.". : No signs and/or symptoms were reported regarding the genitourinary system. EENT: No signs and/or symptoms were reported regarding the EENT system. Derm: No signs and/or symptoms reported regarding the dermatologic system. Skin is intact, Skin is pink, warm \\T\\ dry. Musculoskeletal: No signs and/or symptoms reported regarding the musculoskeletal system. Circulation, motion, and sensation intact. Capillary refill < 3 seconds, Range of motion: intact in all extremities. 15:59 Reassessment: Patient appears in no apparent distress at this time. No changes from kc6 previously documented assessment. Patient and/or family updated on plan of care and expected duration. Pain level reassessed. Patient is alert, oriented x 3, equal unlabored respirations, skin warm/dry/pink. Patient denies pain at this time. 16:59 Reassessment: Patient appears in no apparent distress at this time. No changes from kc6 previously documented assessment. Patient and/or family updated on plan of care and expected duration. Pain level reassessed. Patient is alert, oriented x 3, equal unlabored respirations, skin warm/dry/pink. Patient denies pain at this time. Vital Signs: 14:25 BP 150 / 96; Pulse 69; Resp 18; Temp 97.0(O); Pulse Ox 96% on R/A; Weight 77.11 kg; ld1 Height 5 ft. 2 in. (157.48 cm); Pain 0/10; 16:15 BP 119 / 80 LA Sitting (auto/reg); Pulse 59 LA; Resp 16 S; Temp 98.4(O); Pulse Ox 100% kc6 on R/A; Pain 0/10; 17:22 BP 122 / 86; Pulse 62; Resp 17 S; Pulse Ox 100% on R/A; Pain 0/10; kc6 14:25 Body Mass Index 31.09 (77.11 kg, 157.48 cm) ld1 ED Course: 14:16 Patient arrived in ED. rg4 14:26 Triage completed. ld1 14:26 Arm band placed on right wrist. ld1 14:28 Wiliam Rivera NP is PHCP. pm1 14:28 Stephen Alvarado DO is Attending Physician. pm1 14:30 Asher Johnson, BRENNON is Primary Nurse. jd3 14:50 Inserted saline lock: 20 gauge in left antecubital area, using aseptic technique. Blood jd3 collected. 14:58 CBC with Diff Sent. kc6 14:58 CMP Sent. kc6 14:58 Lipase Sent. kc6 15:01 Patient has correct armband on for positive identification. Bed in low position. Call kc6 light in reach. Side rails up X 1. Adult w/ patient. 17:32 No provider procedures requiring assistance completed. IV discontinued, intact, kc6 bleeding controlled, No redness/swelling at site. Pressure dressing applied. Administered Medications: 14:58 Drug: Pepcid (famotidine) 20 mg Route: IVP; Site: left antecubital; kc6 15:58 Follow up: Response: No adverse reaction kc6 14:58 Drug: Zofran (Ondansetron) 4 mg Route: IVP; Site: left antecubital; kc6 15:58 Follow up: Response: No adverse reaction; Nausea is decreased kc6 Medication: 17:32 VIS not applicable for this client. kc6 Outcome: 17:01 Discharge ordered by . pm1 17:32 Discharged to home ambulatory, with significant other. kc6 17:32 Condition: stable 17:32 Discharge instructions given to patient, significant other, Instructed on discharge instructions, follow up and referral plans. medication usage, Demonstrated understanding of instructions, follow-up care, medications, Prescriptions given X 2. 17:32 Patient left the ED. kc6 Signatures: Wiliam Rivera NP EMERGENCY VEHICLE DISPATCHER pm1 Linsey Astudillo rg4 Asher Johnson RN RN jd3 Naomi Lowe RN RN ld1 Brianda Genao RN RN kc6
--- NOTE | 2022-07-18 17:01 | EDPHYS ---
Physician Documentation [facility] Name: Edna Jhaveri Age: 26 yrs Sex: Female : 1995 Arrival Date: 07/18/2022 Time: 14:16 Bed 5 Private MD: ED Physician Stephen Alvarado HPI: 07/18 14:36 This 26 yrs old Female presents to ER via Ambulatory with complaints of pm1 Vomited Blood. 14:36 The patient presents to the emergency department with vomiting, vomit with blood pm1 present this AM. Onset: The symptoms/episode began/occurred this morning. Possible causes: unknown. The symptoms are aggravated by nothing. The symptoms are alleviated by nothing. Associated signs and symptoms: Pertinent positives: Abdominal pain LUQ, Pertinent negatives: dysuria, fever. Severity of symptoms: in the emergency department the symptoms have resolved. The patient has experienced similar episodes in the past, patient with nausea and vomiting about 3 times per week each morning for years due to reflux disease. Patient has taken PPI in the past. 3 different PPIs that didn't work so she stopped taking them. The patient has not recently seen a physician. 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 - Social history:: Smoking status: Patient denies any tobacco usage or history of. Patient/guardian denies using alcohol. ROS: 14:36 Constitutional: Negative for fever, chills, and weight loss, Cardiovascular: Negative pm1 for chest pain, palpitations, and edema, Respiratory: Negative for shortness of breath, cough, wheezing, and pleuritic chest pain. 14:36 Back: Negative for injury and pain, MS/Extremity: Negative for injury and deformity, Skin: Negative for injury, rash, and discoloration, Neuro: Negative for headache, weakness, numbness, tingling, and seizure. 14:36 Abdomen/GI: Positive for abdominal pain, hematemesis, of the left upper quadrant, Negative for diarrhea, black/tarry stool, rectal bleeding. 14:36 All other systems are negative. Exam: 14:36 Constitutional: This is a well developed, well nourished patient who is awake, alert, pm1 and in no acute distress. Head/Face: Normocephalic, atraumatic. 14:36 Back: No spinal tenderness. No costovertebral tenderness. Full range of motion. Skin: Warm, dry with normal turgor. Normal color with no rashes, no lesions, and no evidence of cellulitis. MS/ Extremity: Pulses equal, no cyanosis. Neurovascular intact. Full, normal range of motion. 14:36 Cardiovascular: Exam negative for acute changes, Rate: normal, Rhythm: regular, Pulses: no pulse deficits are appreciated. 14:36 Respiratory: Exam negative for acute changes, respiratory distress, shortness of breath, Breath sounds: are clear throughout. 14:36 Abdomen/GI: Inspection: abdomen appears normal, Palpation: abdomen is soft and non-tender, in all quadrants. 14:36 Neuro: Exam negative for acute changes, Orientation: is normal, Mentation: is normal, Motor: is normal, moves all fours. 17:03 Abdomen/GI: Inspection: abdomen appears normal, Palpation: abdomen is soft and pm1 non-tender, in all quadrants. Vital Signs: 14:25 BP 150 / 96; Pulse 69; Resp 18; Temp 97.0(O); Pulse Ox 96% on R/A; Weight 77.11 kg; ld1 Height 5 ft. 2 in. (157.48 cm); Pain 0/10; 16:15 BP 119 / 80 LA Sitting (auto/reg); Pulse 59 LA; Resp 16 S; Temp 98.4(O); Pulse Ox 100% kc6 on R/A; Pain 0/10; 17:22 BP 122 / 86; Pulse 62; Resp 17 S; Pulse Ox 100% on R/A; Pain 0/10; kc6 14:25 Body Mass Index 31.09 (77.11 kg, 157.48 cm) ld1 MDM: 14:28 Patient medically screened. pm1 14:58 ED course: Patient with picture of blood clot that she vomited. Small speck of blood in pm1 vomitus. Negative for davonte gross blood or coffee ground emesis . 15:12 Data reviewed: vital signs. Data interpreted: Pulse oximetry: on room air is 96 %. pm1 Interpretation: normal. 17:00 Counseling: I had a detailed discussion with the patient and/or guardian regarding: the pm1 historical points, exam findings, and any diagnostic results supporting the discharge/admit diagnosis, lab results, the need for outpatient follow up, a consumer affairs specialist, to return to the emergency department if symptoms worsen or persist or if there are any questions or concerns that arise at home. 17:00 ED course: Patient educated at length on dietary and lifestyle changes for managing pm1 reflux disease and fatty liver disease. Patient without any further episodes of vomiting in the ER. Instructed to follow up with GI for EGD and further treatment. Patient improved with pepcid in the ER. 07/18 14:36 Order name: CBC with Diff; Complete Time: 15:12 pm1 07/18 14:36 Order name: CMP; Complete Time: 15:46 pm1 07/18 14:36 Order name: Lipase; Complete Time: 15:46 pm1 07/18 15:35 Order name: Urine --Ancillary (enter results) bd 07/18 15:36 Order name: Urine Dipstick-Ancillary; Complete Time: 15:46 EDMS 07/18 14:36 Order name: IV Saline Lock; Complete Time: 14:50 pm1 07/18 14:36 Order name: Labs collected and sent; Complete Time: 14:50 pm1 07/18 14:36 Order name: Urine Dipstick-Ancillary (obtain specimen); Complete Time: 15:35 pm1 07/18 14:36 Order name: Urine Test (obtain specimen); Complete Time: 15:35 pm1 Administered Medications: 14:58 Drug: Pepcid (famotidine) 20 mg Route: IVP; Site: left antecubital; kc6 15:58 Follow up: Response: No adverse reaction kc6 14:58 Drug: Zofran (Ondansetron) 4 mg Route: IVP; Site: left antecubital; kc6 15:58 Follow up: Response: No adverse reaction; Nausea is decreased kc6 Disposition: 21:14 Co-signature as Attending Physician, Stephen RAM was immediately available on-site ms3 in the Emergency Department for consultation in the care of the patient.. Disposition Summary: 07/18/22 17:01 Discharge Ordered Location: Home pm1 Problem: new pm1 Symptoms: have improved pm1 Condition: Stable pm1 Diagnosis - Vomiting pm1 Followup: pm1 - With: Emergency Department - When: As needed - Reason: Worsening of condition Followup: pm1 - With: Private Physician - When: 2 - 3 days - Reason: Recheck today's complaints, Continuance of care, Re-evaluation by your physician Discharge Instructions: - Discharge Summary Sheet pm1 - Food Choices for Gastroesophageal Reflux Disease, Adult pm1 - Gastroesophageal Reflux Disease, Adult pm1 - Vomiting, Adult pm1 Forms: - Medication Reconciliation Form pm1 - Thank You Letter pm1 - Antibiotic Education pm1 - Prescription Opioid Use pm1 - Work release form kc6 Prescriptions: - ondansetron 4 mg Oral tablet,disintegrating - take 1 tablet by ORAL route every 8 hours As needed; 12 tablet; Refills: 0, pm1 Product Selection Permitted - Pepcid 20 mg Oral Tablet - take 1 tablet by ORAL route every 12 hours for 10 days; 20 tablet; Refills: 0, pm1 Product Selection Permitted Signatures: Dispatcher [employer] EDWiliam Cervantes NP ROAD PATCHER pm1 Stephen Alvarado DO DO ms3 Naomi Lowe, RN RN ld1 Brianda Genao RN RN kc6
[2022-07-18 17:46] VITALS: TEMP 98.4; O2SAT 100
[2022-07-18 17:47] VITALS: BP 122/86
[2022-07-18 19:56] LABS: Urine Specific Gravity/Preg 1.025 (1.005-1.030)
== END 2022-07-18 17:32 | disposition home or self-care (01) ==
LOC: ER 14:11
DX: R11.10 Vomiting, unspecified (principal)
CPT/HCPCS: 36415; 80053; 81003; 81025; 83690; 85025; 96374; 96375; 99284; J2405

== ENCOUNTER 2022-08-09 13:49 | Emergency (ER) | payer SELFPAY ==
[2022-08-09] MEDS ORDERED: NA CHLORIDE 0.9% 1,000 ML ONE (15:03)
[2022-08-09] MEDS ORDERED: ONDANSETRON 4 MG/2 ML VIAL ONE (15:03)
[2022-08-09] MEDS ORDERED: FAMOTIDINE 20 MG/2 ML VIAL IV ONE (15:03)
[2022-08-09 15:28] LABS: Urine Blood Negative (Negative); Urine Glucose Negative (Negative); Urine Protein Trace (Negative); Urine pH 8.5 (5.0-7.0)
[2022-08-09 15:29] LABS: Absolute Lymphocytes (CBC) 0.7 K/uL (0.7-4.9); Hematocrit 42.4 % (36.0-45.0); Lymphocytes % 6.4 % (15.3-44.8); MCV 87.8 fL (80-100); RBC Red Blood Cell Count 4.83 M/uL (3.86-4.86)
[2022-08-09 15:31] LABS: Blood Morphology Comment NOT SEEN (NOT SEEN); Platelet Estimate ADEQ; White Blood Cell Scan OK (OK)
[2022-08-09 15:49] LABS: Albumin 3.7 g/dL (3.4-5.0); Bilirubin Total 1.4 mg/dL (0.2-1.0); Potassium 3.7 mmol/L (3.5-5.1)
[2022-08-09 16:03] LABS: SARS-COV-2 RT PCR NEGATIVE (NEGATIVE)
--- NOTE | 2022-08-09 17:03 | RAD REPORT ---
EXAM DESCRIPTION: CTAbdomen Pelvis W Contrast - 08/09/2022 4:47 pm CLINICAL HISTORY: Lower abdominal pain COMPARISON: No comparisons TECHNIQUE: CT of the abdomen and pelvis was performed. All CT scans are performed using dose optimization technique as appropriate and may include automated exposure control or mA/KV adjustment according to patient size. FINDINGS: Lower chest: No acute abnormality. Liver: No acute abnormality or suspicious lesions. Biliary: No biliary ductal dilatation. Stomach: No significant focal abnormality. Duodenum: No significant focal abnormality. Pancreas: No significant abnormality. Spleen: No significant abnormality. Adrenal: No suspicious lesions. Kidney/ureter: No hydronephrosis. No renal calculi. Retroperitoneum: No retroperitoneal adenopathy. Vascular: No aneurysm. Bowel: No significant focal abnormality. Normal appendix. Peritoneum: No ascites or free air. Bladder: Grossly unremarkable. Reproductive: No adnexal masses. Bones: No acute fracture. Other: n/a IMPRESSION: No acute intra-abdominal or pelvic finding. Normal appendix.
--- NOTE | 2022-08-09 17:14 | EDPHYS ---
Physician Documentation [facility] Name: Edna Jhaveri Age: 26 yrs Sex: Female : 1995 Arrival Date: 08/09/2022 Time: 13:53 Bed 11 Private MD: ED Physician Nestor Sprague HPI: 08/09 14:25 This 26 yrs old Female presents to ER via Ambulatory with complaints of jh7 Vomiting/Diarrhea. 14:25 The patient presents to the emergency department with nausea, vomiting, diarrhea. jh7 Onset: The symptoms/episode began/occurred this morning. Associated signs and symptoms: Pertinent positives: fever, Pertinent negatives: abdominal pain. Historical: - Allergies: 14:21 No Known Allergies; kr3 - PMHx: 14:21 fatty liver; kr3 - PSHx: 14:21 liver biospy; kr3 - Immunization history:: Adult Immunizations not up to date. - Social history:: Smoking status: Patient denies any tobacco usage or history of. ROS: 14:25 Constitutional: Negative for fever, chills, and weight loss, Eyes: Negative for injury, jh7 pain, redness, and discharge, ENT: Negative for injury, pain, and discharge, Neck: Negative for injury, pain, and swelling, Cardiovascular: Negative for chest pain, palpitations, and edema, Respiratory: Negative for shortness of breath, cough, wheezing, and pleuritic chest pain, Back: Negative for injury and pain, MS/Extremity: Negative for injury and deformity, Skin: Negative for injury, rash, and discoloration, Neuro: Negative for headache, weakness, numbness, tingling, and seizure. 14:25 Abdomen/GI: Positive for nausea, vomiting, and diarrhea, abdominal cramps, Negative for abdominal pain, rectal pain, rectal bleeding. 14:25 All other systems are negative. Exam: 14:25 Constitutional: This is a well developed, well nourished patient who is awake, alert, jh7 and in no acute distress. Head/Face: Normocephalic, atraumatic. Eyes: Pupils equal round and reactive to light, extra-ocular motions intact. Lids and lashes normal. Conjunctiva and sclera are non-icteric and not injected. Cornea within normal limits. Periorbital areas with no swelling, redness, or edema. ENT: Nares patent. No nasal discharge, no septal abnormalities noted. Tympanic membranes are normal and external auditory canals are clear. Oropharynx with no redness, swelling, or masses, exudates, or evidence of obstruction, uvula midline. Mucous membranes moist. Cardiovascular: Regular rate and rhythm with a normal S1 and S2. No gallops, murmurs, or rubs. Normal PMI, no JVD. No pulse deficits. Respiratory: Lungs have equal breath sounds bilaterally, clear to auscultation and percussion. No rales, rhonchi or wheezes noted. No increased work of breathing, no retractions or nasal flaring. Back: No spinal tenderness. No costovertebral tenderness. Full range of motion. Skin: Warm, dry with normal turgor. Normal color with no rashes, no lesions, and no evidence of cellulitis. MS/ Extremity: Pulses equal, no cyanosis. Neurovascular intact. Full, normal range of motion. Neuro: Awake and alert, GCS 15, oriented to person, place, time, and situation. Motor strength 5/5 in all extremities. Sensory grossly intact. Normal gait. 14:25 Abdomen/GI: Inspection: abdomen appears normal, Bowel sounds: normal, Palpation: abdomen is soft and non-tender, in all quadrants. Vital Signs: 14:18 BP 132 / 90; Pulse 102; Resp 18; Temp 100.0; Pulse Ox 100% on R/A; Weight 81.65 kg; kr3 Height 5 ft. 2 in. (157.48 cm); Pain 6/10; 17:26 BP 113 / 79; Pulse 96; Resp 16; Pulse Ox 100% on R/A; tp1 14:18 Body Mass Index 32.92 (81.65 kg, 157.48 cm) kr3 MDM: 13:57 Patient medically screened. [facility] 17:15 Differential diagnosis: gastritis, viral gastroenteritis, gastroenteritis. Data [facility] reviewed: vital signs, nurses notes, lab test result(s), radiologic studies, CT scan. Data interpreted: Pulse oximetry: is 100 %. Interpretation: normal. Counseling: I had a detailed discussion with the patient and/or guardian regarding: the historical points, exam findings, and any diagnostic results supporting the discharge/admit diagnosis, to return to the emergency department if symptoms worsen or persist or if there are any questions or concerns that arise at home. ED course: The patient remained hemodynamically stable throughout the ER visit. Discussed elevated LFTs with the patient, which she states she has a history of. Advised to take medication as directed, increase p.o. fluid intake, and avoid spicy/greasy foods that may exacerbate symptoms. If she develops any new concerning symptoms, she may return to the ER for further eval.. 08/09 14:28 Order name: CBC with Diff; Complete Time: 15:46 [facility] 08/09 14:28 Order name: CMP; Complete Time: 16:12 [facility] 08/09 14:28 Order name: Lipase; Complete Time: 16:12 [facility] 08/09 14:28 Order name: COVID-19/FLU A+B; Complete Time: 16:12 [facility] 08/09 15:28 Order name: Urine Dipstick-Ancillary; Complete Time: 15:46 [facility] 08/09 15:29 Order name: Urine --Ancillary (enter results); Complete Time: 15:46 08/09 14:28 Order name: IV Saline Lock; Complete Time: 15:18 [facility] 08/09 14:28 Order name: Labs collected and sent; Complete Time: 15:18 [facility] 08/09 14:28 Order name: Urine Dipstick-Ancillary (obtain specimen); Complete Time: 15:27 [facility] 08/09 15:31 Order name: CBC Smear Scan; Complete Time: 15:46 [facility] 08/09 16:12 Order name: CT Abd/Pelvis - IV Contrast Only; Complete Time: 17:10 [facility] 08/09 14:28 Order name: Urine Test (obtain specimen); Complete Time: 15:27 [facility] Administered Medications: 15:10 Drug: NS 0.9% 1000 ml Route: IV; Rate: 1 bolus; Site: right antecubital; tp1 16:25 Follow up: IV Status: Completed infusion; IV Intake: 1000ml tp1 15:10 Drug: Zofran (Ondansetron) 4 mg Route: IVP; Site: right antecubital; tp1 17:27 Follow up: Response: Nausea is decreased tp1 15:13 Drug: Pepcid (famotidine) 20 mg Route: IVP; Site: right antecubital; tp1 17:27 Follow up: Response: Pain is decreased tp1 Disposition Summary: 08/09/22 17:13 Discharge Ordered Location: Home [facility] Problem: new [facility] Symptoms: have improved [facility] Condition: Stable [facility] Diagnosis - Other specified noninfective gastroenteritis and colitis [facility] Followup: [facility] - With: Private Physician - When: 2 - 3 days - Reason: Recheck today's complaints Discharge Instructions: - Discharge Summary Sheet [facility] - Viral Gastroenteritis, Adult [facility] Forms: - Medication Reconciliation Form 7 - Work release form tp1 - Thank You Letter [facility] Prescriptions: - Zofran 4 mg Oral Tablet - take 1 tablet by ORAL route every 12 hours As needed; 20 tablet; Refills: 0, [facility] Product Selection Permitted - Levsin 0.125 mg Oral Tablet - take 1 tablet by ORAL route every 8 hours; 30 tablet; Refills: 0, Product [facility] Selection Permitted Addendum: 08/11/2022 08:36 Co-signature as Attending Physician, Nestor Sprague MD I agree with the assessment and c rodriguez plan of care. Signatures: Dispatcher [employer] EDNestor Mc MD MD cha Parker, Tiffany, RN RN tp1 Michelle Crowder, DIRECTOR OF ADULT EPILEPSY DIRECTOR OF ADULT EPILEPSY 7 Janiya Baldwin RN RN kr3
--- NOTE | 2022-08-09 17:14 | ER ---
Nurse's Notes [facility] Name: Edna Jhaveri Age: 26 yrs Sex: Female : 1995 Arrival Date: 08/09/2022 Time: 13:53 Bed 11 Private MD: Diagnosis: Other specified noninfective gastroenteritis and colitis Presentation: 08/09 14:18 Chief complaint: Patient states: N/V/D that started this morning, I have tried to drink kr3 water and gatorade and I cannot keep anything down. Coronavirus screen: Vaccine status: Patient reports receiving the 2nd dose of the covid vaccine. Client denies travel out of the [place] in the last 14 days. Ebola Screen: Patient denies travel to an Ebola-affected area in the 21 days before illness onset. Initial Sepsis Screen: Does the patient meet any 2 criteria? No. Patient's initial sepsis screen is negative. Does the patient have a suspected source of infection? No. Patient's initial sepsis screen is negative. Risk Assessment: Do you want to hurt yourself or someone else? Patient reports no desire to harm self or others. Onset of symptoms was August 09, 2022. 14:18 Method Of Arrival: Ambulatory kr3 14:18 Acuity: WYATT 4 kr3 Triage Assessment: 14:21 General: Appears uncomfortable, ill, Behavior is calm, cooperative, appropriate for kr3 age. Pain: Complains of pain in abdomen. Historical: - Allergies: 14:21 No Known Allergies; kr3 - PMHx: 14:21 fatty liver; kr3 - PSHx: 14:21 liver biospy; kr3 - Immunization history:: Adult Immunizations not up to date. - Social history:: Smoking status: Patient denies any tobacco usage or history of. Screenin:18 Abuse screen: Denies threats or abuse. Denies injuries from another. Nutritional tp1 screening: No deficits noted. Tuberculosis screening: No symptoms or risk factors identified. Fall Risk None identified. Assessment: 15:20 General: Appears in no apparent distress. comfortable, Behavior is calm, cooperative. tp1 Pain: Complains of pain in abdomen Pain does not radiate. Pain currently is 6 out of 10 on a pain scale. Quality of pain is described as aching. Neuro: Level of Consciousness is awake, alert, obeys commands, Oriented to person, place, time, situation. Cardiovascular: Patient's skin is warm and dry. Respiratory: Airway is patent Respiratory effort is even, unlabored. GI: Abdomen is obese, Reports diarrhea, nausea, vomiting. : No signs and/or symptoms were reported regarding the genitourinary system. EENT: No signs and/or symptoms were reported regarding the EENT system. Derm: Skin is pink, warm \T\ dry. Musculoskeletal: Circulation, motion, and sensation intact. 16:25 Reassessment: Patient appears in no apparent distress at this time. No changes from tp1 previously documented assessment. Patient and/or family updated on plan of care and expected duration. Pain level reassessed. Patient is alert, oriented x 3, equal unlabored respirations, skin warm/dry/pink. Vital Signs: 14:18 BP 132 / 90; Pulse 102; Resp 18; Temp 100.0; Pulse Ox 100% on R/A; Weight 81.65 kg; kr3 Height 5 ft. 2 in. (157.48 cm); Pain 6/10; 17:26 BP 113 / 79; Pulse 96; Resp 16; Pulse Ox 100% on R/A; tp1 14:18 Body Mass Index 32.92 (81.65 kg, 157.48 cm) kr3 ED Course: 13:53 Patient arrived in ED. mr 13:57 Michelle Crowder FNP is [facility]. jh7 13:57 Nestor Sprague MD is Attending Physician. 7 14:21 Triage completed. kr3 14:22 Arm band placed on right wrist. kr3 15:01 Lulu Shelton, BRENNON is Primary Nurse. tp1 15:18 Patient has correct armband on for positive identification. Bed in low position. Call tp1 light in reach. 15:18 COVID-19/FLU A+B Sent. tp1 15:18 No provider procedures requiring assistance completed. Inserted saline lock: 20 gauge tp1 in right antecubital area, using aseptic technique. Blood collected. 16:49 CT Abd/Pelvis - IV Contrast Only In Process Unspecified. EDMS 17:26 IV discontinued, intact, bleeding controlled, No redness/swelling at site. Pressure tp1 dressing applied. Administered Medications: 15:10 Drug: NS 0.9% 1000 ml Route: IV; Rate: 1 bolus; Site: right antecubital; tp1 16:25 Follow up: IV Status: Completed infusion; IV Intake: 1000ml tp1 15:10 Drug: Zofran (Ondansetron) 4 mg Route: IVP; Site: right antecubital; tp1 17:27 Follow up: Response: Nausea is decreased tp1 15:13 Drug: Pepcid (famotidine) 20 mg Route: IVP; Site: right antecubital; tp1 17:27 Follow up: Response: Pain is decreased tp1 Medication: 15:19 VIS not applicable for this client. tp1 Intake: 16:25 IV: 1000ml; Total: 1000ml. tp1 Outcome: 17:13 Discharge ordered by . [facility] 17:26 Discharged to home ambulatory, with family. tp1 17:26 Condition: good 17:26 Discharge instructions given to patient, Instructed on discharge instructions, follow up and referral plans. medication usage, Demonstrated understanding of instructions, follow-up care, medications, Prescriptions given X 2. 17:27 Patient left the ED. tp1 Signatures: Dispatcher [employer] Becki Thompson Tiffany, RN RN tp1 Michelle Crowder, CYTOGENETIC TECHNOLOGIST CYTOGENETIC TECHNOLOGIST 7 Janiya Baldwin RN RN kr3
[2022-08-09 18:03] VITALS: TEMP 100; O2SAT 100
[2022-08-09 18:04] VITALS: BP 113/79
== END 2022-08-09 17:27 | disposition home or self-care (01) ==
LOC: ER 13:49
DX: K52.89 Other specified noninfective gastroenteritis and colitis (principal); Z20.822 Contact with and (suspected) exposure to COVID-19
CPT/HCPCS: 0240U; 36415; 74177; 80053; 81003; 81025; 83690; 85025; 96361; 96374; 96375; 99284; J2405; J7030; Q9967

== ENCOUNTER 2024-09-08 18:16 | Emergency (ER) | payer SELFPAY ==
[2024-09-08] MEDS ORDERED: NA CHLORIDE 0.9% 1,000 ML ONE (20:20)
[2024-09-08] MEDS ORDERED: KETOROLAC 30 MG/ML INJ ONE (20:20)
[2024-09-08 20:26] LABS: Absolute Basophils 0.1 K/uL (0-0.5); Absolute Eosinophils 0.2 K/uL (0-0.5); Absolute Lymphocytes (CBC) 3.4 K/uL (0.7-4.9); Absolute Monocytes 0.7 K/uL (0.1-1.3); Absolute Neutrophil 6.2 K/uL (1.8-8.0); Basophils % 0.6 % (0-1.3); Eosinophils % 1.7 % (0-4.4); Hematocrit 38.9 % (36.0-45.0); Hemoglobin 12.7 g/dL (12.0-15.0); Lymphocytes % 32.1 % (15.3-44.8); MCH 29.2 pg (27.0-35.0); MCHC 32.7 g/dL (32.0-36.0); MCV 89.2 fL (80-100); Monocytes % 6.9 % (3.3-12.3); Neutrophils % 58.7 % (41.7-73.7); Platelets 271 thou/uL (152-406); RBC Red Blood Cell Count 4.36 M/uL (3.86-4.86); Red Cell Distribution Width 13.1 % (12.1-15.2)
[2024-09-08 20:42] LABS: Albumin 3.5 g/dL (3.4-5.0); Albumin/Globulin Ratio 0.9 (1.1-1.8); Anion Gap 7.7 mEq/L (5.0-15.0); Bilirubin Total 0.9 mg/dL (0.2-1.0); Globulin 4.1 g/dL (2.3-3.5); Potassium 3.7 mEq/L (3.5-5.1); Protein, Total 7.6 g/dL (6.4-8.2)
[2024-09-08 21:10] LABS: Urine Bilirubin NEGATIVE (Negative); Urine Blood Negative (Negative); Urine Clarity Clear (Clear); Urine Color Light-Yellow (Yellow); Urine Glucose NEGATIVE (Negative); Urine Ketones NEGATIVE (Negative); Urine Microscopic Reflex YN NO UMIC; Urine Nitrite NEGATIVE (Negative); Urine Protein NEGATIVE (Negative); Urine Urobilinogen Normal (Normal); Urine pH 6.5 (5.0-7.0)
--- NOTE | 2024-09-09 00:43 | RAD REPORT ---
EXAM DESCRIPTION: Abdomen Pelvis W Contrast CLINICAL HISTORY: 29 years Female, r/o perirectal abscess TECHNIQUE: Helical CT axial images are obtained from the lung bases to the pubic symphysis with IV co ntrast. No oral contrast was administered. Multiplanar reconstruction. This exam was performed according to our departmental dose-optimization program, which includes automated exposure control, a djustment of the mA and/or kV according to patient size and/or use of iterative reconstruction technique. COMPARISON: 08/09/2022 FINDINGS: LUNG BASES: No basilar consolidation or effusions. LIVER: Normal in size. Normal attenuation. No focal masses. HEPATOBILIARY: Normal-appearing gallbladder. No intra- or extrahepatic ductal dilatation. SPLEEN: Normal size. PANCREAS: Normal size and contour. No focal mass. ADRENAL GLANDS: Normal size. No adrenal masses. KIDNEYS: Bilateral kidneys are normal in size without obstructing calculi or hydronephrosis. No nep hrolithiasis. No significant cysts are present. No focal solid mass. BOWEL AND MESENTERY: No small or large bowel dilatation. No colonic diverticulosis. Normal appendix . No abnormal mesenteric lymphadenopathy. No free fluid or pneumoperitoneum. RETROPERITONEUM: Normal caliber abdominal aorta without aneurysm. No abnormal retroperitoneal lymphad enopathy. PELVIS: Urinary bladder is suboptimally distended. Uterus and adnexal regions are unremarkable. ABDOMINAL WALL: No perianal or ischiorectal fossa fat stranding or fluid collections. BONES: No suspicious osseous lytic or blastic lesions seen. IMPRESSION: 1. No perianal or ischiorectal fossa cellulitis or abscess. 2. No acute intra-abdominal or pelvic disease. Electronically signed by: Domenic Montejo MD 09/09/2024 12:24 AM [facility] N Due to temporary technical issues with the [employer] reporting system, reports are being mirtha d by the in-house radiologist without review as a courtesy to ensure prompt reporting the interpreting radiologist is fully responsible for the content of the report. Transcribed Date/Time: 09/09/2024 12:42 AM
--- NOTE | 2024-09-09 00:56 | ER ---
Nurse's Notes [facility] Name: Edna Jhaveri Age: 29 yrs Sex: Female : 1995 Arrival Date: 09/08/2024 Time: 18:16 Bed 8 Private MD: Diagnosis: Unspecified hemorrhoids Presentation: 09/08 18:42 Chief complaint: Patient states: I have been bleeding on and off from my rectum. It is tm6 swollen and hurts really bad. Been going on for about a month. Coronavirus screen: Client denies travel out of the [place] in the last 14 days. Ebola Screen: Patient negative for fever greater than or equal to 101.5 degrees Fahrenheit, and additional compatible Ebola Virus Disease symptoms Patient denies exposure to infectious person. Patient denies travel to an Ebola-affected area in the 21 days before illness onset. No symptoms or risks identified at this time. Initial Sepsis Screen: Does the patient meet any 2 criteria? No. Patient's initial sepsis screen is negative. Does the patient have a suspected source of infection? No. Patient's initial sepsis screen is negative. Risk Assessment: Do you want to hurt yourself or someone else? Patient reports no desire to harm self or others. Onset of symptoms was August 09, 2024. 18:42 Method Of Arrival: Ambulatory tm6 18:42 Acuity: WYATT 4 tm6 Triage Assessment: 18:42 General: Appears uncomfortable, Behavior is calm, cooperative, crying. Pain: Complains tm6 of pain in buttocks Pain currently is 8 out of 10 on a pain scale. Pain began one month ago. EENT: No signs and/or symptoms were reported regarding the EENT system. Neuro: Level of Consciousness is awake, alert, obeys commands, Oriented to person, place, time, situation. Cardiovascular: Patient's skin is warm and dry. Respiratory: Airway is patent Respiratory effort is even, unlabored, Respiratory pattern is regular, symmetrical. GI: Reports rectal bleeding, Pain is 8 out of 10 on a pain scale. : No signs and/or symptoms were reported regarding the genitourinary system. Derm: No signs and/or symptoms reported regarding the dermatologic system. Musculoskeletal: No signs and/or symptoms reported regarding the musculoskeletal system. 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 - Infectious Disease History:: Denies. - Social history:: Smoking status: Patient denies any tobacco usage or history of. Screenin:27 [facility] ED Fall Risk Assessment (Adult) History of falling in the last 3 months, aa10 including since admission No falls in past 3 months (0 pts) Confusion or Disorientation No (0 pts) Intoxicated or Sedated No (0 pts) Impaired Gait No (0 pts) Mobility Assist Device Used No (0 pt) Altered Elimination No (0 pt) Score/Fall Risk Level 0 - 2 = Low Risk Oriented to surroundings, Maintained a safe environment, Educated pt \T\ family on fall prevention, incl call for assistance when getting out of bed, Assessed \T\ reinforced patient's understanding of fall precautions, Provided non-skid footwear, Hourly rounding (assess needs \T\ fall precautionary measures) done. Abuse screen: Denies threats or abuse. Denies injuries from another. Nutritional screening: No deficits noted. Tuberculosis screening: No symptoms or risk factors identified. Assessment: 20:10 Reassessment: Patient and/or family updated on plan of care and expected duration. Pain br2 level reassessed. Patient is alert, oriented x 3, equal unlabored respirations, skin warm/dry/pink. General: Appears uncomfortable, Behavior is calm, cooperative. Pain: Complains of pain in buttocks Pain does not radiate. Neuro: Healy Agitation-Sedation Scale (RASS): 0 - Alert and Calm Level of Consciousness is awake, alert, obeys commands, Oriented to person, place, time, situation. GI: Reports RECTAL PAIN. : No signs and/or symptoms were reported regarding the genitourinary system. 21:10 Reassessment: Patient and/or family updated on plan of care and expected duration. Pain ha1 level reassessed. Patient is alert, oriented x 3, equal unlabored respirations, skin warm/dry/pink. 22:10 Reassessment: Patient and/or family updated on plan of care and expected duration. Pain ha1 level reassessed. Patient is alert, oriented x 3, equal unlabored respirations, skin warm/dry/pink. 23:10 Reassessment: Patient and/or family updated on plan of care and expected duration. Pain ha1 level reassessed. Patient is alert, oriented x 3, equal unlabored respirations, skin warm/dry/pink. 09/09 00:11 Reassessment: Patient appears in no apparent distress at this time. No changes from aa10 previously documented assessment. Patient and/or family updated on plan of care and expected duration. Pain level reassessed. Patient is alert, oriented x 3, equal unlabored respirations, skin warm/dry/pink. 01:16 Reassessment: Patient and/or family updated on plan of care and expected duration. Pain ha1 level reassessed. Patient is alert, oriented x 3, equal unlabored respirations, skin warm/dry/pink. Patient states feeling better. Patient states symptoms have improved. Vital Signs: 09/08 18:41 BP 151 / 85; Pulse 75; Resp 17; Temp 99.2(O); Pulse Ox 99% on R/A; MAP 100 mmHg; Height tm6 5 ft. 2 in. ; Pain 8/10; 20:29 BP 105 / 68; Pulse 79; Resp 20 S; Pulse Ox 99% on R/A; aa10 22:00 BP 130 / 87; Pulse 88; Resp 19 S; Pulse Ox 100% on R/A; ha1 23:00 BP 122 / 80; Pulse 63; Resp 18 S; Pulse Ox 100% on R/A; ha1 09/09 00:10 BP 119 / 84; Pulse 67; Resp 20 S; Pulse Ox 100% on R/A; aa10 01:17 BP 118 / 81; Pulse 61; Resp 18 S; Pulse Ox 100% on R/A; ha1 09/08 18:41 Pain Scale: Adult tm6 ED Course: 09/08 18:20 Patient arrived in ED. mr 18:24 Mily Hernandez FNP-C is PHCP. kb 18:24 Vicente Hogan MD is Attending Physician. kb 18:42 Arm band placed on right wrist. tm6 18:44 Triage completed. tm6 19:09 Edna Yi, RN is Primary Nurse. me1 19:54 Alessandra Thomson, RN is Primary Nurse. br2 20:21 Inserted saline lock: 20 gauge in right antecubital area, using aseptic technique. br2 Blood collected. Flushed with 10 mL NS. 20:26 CMP Sent. aa10 20:26 CBC with Diff Sent. aa10 20:27 Patient has correct armband on for positive identification. Allergy band placed. Fall aa10 risk band placed. Placed in gown. Bed in low position. Call light in reach. Side rails up X 1. Provided Education on: plan of care. 20:47 Radiology exam delayed due to test not completed at this time. vm2 22:32 CT Abd/Pelvis - IV Contrast Only In Process Unspecified. EDMS 09/09 01:16 No provider procedures requiring assistance completed. IV discontinued, intact, ha1 bleeding controlled, No redness/swelling at site. Pressure dressing applied. Administered Medications: 09/08 20:25 Drug: Ketorolac IVP 15 mg IVP once Route: IVP; Site: right antecubital; aa10 21:26 Follow up: Response: No adverse reaction; Marked relief of symptoms; Pain is decreased aa10 20:25 Drug: NS 0.9% IV 1000 ml IV at 1000 ml once; to be given as a bolus over 60 minutes aa10 Route: IV; Rate: 1000 ml; Site: right antecubital; 21:26 Follow up: Urine output 1000 ml; Response: No adverse reaction aa10 09/09 00:00 Follow up: Response: No adverse reaction; IV Status: Completed infusion; IV Intake: ha1 1000ml Medication: 09/08 20:28 VIS not applicable for this client. aa10 Intake: 09/09 00:00 IV: 1000ml; Total: 1000ml. ha1 Output: 09/08 21:26 Urine: 1000ml; Total: 1000ml. aa10 Outcome: 09/09 00:55 Discharge ordered by . kb 01:16 Discharged to home ambulatory, with family, ha1 01:16 Condition: stable 01:16 Discharge instructions given to patient, family, Instructed on discharge instructions, follow up and referral plans. medication usage, Demonstrated understanding of instructions, follow-up care, medications, wound care, Prescriptions given X 1, 01:18 Patient left the ED. ha1 Signatures: Dispatcher [employer] EDWI Mily Hernandez, AME LACE MENDER-Becki Nicole, Marin Funes mr Nola Black vm2 Kaci Pastrana, RN RN ha1 Edna Yi, RN RN tn1 Lissette Chow, RN RN tm6 Alessandra Thomson, RN RN br2 Neil Turner, RN RN aa10
--- NOTE | 2024-09-09 00:56 | EDPHYS ---
Physician Documentation [facility] Name: Edna Jhaveri Age: 29 yrs Sex: Female : 1995 Arrival Date: 09/08/2024 Time: 18:16 Bed 8 Private MD: ED Physician Vicente Hogan HPI: 09/08 23:30 This 29 yrs old Female presents to ER via Ambulatory with complaints of kb Hemorrhoids. 23:30 Pt is a 29 year old female who presents for rectal pain that started over one month kb ago. States she had some bleeding from rectum so she thought it was hemorrhoids. States she has been trying everything over the counter, but the pain has not gone away. States the bleeding has resolved. Denies fever, n/v. 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 - Infectious Disease History:: Denies. - Social history:: Smoking status: Patient denies any tobacco usage or history of. ROS: 23:31 Constitutional: As per HPI kb Exam: 23:31 Constitutional: This is a well developed, well nourished patient who is awake, alert, kb and in no acute distress. Head/Face: Normocephalic, atraumatic. ENT: Moist Mucous membranes Cardiovascular: Regular rate Respiratory: Respirations even and unlabored. No increased work of breathing. Talking in full sentences Abdomen/GI: Soft, non-tender. No distention Skin: Warm, dry with normal turgor. Normal color. MS/ Extremity: Pulses equal, no cyanosis. Neurovascular intact. Full, normal range of motion. Neuro: Awake and alert, GCS 15, oriented to person, place, time, and situation. 23:31 Abdomen/GI: Inspection: abdomen appears normal, Bowel sounds: normal, Palpation: abdomen is soft and non-tender, in all quadrants, Rectal exam: rectal tone normal, Stool: normal, hemorrhoid(s), external, without bleeding, without inflammation, without thrombosis, without pain, tenderness, that is moderate, at 3 o clock, the exam is chaperoned by the nurse, Vital Signs: 18:41 BP 151 / 85; Pulse 75; Resp 17; Temp 99.2(O); Pulse Ox 99% on R/A; MAP 100 mmHg; Height tm6 5 ft. 2 in. ; Pain 8/10; 20:29 BP 105 / 68; Pulse 79; Resp 20 S; Pulse Ox 99% on R/A; aa10 22:00 BP 130 / 87; Pulse 88; Resp 19 S; Pulse Ox 100% on R/A; ha1 23:00 BP 122 / 80; Pulse 63; Resp 18 S; Pulse Ox 100% on R/A; ha1 09/09 00:10 BP 119 / 84; Pulse 67; Resp 20 S; Pulse Ox 100% on R/A; aa10 01:17 BP 118 / 81; Pulse 61; Resp 18 S; Pulse Ox 100% on R/A; ha1 09/08 18:41 Pain Scale: Adult tm6 MDM: 09/08 18:25 Medical Screening Exam initiated kb 23:32 Differential diagnosis: hemorrhoids, abscess. Data reviewed: vital signs, nurses notes. 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 09/08 20:04 Order name: CBC with Diff; Complete Time: 20:44 kb 09/08 20:04 Order name: CMP; Complete Time: 20:44 kb 09/08 20:55 Order name: Urinalysis w/ reflexes; Complete Time: 21:12 ha1 09/08 20:55 Order name: Test, Urine; Complete Time: 22:12 ha1 09/08 20:04 Order name: CT Abd/Pelvis - IV Contrast Only 09/08 20:04 Order name: IV Start; Complete Time: 20:54 kb Administered Medications: 09/08 20:25 Drug: Ketorolac IVP 15 mg IVP once Route: IVP; Site: right antecubital; aa10 21:26 Follow up: Response: No adverse reaction; Marked relief of symptoms; Pain is decreased aa10 20:25 Drug: NS 0.9% IV 1000 ml IV at 1000 ml once; to be given as a bolus over 60 minutes aa10 Route: IV; Rate: 1000 ml; Site: right antecubital; 21:26 Follow up: Urine output 1000 ml; Response: No adverse reaction aa10 09/09 00:00 Follow up: Response: No adverse reaction; IV Status: Completed infusion; IV Intake: ha1 1000ml Disposition: 16:18 Co-signature as Attending Physician, Vicente Hogan MD I reviewed the patient's care rn provided by the Advanced Practice Provider and agree with the diagnosis and treatment plan. Disposition Summary: 09/09/24 00:55 Discharge Ordered Notes: Location: Home kb Condition: Stable kb Diagnosis - Unspecified hemorrhoids kb Followup: kb - With: Emergency Department - When: As needed - Reason: Worsening of condition Followup: kb - With: Private Physician - When: 2 - 3 days - Reason: Recheck today's complaints, Continuance of care, Re-evaluation by your physician Discharge Instructions: - Discharge Summary Sheet kb - Hemorrhoids, [id number] kb Forms: - Medication Reconciliation Form kb - Antibiotic Education kb - Prescription Opioid Use kb - Patient Portal Instructions kb - Leadership Thank You Letter kb Prescriptions: - Anusol-HC 25 mg Rectal Suppository - insert 1 suppository RECTAL route every 12 hours As needed; 20 suppository; kb Refills: 0, Product Selection Permitted Signatures: Dispatcher [employer] Mily Reddy, CONSTRUCTION ACCOUNTANT-C CONSTRUCTION ACCOUNTANT-Ckb Vicente Hogan MD MD rn Masterson, Tawney RN RN 6 Neil Turner RN RN aa10 Kaci Pastrana RN ha1
[2024-09-09 01:36] VITALS: TEMP 99.2
[2024-09-09 01:39] VITALS: O2SAT 100
[2024-09-09 01:44] VITALS: BP 118/81
== END 2024-09-09 01:18 | disposition home or self-care (01) ==
LOC: ER 18:16
DX: K64.9 Unspecified hemorrhoids (principal); K76.0 Fatty (change of) liver, not elsewhere classified
CPT/HCPCS: 36415; 74177; 80053; 81003; 81025; 85025; 96361; 96374; 99284; J7030; Q9967